=== PATIENT | female | born 1985 | race Caucasian/White ===

== ENCOUNTER 2020-01-08 14:46 | Outpatient (REF) | payer MEDICAID, SELFPAY ==
[2020-01-09 04:27] LABS: CT PCR DETECTED (Not Detect.); NG PCR NOT DETECTED (Not Detect.)
[2020-01-09 09:33] LABS: BV Int Neg Control Negative (Negative); BV Int Pos Control Positive (Positive)
[2020-01-15 20:09] LABS: HPV 16 RNA DETECTED (NOT DETECTED); HPV mRNA E6/E7 rflx Detected (Not Detected)
== END 2020-01-08 14:47 | disposition home or self-care (01) ==
LOC: HO.LAB 14:46
PROVIDERS: Visit Provider Advanced Practice Midwife
DX: Z01.419 Encounter for gynecological examination (general) (routine) without abnormal findings (principal); R10.2 Pelvic and perineal pain; Z20.2 Contact with and (suspected) exposure to infections with a predominantly sexual mode of transmission; R87.610 Atypical squamous cells of undetermined significance on cytologic smear of cervix (ASC-US); R87.810 Cervical high risk human papillomavirus (HPV) DNA test positive
CPT/HCPCS: 87480; 87491; 87510; 87591; 87624; 87625; 87660; 88141; 88142

== ENCOUNTER 2020-01-15 15:34 | Outpatient (REF) | payer MEDICAID, SELFPAY ==
--- NOTE | 2020-01-15 15:37 | US_ITS ---
EXAMINATION: ULTRASOUND PELVIS COMPLETE. CLINICAL INFORMATION: Pelvic and perineal pain COMPARISON: Ultrasound pelvis 07/14/2019 TECHNIQUE: Transabdominal and transvaginal ultrasound pelvis is performed. FINDINGS: The uterus is anteverted measuring 11.1 cm in length, 5.1 cm in AP and 5.8 cm in transverse dimension. No focal uterine lesions seen. The endometrial thickness is 1.3 cm. Right ovary measures 4.1 x 1.7 x 3.2 cm and volume 11.9 mL. It appears unremarkable. Previously right ovary measured 3.3 x 2.1 x 1.6 cm. There is small right para ovarian cyst measuring 1.5 x 1.5 x 1.4 cm. Left ovary measures 4.3 x 2.2 x 3.4 cm and volume 17.0 mL. It appears unremarkable. Previously it measured 4.2 x 3.0 x 2.3 cm. There is no free fluid in cul-de-sac US/US transvaginal IMPRESSION: Small right para ovarian cyst. The uterus and ovaries are unremarkable.
--- NOTE | 2020-01-15 15:37 | US_ITS ---
EXAMINATION: ULTRASOUND PELVIS COMPLETE. CLINICAL INFORMATION: Pelvic and perineal pain COMPARISON: Ultrasound pelvis 07/14/2019 TECHNIQUE: Transabdominal and transvaginal ultrasound pelvis is performed. FINDINGS: The uterus is anteverted measuring 11.1 cm in length, 5.1 cm in AP and 5.8 cm in transverse dimension. No focal uterine lesions seen. The endometrial thickness is 1.3 cm. Right ovary measures 4.1 x 1.7 x 3.2 cm and volume 11.9 mL. It appears unremarkable. Previously right ovary measured 3.3 x 2.1 x 1.6 cm. There is small right para ovarian cyst measuring 1.5 x 1.5 x 1.4 cm. Left ovary measures 4.3 x 2.2 x 3.4 cm and volume 17.0 mL. It appears unremarkable. Previously it measured 4.2 x 3.0 x 2.3 cm. There is no free fluid in cul-de-sac US/US pelvic complete IMPRESSION: Small right para ovarian cyst. The uterus and ovaries are unremarkable.
== END 2020-01-15 15:35 | disposition home or self-care (01) ==
LOC: HO.US 15:34
PROVIDERS: PCP Family Medicine; Visit Provider Advanced Practice Midwife
DX: R10.2 Pelvic and perineal pain (principal)
CPT/HCPCS: 76830; 76856

== ENCOUNTER → 2020-01-29 13:31 | Outpatient (BNVA) | payer MEDICAID, SELFPAY | PROVIDERS: PCP Family Medicine; Visit Provider Advanced Practice Midwife | DX: Z76.89 Persons encountering health services in other specified circumstances (principal) ==

== ENCOUNTER 2020-02-15 07:06 | Outpatient (REF) | payer MEDICAID, SELFPAY | END 2020-02-15 07:07 | disposition home or self-care (01) | LOC: HO.LAB 07:06 | PROVIDERS: Visit Provider Internal Medicine | DX: Z20.828 Contact with and (suspected) exposure to other viral communicable diseases (principal) | CPT/HCPCS: C9803; U0003 ==

== ENCOUNTER 2020-04-05 14:12 | Outpatient (REF) | payer MEDICAID, SELFPAY | END 2020-04-05 14:13 | disposition home or self-care (01) | LOC: HO.LAB 14:12 | PROVIDERS: Visit Provider Obstetrics & Gynecology | DX: R87.610 Atypical squamous cells of undetermined significance on cytologic smear of cervix (ASC-US) (principal); R87.810 Cervical high risk human papillomavirus (HPV) DNA test positive | CPT/HCPCS: 57454; 88305 ==

== ENCOUNTER → 2020-04-19 11:55 | Outpatient (BNVA) | payer MEDICAID, SELFPAY | PROVIDERS: Visit Provider Obstetrics & Gynecology | DX: R87.610 Atypical squamous cells of undetermined significance on cytologic smear of cervix (ASC-US) (principal); R87.810 Cervical high risk human papillomavirus (HPV) DNA test positive ==

== ENCOUNTER 2020-05-03 14:20 | Outpatient (REF) | payer MEDICAID, SELFPAY ==
[2020-05-04 09:19] LABS: CT PCR NOT DETECTED (Not Detect.); NG PCR NOT DETECTED (Not Detect.)
== END 2020-05-03 14:21 | disposition home or self-care (01) ==
LOC: HO.LAB 14:20
PROVIDERS: Visit Provider Advanced Practice Midwife
DX: Z20.2 Contact with and (suspected) exposure to infections with a predominantly sexual mode of transmission (principal)
CPT/HCPCS: 87491; 87591; 99212

== ENCOUNTER 2020-06-24 08:19 | Outpatient (REF) | payer MEDICAID, SELFPAY ==
[2020-06-24 13:56] LABS: CT PCR NOT DETECTED (Not Detect.); NG PCR NOT DETECTED (Not Detect.)
[2020-06-25 12:05] LABS: BV Int Neg Control Negative (Negative); BV Int Pos Control Positive (Positive)
== END 2020-06-24 08:20 | disposition home or self-care (01) ==
LOC: HO.LAB 08:19
PROVIDERS: PCP Family Medicine; Visit Provider Advanced Practice Midwife
DX: Z11.3 Encounter for screening for infections with a predominantly sexual mode of transmission (principal); R10.2 Pelvic and perineal pain
CPT/HCPCS: 81003; 87480; 87491; 87510; 87591; 87660; 99212

== ENCOUNTER 2020-07-10 09:09 | Outpatient (REF) | payer MEDICAID, SELFPAY ==
[2020-07-10 14:12] LABS: CT PCR NOT DETECTED (Not Detect.); NG PCR NOT DETECTED (Not Detect.)
[2020-07-13 14:17] LABS: HPV 16 RNA DETECTED (NOT DETECTED); HPV mRNA E6/E7 rflx Detected (Not Detected)
== END 2020-07-10 09:10 | disposition home or self-care (01) ==
LOC: HO.LAB 09:09
PROVIDERS: Visit Provider Obstetrics & Gynecology
DX: Z01.419 Encounter for gynecological examination (general) (routine) without abnormal findings (principal); R10.2 Pelvic and perineal pain
CPT/HCPCS: 81025; 87491; 87591; 87624; 87625; 88142

== ENCOUNTER 2020-07-16 10:01 | Outpatient (REF) | payer MEDICAID, SELFPAY ==
--- NOTE | ~2020-07-16 | US_ITS ---
EXAMINATION: PELVIC ULTRASOUND CLINICAL INFORMATION: Pain COMPARISON: Previous pelvic ultrasounds, most recent December 2019 TECHNIQUE: Transabdominal and transvaginal pelvic ultrasound was performed. Transvaginal exam was performed for better visualization of the uterus and ovaries. FINDINGS: The uterus is anteverted and measures 9 x 5.5 x 6.8 cm in dimension. No focal uterine lesion is seen. Endometrial thickness is normal measuring 1.4 cm. The right ovary measures 4 x 1.9 x 1.7 cm. There is a 1.4 x 1.6 x 1.7 cm simple right adnexal or paraovarian cyst. This may represent the same cyst seen on previous exam. There is a second smaller 1 x 0.7 x 0.8 cm right adnexal or paraovarian cyst. The left ovary is normal-appearing and measures 2.5 x 2.4 x 2.9 cm. There is a small amount of fluid in the pelvis. US/US pelvic and transvaginal IMPRESSION: Two simple right adnexal or paraovarian cysts, largest measuring 1.4 x 1.6 x 1.7 cm. This may represent the same cyst seen on previous exams.
== END 2020-07-16 10:02 | disposition home or self-care (01) ==
LOC: HO.HMGCX 10:01
PROVIDERS: Visit Provider Obstetrics & Gynecology
DX: R10.2 Pelvic and perineal pain (principal)
CPT/HCPCS: 76830; 76856

== ENCOUNTER 2020-07-31 09:04 | Outpatient (REF) | payer MEDICAID, SELFPAY | END 2020-07-31 09:05 | disposition home or self-care (01) | LOC: HO.LAB 09:04 | PROVIDERS: PCP Family Medicine; Visit Provider Obstetrics & Gynecology | DX: R10.2 Pelvic and perineal pain (principal); A63.0 Anogenital (venereal) warts; Z79.899 Other long term (current) drug therapy | CPT/HCPCS: 57454; 88305; 88342; 88360; 99212 ==

== ENCOUNTER 2020-08-04 11:47 | Emergency (ER) | payer MEDICAID, SELFPAY ==
--- NOTE | ~2020-08-04 | CT_ITS ---
EXAMINATION: CT FACIAL BONES WITHOUT CONTRAST CLINICAL INFORMATION: 34-year-old female with history of right mandibular pain after dislocation, reduction. COMPARISON: None TECHNIQUE: Noncontrast multidetector CT imaging examination of facial bones performed. Axial images are presented at 1.5 mm and 3 mm slice thickness. Coronal and sagittal reformatted images were generated and reviewed. This CT examination was performed using dose optimization techniques as appropriate, variously including the following: *Automated exposure control *Adjustment of mA and/or kV according to patient size (this includes techniques or standardized protocols for targeted exams where dose is matched to indication/reason for exam; i.e. extremities or head) *Use of iterative reconstruction technique DLP: 309 mGy-cm FINDINGS: The globes and orbital choe, including lamina papyracea, are intact. The orbital apex, optic canals, and retrobulbar fat planes are normal. The maxilla, mandible and temporomandibular joints are intact. No evidence of fracture, subluxation or effusion at either temporomandibular joint. No evidence of periodontal disease. Nasal bones, pterygoid plates and zygomatic arches are normal. Mucosal thickening/secretions of the inferior left maxillary antrum without air-fluid level. Also, secretions are noted within a left anterior ethmoid air cell. Otherwise, the paranasal sinuses are well-aerated, and the ostiomeatal units are patent. CT/CT facial bones wo con IMPRESSION: No facial bone injury. Specifically, no evidence of fracture or malalignment at the right temporomandibular joint.
[2020-08-04 12:08] VITALS: BP 128/78; PULSE 97; RESP 18; TEMP 36.6; O2SAT 98; BMI 29.0
--- NOTE | 2020-08-04 12:38 | ED_ITS ---
HPI - Dental/Oral General Chief complaint: Dental/Oral Stated complaint: dislocated jaw? dental pain Time Seen by Provider: 08/04/20 12:19 History of Present Illness HPI Narrative: Patient complains of right mandible pain after her jaw dislocated as it has done frequently in her life and she put it back herself and usually there is no discomfort after its back but now there is lots of pain on the right side of the mandible, no headache no ear pain no neck pain Related Data Home Medications Medication Instructions Recorded Confirmed propranolol 60 mg capsule,24 60 mg PO DAILY 01/29/20 hr,extended release Previous Rx's Medication Instructions Recorded azithromycin 500 mg tablet 1,000 mg PO DAILY 1 Days #2 tab 01/09/20 fluconazole 150 mg tablet 150 mg PO DAILY #1 tab 01/09/20 metronidazole 0.75 % vaginal gel 1 appful VAGINAL DAILY PRN 5 Days 01/09/20 #70 g metronidazole 0.75 % vaginal gel 1 appful VAGINAL BEDTIME 5 Days 06/25/20 #70 g acetaminophen 1,000 mg PO QID PRN #30 tab 08/04/20 ibuprofen 600 mg PO Q6H PRN #20 tab 08/04/20 oxycodone 5 mg PO Q6H PRN #14 tab 08/04/20 Allergies Allergy/AdvReac Type Severity Reaction Status Date / Time No Known Allergies Allergy Verified 07/10/20 09:19 Review of Systems Review of Systems: Positive right-sided jaw pain Negatives are no fever no chills no dizziness no weakness no fainting of feeling faint no headache no ear pain no difficulty breathing or swallowing no difficulty speaking no throat pain no neck pain no chest pain no shortness of breath Yes all other systems are reviewed and are negative [facility] Past Medical History Source: nursing notes reviewed Medical History (Updated 08/04/20 @ 14:13 by BERNADETTE Storm) See's palsy Dysplasia of cervix, low grade (OLAYINKA 1) Migraine Surgical History Hx of tubal ligation Social History Social History Alcohol intake: never Patient Tobacco Use Status: Never used Tobacco Advance Directives: No Advance Directives Information Provided: No Patient : No Gender identity: female Physical Exam Vital Signs: Vital Signs: Last Vital Signs Temp 97.9 F 08/04/20 12:08 Pulse 97 08/04/20 12:08 Resp 18 08/04/20 12:08 BP 128/78 08/04/20 12:08 Pulse Ox 98 08/04/20 12:08 Body Mass Index 29.0 General appearance no acute distress Head is normocephalic atraumatic The facial exam the patient can open and close mouth easily, she is able to speak easily there is no drooling There is tenderness over the right side of the mandible and the right TMJ but no swelling or deformity The ear exam the right ear has patent canal with normal tympanic membrane The pharynx is clear, no trismus, voice is normal, well hydrated, no swelling The neck is supple Chest is clear to auscultation bilaterally with symmetric breath sounds Heart no murmur Extremities full range of motion x4 Neuro no focal motor or sensory deficit Course Course Course Narrative: Patient with frequent mandible dislocations who is able to the reduce the mandible dislocation by herself did that this morning and now has lots of pain in the right side of the mandible which is unusual for her CT scan showed normal alignment without any evidence of bony injury Patient is able to speak and open and close mouth and is advised to get a referral from primary care to follow with oral surgeon or maxillofacial surgeon to see if there is any possible repair for the frequent dislocations She is discharged to follow-up with pain medication as needed MDM - Dental/Oral Lab Data Labs: Lab Results 08/04/20 Range/Units 12:51 Urine Test NEGATIVE (NEGATIVE) Discharge Plan Discharge Clinical Impression: Dislocation of mandible Patient Disposition: Home, Self-Care Additional Instructions: CT scan showed normal alignment with no fracture in the right side of the mandible Pain is most likely from straining of soft tissue muscles and ligaments in the area See primary doctor for referral to oral surgeon or maxillofacial surgeon to see if there is any possible treatment for these frequent dislocations Return any time any worse condition or any concerns Prescriptions: New acetaminophen 500 mg tablet 1,000 mg PO QID PRN (Reason: pain) Qty: 30 RF: 0 ibuprofen 600 mg tablet 600 mg PO Q6H PRN (Reason: pain) Qty: 20 RF: 0 oxycodone 5 mg tablet 5 mg PO Q6H PRN (Reason: pain) Qty: 14 RF: 0 No Action azithromycin 500 mg tablet 1,000 mg PO DAILY 1 Days Qty: 2 RF: 0 metronidazole [Metrogel Vaginal] 0.75 % gel 1 appful vaginal DAILY PRN (Reason: Bacterial Vaginosis) 5 Days Qty: 70 RF: 0 fluconazole [Diflucan] 150 mg tablet 150 mg PO DAILY Qty: 1 RF: 0 metronidazole [Metrogel Vaginal] 0.75 % gel 1 appful vaginal BEDTIME 5 Days Qty: 70 RF: 0 propranolol 60 mg capsule,extended release 24 hr 60 mg PO DAILY RF: 0
[2020-08-04 13:00] LABS: UPreg QC Valid YES; Urine Pregnancy NEGATIVE (NEGATIVE)
[2020-08-04] MEDS: Ibuprofen 600 MG TABLET PO (14:05)
== END 2020-08-04 14:35 | disposition home or self-care (01) ==
PROVIDERS: Physician Assistant Medical; Emergency Provider Emergency Medicine; PCP Family Medicine
DX: M24.49 Recurrent dislocation, other specified joint (principal)
CPT/HCPCS: 70486; 81025; 99284

== ENCOUNTER → 2020-08-20 15:48 | Outpatient (BNVA) | payer MEDICAID, SELFPAY | PROVIDERS: PCP Family Medicine; Visit Provider Obstetrics & Gynecology ==

== ENCOUNTER → 2020-08-26 13:08 | Outpatient (BNVA) | payer MEDICAID, SELFPAY | PROVIDERS: Visit Provider Obstetrics & Gynecology | DX: D06.9 Carcinoma in situ of cervix, unspecified (principal) | CPT/HCPCS: 99212 ==

== ENCOUNTER 2020-08-30 11:15 | Day surgery (SDC) | payer MEDICAID, SELFPAY ==
--- NOTE | 2020-08-29 09:26 | HO.ANESPROP2 ---
Documented by User: Jenni Guerrero 08/29/20 09:26 HPI - Anesthesia Eval Consult details Narrative: 34yo F for LEEP [facility]one PMFSH Active Problems Active Problems: All Active Problems (Updated 08/20/20 @ 15:50 by Lito Rodas MD) OLAYINKA III (cervical intraepithelial neoplasia grade III) with severe dysplasia (Acute) Chlamydia contact, treated (Acute) Pelvic pain in female (Acute) Well woman exam (Acute) HPV (human papilloma virus) anogenital infection (Acute) Past Medical History Medical History See's palsy Dysplasia of cervix, low grade (OLAYINKA 1) Migraine Surgical History Surgical History Hx of tubal ligation Social History Social History Alcohol intake: never Patient Tobacco Use Status: Never used Tobacco Second Hand Smoke Exposure: No Use of substances other than those prescribed or required for medical reasons: No Are you DNR?: No Advance Directives: No Advance Directives Information Provided: Yes Advance Directives on File: No Patient : No Gender identity: female Meds Allergies Allergy/AdvReac Type Severity Reaction Status Date / Time No Known Allergies Allergy Verified 08/26/20 13:14 Home Medications Medication Instructions Recorded Confirmed Last Taken Type propranolol 60 mg capsule,24 60 mg PO DAILY 01/29/20 Unknown History hr,extended release Exam Exam Date and Time: August 29, 2020925 Assessment and Plan Assessment Anesthesia Assessment: Chart Reviewed Documented by User: Kimberly Campbell 08/30/20 13:50 [facility] Past Medical History Medical History See's palsy Dysplasia of cervix, low grade (OLAYINKA 1) Migraine Surgical History Surgical History Hx of tubal ligation Social History Social History Alcohol intake: never Patient Tobacco Use Status: Never used Tobacco Second Hand Smoke Exposure: No Use of substances other than those prescribed or required for medical reasons: No Are you DNR?: No Advance Directives: No Advance Directives Information Provided: Yes Advance Directives on File: No Patient : No Gender identity: female Meds Allergies Allergy/AdvReac Type Severity Reaction Status Date / Time No Known Allergies Allergy Verified 08/26/20 13:14 Home Medications Medication Instructions Recorded Confirmed Last Taken Type propranolol 60 mg capsule,24 60 mg PO DAILY 01/29/20 Unknown History hr,extended release Exam Airway Mallampati Class: II TM Dist: >3cm Neck ROM: Full Assessment and Plan Assessment Anesthesia Assessment: Anesthesia Plan Discussed and Chart Reviewed Final Anesthetic Review NPO: Yes ASA Class: II Final Preanesthetic Review: No Changes in Pt Med Stat, Meds/Allgs Chart Reviewed, Consent Obtained/Reviewed and Anes Risks/Benef Reviewed Patient Risk: Low Procedure Risk: Low Assessment/Block/Sedation in SS: Assess/Block/Sedation-SS Anesthetic Plan Anesthetic Plan: MAC: Disposition: Standard PACU
[2020-08-30 12:03] LABS: UPreg QC Valid YES; Urine Pregnancy NEGATIVE (NEGATIVE)
[2020-08-30 12:17] VITALS: BMI 28.7
[2020-08-30 12:19] VITALS: BP 112/70; PULSE 79; RESP 16; TEMP 36.3; O2SAT 98
[2020-08-30] MEDS: Lactated Ringers 1,000 ML 100 ML IVCONT (12:33)
--- NOTE | 2020-08-30 13:49 | MHC.SHP ---
Pre-Procedural Eval Section A Date of Service: 08/30/20 The patient is an INPATIENT: No Changes since office visit: No Cold of Flu in the past 2 weeks, No New Medical Problems, No Changes in Medication and No Patient answered all questions The History & Physical has been completed within 30 days and I have reviewed it.: Yes Section B Chief Complaint: anogenital warts Allergies: Allergies Allergy/AdvReac Type Severity Reaction Status Date / Time No Known Allergies Allergy Verified 08/26/20 13:14 Plan Diagnosis/Plan: Unchanged I have reviewed the history and physical and performed a pertinent physical examination on my patient. No changes have occurred unless specified.
--- NOTE | 2020-08-30 14:18 | P.BOP_ITS ---
Brief Operative Note Date of Service: 08/30/20 Pre-op diagnosis: OLAYINKA 3 with positive ECC Post-op diagnosis: same Procedure: LEEP CONE with post CONE ECC Surgeon: Lito Rodas MD Anesthesia: local and other (Paracervical block) Was an Biofuels Plant Construction Worker used for this Procedure?: No Estimated blood loss (mL): 0 Pathology: other (Cervical cone, Endocx, Post cone ECC) Disposition: other (Home)
--- NOTE | 2020-08-30 14:19 | W.PM.OPN ---
Operative Note Operative Note Date of Service: 01/26/20 Narrative: Preop diagnosis: OLAYINKA 3 with + ECC Operation: LEEP Cone with post cone ECC Post op diagnosis: same Anesthesia: paracervical block Complications: none Pathology: Cervical cone with endocervix & post cone RCC QBL: minimal Procedure: The patient was put in the dorsal lithotomy position, was prepped and draped in the usual sterile fashion. A sterile speculum was inserted inside the patient vagina. Using Lugol solution the cervix with Dyed with Lugol solution to identifiy the abnormal demarcating line. 10 cc of Marcaine0.5% with epinephrine were given at 2,4 , 8, and 10 o'clock. Using a medium-size loop wire, the cervical cone was excised followed by the endocervix, post cone ECC was done afterwards. Hemostasis was assured using cautery and Monsel solution. All instruments were taken out of the patient's vaginal cavity. the patient tolerated the procedure well and was discharged home with the following instructions: call if temperature is above 100.4, vaginal bleeding, abdominal pain or nausea or vomiting. Follow-up in the office in 2 weeks for postop visit
[2020-08-30 14:20] VITALS: BP 85/52; PULSE 88; RESP 16; TEMP 36.4; O2SAT 98
[2020-08-30 14:35] VITALS: BP 106/61; PULSE 91; RESP 16; O2SAT 97
[2020-08-30] MEDS: Acetaminophen 325 MG TABLET 650 MG PO (14:46)
[2020-08-30 14:50] VITALS: BP 107/71; PULSE 77; RESP 16; TEMP 36.4; O2SAT 99
== END 2020-08-30 15:18 ==
LOC: HO.SSS 11:16
PROVIDERS: PCP Family Medicine; Visit Provider Obstetrics & Gynecology
PROC: 0UBC7ZZ Excision of Cervix, Via Natural or Artificial Opening (ICD-10-PCS; CPT 57522; principal; 2020-08-30 12:50)
DX: A63.0 Anogenital (venereal) warts (principal); D06.0 Carcinoma in situ of endocervix; N72 Inflammatory disease of cervix uteri; Z87.410 Personal history of cervical dysplasia; G51.0 Bell's palsy; Z79.899 Other long term (current) drug therapy
CPT/HCPCS: 57522; 81025; 88305; 88307; J1100; J2250; J2405; J3010

== ENCOUNTER → 2020-09-24 13:36 | Outpatient (BNVA) | payer MEDICAID, SELFPAY | PROVIDERS: Visit Provider Obstetrics & Gynecology ==

== ENCOUNTER → 2020-10-02 14:00 | Outpatient (BNVA) | payer MEDICAID, SELFPAY | PROVIDERS: Visit Provider Obstetrics & Gynecology | DX: D06.9 Carcinoma in situ of cervix, unspecified (principal) | CPT/HCPCS: 99212 ==

== ENCOUNTER 2020-10-04 12:19 | Day surgery (SDC) | payer MEDICAID, SELFPAY ==
--- NOTE | 2020-10-03 15:10 | P.CONAN_ITS ---
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 (Acute) Chlamydia contact, treated (Acute) Pelvic pain in female (Acute) Well woman exam (Acute) HPV (human papilloma virus) anogenital infection (Acute) Past Medical History Medical History See's palsy Dysplasia of cervix, low grade (OLAYINKA 1) Migraine Surgical History Surgical History Hx of tubal ligation Social History Social History Alcohol intake: never Patient Tobacco Use Status: Never used Tobacco Second Hand Smoke Exposure: No Are you DNR?: No Advance Directives: No Advance Directives Information Provided: Yes Advance Directives on File: No Gender identity: Female Meds Allergies Allergy/AdvReac Type Severity Reaction Status Date / Time No Known Allergies Allergy Verified 08/26/20 13:14 Home Medications Medication Instructions Recorded Confirmed Last Taken Type propranolol 60 mg capsule,24 60 mg PO DAILY 01/29/20 Unknown History hr,extended release Exam Exam Date and Time: October 03, 2020 1510 Assessment and Plan Assessment Anesthesia Assessment: Chart Reviewed Documented by User: Kimberly Campbell MD 10/04/20 12:47 [facility] Past Medical History Medical History See's palsy Dysplasia of cervix, low grade (OLAYINKA 1) Migraine Family History Family history of problems with anesthesia: No Surgical History Surgical History Hx of tubal ligation History of Problems with Anesthesia: No Social History Social History Alcohol intake: never Patient Tobacco Use Status: Never used Tobacco Second Hand Smoke Exposure: No Are you DNR?: No Advance Directives: No Advance Directives Information Provided: Yes Advance Directives on File: No Gender identity: Female Meds Allergies Allergy/AdvReac Type Severity Reaction Status Date / Time No Known Allergies Allergy Verified 08/26/20 13:14 Home Medications Medication Instructions Recorded Confirmed Last Taken Type propranolol 60 mg capsule,24 60 mg PO DAILY 01/29/20 Unknown History hr,extended release Exam Airway Mallampati Class: II TM Dist: >3cm Neck ROM: Full Assessment and Plan Assessment Anesthesia Assessment: Anesthesia Plan Discussed Final Anesthetic Review Family History of Problems with Anesthesia: No History of Problems with Anesthesia: No NPO: Yes ASA Class: II Final Preanesthetic Review: No Changes in Pt Med Stat, Meds/Allgs Chart Reviewed, Consent Obtained/Reviewed and Anes Risks/Benef Reviewed Patient Risk: Low Procedure Risk: Low Assessment/Block/Sedation in SS: Assess/Block/Sedation-SS Anesthetic Plan Anesthetic Plan: MAC: Disposition: Standard PACU
[2020-10-04] VITALS (11 sets, daily range): BP systolic 107–114; BP diastolic 65–75; PULSE 62–89; RESP 16–20; TEMP 36.1–36.8; O2SAT 97–100; BMI 27.9
--- NOTE | 2020-10-04 12:32 | MHC.SHP ---
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 No changes have occurred unless specified.
[2020-10-04 12:43] LABS: UPreg QC Valid YES; Urine Pregnancy NEGATIVE (NEGATIVE)
[2020-10-04] MEDS: Lactated Ringers 1,000 ML 100 ML IVCONT (12:46)
--- NOTE | 2020-10-04 13:57 | P.BOP_ITS ---
Brief Operative Note Date of Service: 10/04/20 Pre-op diagnosis: OLAYINKA 3 with positive ECC Post-op diagnosis: same Procedure: LEEP cone was post cone ECC Surgeon: Lito Rodas MD Anesthesia: GETA Was an Electrical Installation Supervisor used for this Procedure?: No Estimated blood loss (mL): 150 Pathology: other (Cone, endocervix, post cone ECC) Condition: stable Disposition: PACU
--- NOTE | 2020-10-04 13:59 | W.PM.OPN ---
Operative Note Operative Note Date of Service: 10/04/20 Narrative: Preop diagnosis: OLAYINKA 3 with + ECC Operation: LEEP Cone with post cone ECC Post op diagnosis: same Anesthesia: paracervical block Complications: none Pathology: Cervical cone with endocervix & post cone ECC QBL: 150 cc Procedure: The patient was put in the dorsal lithotomy position, was prepped and draped in the usual sterile fashion. A sterile speculum was inserted inside the patient vagina. Colposcopy was done identified the abnormal area prior to Lugol solution. Using Lugol solution the cervix with Dyed with Lugol solution to identifiy the abnormal demarcating line. 2x1.0 Vicryl sutures was put at 3 and 06:00 o'clock to ligate the descending branches of the uterine artery. 10 cc of Marcaine0.5% with epinephrine were given at 2,4 , 8, and 10 o'clock. Using a medium-size loop wire, the anterior cervical lip was excised followed by the posterior cervical lip and endocervix, post cone ECC was done afterwards. Hemostasis was assured using cautery and Monsel solution. All instruments were taken out of the patient's vaginal cavity. the patient tolerated the procedure well and was discharged home with the following instructions: call if temperature is above 100.4, vaginal bleeding, abdominal pain or nausea or vomiting. Follow-up in the office in 2 weeks for postop visit
[2020-10-04] MEDS: Acetaminophen 325 MG TABLET 650 MG PO (14:42)
[2020-10-04] MEDS: oxyCODONE HCl Immed Release 5 MG TABLET PO ×2 (14:42→15:28)
[2020-10-04] MEDS: fentaNYL citrate/PF 100 MCG/2 ML VIAL 25 MCG IVPUSH (15:31)
== END 2020-10-04 16:08 | disposition home or self-care (01) ==
PROVIDERS: PCP Family Medicine; Visit Provider Obstetrics & Gynecology
PROC: 0UBC7ZZ Excision of Cervix, Via Natural or Artificial Opening (ICD-10-PCS; CPT 57522; principal; 2020-10-04 14:40)
DX: N87.1 Moderate cervical dysplasia (principal); N72 Inflammatory disease of cervix uteri; G51.0 Bell's palsy; Z98.51 Tubal ligation status
CPT/HCPCS: 57461; 81025; 88305; 88307; J1100; J2250; J2405; J3010

== ENCOUNTER → 2020-10-16 11:51 | Outpatient (BNVA) | payer MEDICAID, SELFPAY | PROVIDERS: PCP Family Medicine; Visit Provider Obstetrics & Gynecology ==

== ENCOUNTER → 2020-10-17 13:00 | Outpatient (BNVA) | payer MEDICAID, SELFPAY | PROVIDERS: PCP Family Medicine; Visit Provider Obstetrics & Gynecology | DX: D06.9 Carcinoma in situ of cervix, unspecified (principal); N76.0 Acute vaginitis; B96.89 Other specified bacterial agents as the cause of diseases classified elsewhere | CPT/HCPCS: 99212 ==

== ENCOUNTER 2021-09-08 14:01 | Outpatient (REF) | payer MEDICAID, SELFPAY ==
[2021-09-11 04:26] LABS: HPV mRNA E6/E7 rflx Not Detected (Not Detected)
== END 2021-09-08 14:02 | disposition home or self-care (01) ==
LOC: HO.LAB 14:01
PROVIDERS: Visit Provider Obstetrics & Gynecology
DX: Z01.419 Encounter for gynecological examination (general) (routine) without abnormal findings (principal); Z11.51 Encounter for screening for human papillomavirus (HPV); R10.2 Pelvic and perineal pain; A63.0 Anogenital (venereal) warts
CPT/HCPCS: 87624; 88142

== ENCOUNTER → 2022-08-06 09:51 | Outpatient (BNVA) | payer MEDICAID, SELFPAY | PROVIDERS: PCP Family Medicine; Visit Provider Nurse Practitioner Family | DX: G47.10 Hypersomnia, unspecified (principal); R06.83 Snoring | CPT/HCPCS: 99202 ==

== ENCOUNTER 2022-09-10 13:56 | Outpatient (REF) | payer MEDICAID, SELFPAY ==
[2022-09-10 18:07] LABS: CT PCR NOT DETECTED (Not Detect.); NG PCR NOT DETECTED (Not Detect.)
[2022-09-18 06:10] LABS: HPV mRNA E6/E7 rflx Not Detected (Not Detected)
== END 2022-09-10 13:57 | disposition home or self-care (01) ==
LOC: HO.LNP 13:56
PROVIDERS: PCP Family Medicine; Visit Provider Obstetrics & Gynecology
DX: Z01.419 Encounter for gynecological examination (general) (routine) without abnormal findings (principal); Z11.51 Encounter for screening for human papillomavirus (HPV); R10.2 Pelvic and perineal pain
CPT/HCPCS: 0353U; 81025; 87624; 88142

== ENCOUNTER 2022-09-10 13:56 | Outpatient (AMB) | payer MEDICAID, SELFPAY ==
--- NOTE | 2022-09-10 14:12 | MHC.OFFVIS ---
Intake Vital Signs 09/10/22 14:13 Height 5 ft 6 in Weight 189 lb BMI 30.5 BP 110/66 Intake Visit Reasons: Annual/do not rs Hazardous Materials Waste Technician Required: Yes Hazardous Materials Waste Technician Language: Compensation Business Partner Name: Moira ROSEN Information Interpreted: non-clinical & clinical Finance Consultant: Finance Consultant Present (Moira) Allergies No Known Allergies Allergy (Verified 09/10/22 14:17) Is last menstrual period known: Yes Last menstrual period: 09/03/22 Post menopausal: No HPI HPI Comments History of Present Illness Details Presenting for annual exam. Complaining of pelvic pain few days duration no associated urinary or GI symptoms no fever or chills. 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 Dysplasia of cervix, low grade (OLAYINKA 1) Migraine Surgical History History of surgery of uterus Hx of tubal ligation Family History Mother Fibromyalgia Father HTN (hypertension) Maternal Grandmother Uterine cancer Sister Uterine cancer Social History Alcohol intake: never Patient Tobacco Use Status: Never used Tobacco Second Hand Smoke Exposure: No Gender identity: Female Female Reproductive History Menstrual Age of Menarche: 18 Duration of menses: 6-7 days Date of last menstrual period: 09/03/22 control method: permanent sterilization Total pregnancies: 4 Full term: 3 Number of Living Children: 3 Ab spontaneous: 1 Date of last pap smear: 09/09/21 (negative) History of abnormal pap smear: Yes Review of Systems Const All systems reviewed & are unremarkable except as noted in HPI and below Card Reports as per HPI Resp Reports as per HPI GI Reports as per HPI and Reports no additional complaints Reports as per HPI Physical Exam Vital Signs: Last Vital Signs BP 110/66 09/10/22 14:13 BMI result Body Mass Index 30.5 Const General: cooperative, healthy appearing and comfortable Chest Chest palpation & inspection: normal inspection of the chest and normal palpation of entire chest wall Breast/axilla inspection: normal inspection of the breasts and normal inspection of the axillae Breast/axilla palpation: normal palpation of the breasts, normal palpation of the axillae and no axillary lymphadenopathy Resp Effort & Inspection: normal respiratory effort Auscultation: clear to auscultation bilaterally Percussion: percussion normal Cardio Palpation: normal PMI Rate: regular rate Rhythm: regular rhythm Heart sounds: no murmurs and no rubs Peripheral pulses: Peripheral pulses 2+ throughout GI Inspection: Yes normal to inspection Palpation (GI): Soft to palpation, nontender, no guarding, not rigid and No hepatosplenomegaly present Percussion: Yes normal to percussion Auscultation: normal bowel sounds Rectal Exam - Female: deferred General: Yes bladder normal to palpation External Female Exam: No lesion Speculum Exam - Vagina: normal appearance of the vagina, normal palpation, normal vaginal discharge and not erythematous Speculum Exam - Cervix: normal appearance of the cervix and normal palpation Bimanual exam- vagina & uterus: normal bimanual exam, normal palpation, uterine size normal, bladder normal to palpation, consistency normal and normal palpation Bimanual Exam- Adnexa, other: normal adnexae, no masses and no tenderness Assessment & Plan Assessment & Plan (1) Well woman exam: Comment: OLAYINKA 3 in 2020 s/p LEEP cone x2 with neg margins Code(s): Z01.419 - Encounter for gynecological examination (general) (routine) without abnormal findings Plan: Cotesting done. Counseled the patient about the recommended dietary allowance of 1000 mg of Calcium & 600 IU of vitamin D. The patient was instructed to perform monthly self-breast exams and to schedule an annual exam in a year; All questions answered and the patient verbalized understanding. Instructed the patient to schedule annual exam in a year (2) Pelvic pain in female: Code(s): R10.2 - Pelvic and perineal pain Plan: Urine dip and test done in the office were both negative. GC and chlamydia taken and pelvic ultrasound ordered. Discussed with the patient the differential diagnosis of pelvic pain including but not limited to adnexal, uterine masses, pelvic infections (PID), GI the (Irritable bowel syndrome, diverticulitis, others), musculoskeletal, myofascial pain abdominal wall , adhesions, endometriosis, psychological and others causes. Will check results and treat accordingly. All questions answered, the patient verbalized understanding. Instructed the patient to schedule follow-up appointment in 2 weeks Orders: Orders US pelvic and transvaginal Today R10.2 - Pelvic and perineal pain CT NG by PCR Today Z01.419 - Encounter for gynecological examination (general) (routine) without abnormal findings Pap Smear Today Z01.419 - Encounter for gynecological examination (general) (routine) without abnormal findings Coding Level of Care Code Est Pt Prev Care 18-39y(10076) Diagnoses Well woman exam Z01.419 Pelvic pain in female R10.2
[2022-09-10 14:13] VITALS: BP 110/66; BMI 30.5
== END 2022-09-10 14:45 | disposition home or self-care (01) ==
LOC: HO.HWS 13:56
PROVIDERS: PCP Family Medicine; Visit Provider Obstetrics & Gynecology
DX: Z01.419 Encounter for gynecological examination (general) (routine) without abnormal findings (principal); R10.2 Pelvic and perineal pain; Z32.02 Encounter for pregnancy test, result negative
CPT/HCPCS: 99395

== ENCOUNTER 2022-09-17 14:55 | Outpatient (REF) | payer MEDICAID, SELFPAY ==
--- NOTE | ~2022-09-17 | US_ITS ---
EXAMINATION: US PELVIS CLINICAL INFORMATION: Pelvic and perineal pain. COMPARISON: Pelvic ultrasounds dating between 07/16/2020 and 03/18/2018. TECHNIQUE: Ultrasound of the pelvis is performed using both transabdominal and transvaginal transducers along with Doppler. Transvaginal imaging is performed due to inadequate visualization transabdominally. FINDINGS: Uterus: The uterus is anteverted and measures 10.8 x 5.3 x 5.9 cm. The double wall endometrial thickness is 16 mm. The uterus is smooth in contour and has normal myometrial echogenicity. No visible fibroid. Adnexa: Both ovaries are visualized. There is normal color flow to the adnexa. There is no ovarian torsion. There is no pelvic ascites or fluid collection. Right ovary measures 3.9 x 2.4 x 2.3 cm. It contains dominant follicles. Left ovary measures 3.5 x 1.3 x 1.7 cm. US/US pelvic and transvaginal IMPRESSION: No acute finding. Endometrial stripe upper normal in thickness.
== END 2022-09-17 14:56 | disposition home or self-care (01) ==
LOC: HO.US 14:55
PROVIDERS: PCP Family Medicine; Visit Provider Obstetrics & Gynecology
DX: R10.2 Pelvic and perineal pain (principal)
CPT/HCPCS: 76830; 76856

== ENCOUNTER → 2022-09-28 14:01 | Outpatient (REF) | payer MEDICAID, SELFPAY | LOC: HO.SL 14:01 | PROVIDERS: PCP Family Medicine; Visit Provider Nurse Practitioner Family | DX: G47.10 Hypersomnia, unspecified (principal) | CPT/HCPCS: 95806 ==

== ENCOUNTER → 2022-09-28 14:24 | Outpatient (BNV) | payer MEDICAID, SELFPAY | PROVIDERS: PCP Family Medicine; Visit Provider Psychiatry & Neurology Neurology | DX: G47.10 Hypersomnia, unspecified (principal) | CPT/HCPCS: 95806 ==

== ENCOUNTER 2022-10-28 11:31 | Outpatient (AMB) | payer MEDICAID, SELFPAY ==
[2022-10-28 11:37] VITALS: BMI 31.8
--- NOTE | 2022-10-28 11:37 | MHC.OFFVIS ---
Intake Vital Signs 10/28/22 11:37 Height 5 ft 6 in Weight 197 lb BMI 31.8 Intake Visit Reasons: 2 mnts f/u for sleep-Confirmed Intake Note: Pt presents as a 2 month f/u for sleep. Software Reliability Engineer Required: Yes Software Reliability Engineer Name: [id number] [id number] Allergies No Known Allergies Allergy (Verified 10/28/22 11:43) HPI HPI Comments History of Present Illness Details 36 y/o female patient presents for follow up of sleep study. 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 The home sleep study result was normal home sleep test, The AHI was less than 1/hr and oxygen franko was 92%. However, pt reports that she did not sleep well during the sleep study. Pt also reports that she quit her job due to excessive daytime sleepiness. She has difficulty staying awake and keep falling asleep and being tired all day. Pt's last [place] sleepiness scale was 19. 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 Dysplasia of cervix, low grade (OLAYINKA 1) Migraine Surgical History History of surgery of uterus Hx of tubal ligation Family History Mother Fibromyalgia Father HTN (hypertension) Maternal Grandmother Uterine cancer Sister Uterine cancer Social History Alcohol intake: never Patient Tobacco Use Status: Never used Tobacco Second Hand Smoke Exposure: No Gender identity: Female Female Reproductive History Menstrual Age of Menarche: 18 Review of Systems Const All systems reviewed & are unremarkable except as noted in HPI and below Physical Exam Vital Signs: Oxygen Delivery Method Room Air 10/28/22 11:37 BMI result Body Mass Index 31.8 Const General: cooperative, healthy appearing and comfortable Chest Chest palpation & inspection: normal inspection of the chest and normal palpation of entire chest wall Breast/axilla inspection: normal inspection of the breasts and normal inspection of the axillae Breast/axilla palpation: normal palpation of the breasts, normal palpation of the axillae and no axillary lymphadenopathy Resp Effort & Inspection: normal respiratory effort Auscultation: clear to auscultation bilaterally Percussion: percussion normal Cardio Palpation: normal PMI Rate: regular rate Rhythm: regular rhythm Heart sounds: no murmurs and no rubs Peripheral pulses: Peripheral pulses 2+ throughout GI Inspection: Yes normal to inspection Palpation (GI): Soft to palpation, nontender, no guarding, not rigid and No hepatosplenomegaly present Percussion: Yes normal to percussion Auscultation: normal bowel sounds Rectal Exam - Female: deferred General: Yes bladder normal to palpation External Female Exam: No lesion Speculum Exam - Vagina: normal appearance of the vagina, normal palpation, normal vaginal discharge and not erythematous Speculum Exam - Cervix: normal appearance of the cervix and normal palpation Bimanual exam- vagina & uterus: normal bimanual exam, normal palpation, uterine size normal, bladder normal to palpation, consistency normal and normal palpation Bimanual Exam- Adnexa, other: normal adnexae, no masses and no tenderness Assessment & Plan Assessment & Plan (1) Excessive sleepiness: Comment: [place] sleepiness scale is 19 Code(s): G47.10 - Hypersomnia, unspecified (2) Snoring: Code(s): R06.83 - Snoring Plan Pt is advised to undergo MSLT study to assess for sleep apnea and narcolepsy. Will f/u with pt after study to discuss results and appropriate treatment options. Sleep hygiene education provided. Wt reduction advised. Pt to call with any worsening concerns or questions. Coding Level of Care Code Est Pt Level 3 (68977) Diagnoses Excessive sleepiness G47.10 Snoring R06.83
== END 2022-10-28 11:53 | disposition home or self-care (01) ==
PROVIDERS: PCP Family Medicine; Visit Provider Nurse Practitioner Family
DX: G47.10 Hypersomnia, unspecified (principal); R06.83 Snoring
CPT/HCPCS: 99213

== ENCOUNTER → 2022-10-28 11:31 | Outpatient (BNVA) | payer MEDICAID, SELFPAY | PROVIDERS: PCP Family Medicine; Visit Provider Nurse Practitioner Family | DX: G47.10 Hypersomnia, unspecified (principal); R06.83 Snoring | CPT/HCPCS: 99212 ==

== ENCOUNTER → 2022-12-02 15:36 | Outpatient (BNVA) | payer MEDICAID, SELFPAY | PROVIDERS: PCP Family Medicine; Visit Provider Obstetrics & Gynecology | DX: R10.2 Pelvic and perineal pain (principal) | CPT/HCPCS: 99212 ==

== ENCOUNTER 2023-03-03 11:26 | Outpatient (AMB) | payer MEDICAID, SELFPAY ==
--- NOTE | 2023-03-03 11:27 | A.OFFVIS_ITS ---
Intake Vital Signs 03/03/23 11:30 Height 5 ft 6 in Weight 206 lb 8 oz BMI 33.3 BP 128/66 Blood Pressure Location Lt brachial Intake Visit Reasons: 4m follow up sleep-Confirmed Intake Note: Pt states she is doing okay, sleep still inconsistent Allergies No Known Allergies Allergy (Verified 03/03/23 11:32) HPI HPI Comments History of Present Illness Details 36 y/o female patient presents for follo w up of sleep study. The home sleep study result was normal home sleep test, The AHI was less than 1/hr and oxygen franko was 92%. However, pt reports that she did not sleep well during the sleep study. She is having disrupted sleep, keeps falling asleep during daytime. She is a light sleeper. Pt also reports that she quit her job due to excessive daytime sleepiness. She has difficulty staying awake and keep falling asleep and being tired all day. Pt's last [place] sleepiness scale was 19. 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 Dysplasia of cervix, low grade (OLAYINKA 1) Migraine Surgical History History of surgery of uterus Hx of tubal ligation Family History Mother Fibromyalgia Father HTN (hypertension) Maternal Grandmother Uterine cancer Sister Uterine cancer Social History Alcohol intake: never Comment: medicated in pacu Patient Tobacco Use Status: Never used Tobacco Second Hand Smoke Exposure: No Gender identity: Female Female Reproductive History Menstrual Age of Menarche: 18 Review of Systems Const All systems reviewed & are unremarkable except as noted in HPI and below Physical Exam Vital Signs: Last Vital Signs BP 128/66 03/03/23 11:30 BMI result Body Mass Index 33.3 Const General: cooperative, healthy appearing and comfortable Chest Chest palpation & inspection: normal inspection of the chest and normal palpation of entire chest wall Breast/axilla inspection: normal inspection of the breasts and normal inspection of the axillae Breast/axilla palpation: normal palpation of the breasts, normal palpation of the axillae and no axillary lymphadenopathy Resp Effort & Inspection: normal respiratory effort Auscultation: clear to auscultation bilaterally Percussion: percussion normal Cardio Palpation: normal PMI Rate: regular rate Rhythm: regular rhythm Heart sounds: no murmurs and no rubs Peripheral pulses: Peripheral pulses 2+ throughout GI Inspection: Yes normal to inspection Palpation (GI): Soft to palpation, nontender, no guarding, not rigid and No hepatosplenomegaly present Percussion: Yes normal to percussion Auscultation: normal bowel sounds Rectal Exam - Female: deferred General: Yes bladder normal to palpation External Female Exam: No lesion Speculum Exam - Vagina: normal appearance of the vagina, normal palpation, normal vaginal discharge and not erythematous Speculum Exam - Cervix: normal appearance of the cervix and normal palpation Bimanual exam- vagina & uterus: normal bimanual exam, normal palpation, uterine size normal, bladder normal to palpation, consistency normal and normal palpation Bimanual Exam- Adnexa, other: normal adnexae, no masses and no tenderness Assessment & Plan Assessment & Plan (1) Excessive sleepiness: Comment: [place] sleepiness scale is 19 Code(s): G47.10 - Hypersomnia, unspecified (2) Snoring: Code(s): R06.83 - Snoring Plan Pt is advised to undergo MSLT study to assess for sleep apnea and narcolepsy. Will f/u with pt after study to discuss results and appropriate treatment options. Sleep hygiene education provided. Wt reduction advised. Pt to call with any worsening concerns or questions. Orders: Orders RT sleep testing - MSLT Today G47.10 - Hypersomnia, unspecified, R06.83 - Snoring Coding Level of Care Code Est Pt Level 3 (64455) Diagnoses Excessive sleepiness G47.10 Snoring R06.83
[2023-03-03 11:30] VITALS: BP 128/66; BMI 33.3
== END 2023-03-03 11:51 | disposition home or self-care (01) ==
PROVIDERS: PCP Family Medicine; Visit Provider Nurse Practitioner Family
DX: G47.10 Hypersomnia, unspecified (principal); R06.83 Snoring
CPT/HCPCS: 99213

== ENCOUNTER → 2023-03-03 11:26 | Outpatient (BNVA) | payer MEDICAID, SELFPAY | PROVIDERS: PCP Family Medicine; Visit Provider Nurse Practitioner Family | DX: G47.10 Hypersomnia, unspecified (principal); R06.83 Snoring | CPT/HCPCS: 99212 ==

== ENCOUNTER → 2023-05-13 20:30 | Outpatient (REF) | payer MEDICAID, SELFPAY | LOC: HO.SL 20:30 | PROVIDERS: PCP Family Medicine; Visit Provider Nurse Practitioner Family | DX: G47.10 Hypersomnia, unspecified (principal); R06.83 Snoring | CPT/HCPCS: 80307; 95805 ==

== ENCOUNTER 2023-05-14 15:40 | Outpatient (REF) | payer MEDICAID, SELFPAY ==
[2023-05-14 16:12] LABS: Amphetamine Screen Urine Not Detected (Not Detect); Barbiturates, Urine Not Detected (Not Detect); Benzodiazepines Screen Urine Not Detected (Not Detect); Cannabinoid Screen Urine Not Detected (Not Detect); Cocaine Screen Urine Not Detected (Not Detect); Fentanyl, urine Not Detected (Not Detect); Opiate Screen Urine Not Detected (Not Detect); Phencyclidine Screen Urine Not Detected (Not Detect)
== END 2023-05-14 15:41 | disposition home or self-care (01) ==
LOC: HO.LNP 15:40
PROVIDERS: Visit Provider Nurse Practitioner Family
DX: G47.10 Hypersomnia, unspecified (principal)
CPT/HCPCS: 80307

== ENCOUNTER 2023-06-10 12:45 | Outpatient (AMB) | payer MEDICAID, SELFPAY ==
--- NOTE | 2023-06-10 12:45 | MHC.OFFVIS ---
Vital Signs 06/10/23 12:47 Height 5 ft 6 in Weight 200 lb BMI 32.3 BP 134/72 Blood Pressure Location Rt brachial Position Sitting Respiration 16 Pulse 117 H Pulse Source Pulse Oximeter Pulse Oximetry (%) 98 Oxygen Delivery Method Room Air Intake Visit Reasons: 3 mnts Intake Note: Pt presents to the office for a 3 month follow up for daytime sleepiness. She is here to discuss her sleep study. Solution Make Up Operator Required: No Allergies No Known Allergies Allergy (Verified 06/10/23 12:46) Medication List - Last Reconciled 06/10/23 by Sharifa Duncan MD acetaminophen 500 mg PO Q6H PRN albuterol sulfate 90 mcg/actuation 1 inh inhalation QID ibuprofen 600 mg PO Q8H PRN loratadine (Claritin) 10 mg PO DAILY HPI Comments Details: 37 y/o female patient presents for follow up of sleep study. PSG was normal - 360 minutes of sleep was recorded MSLT was c/w narcolepsy she had 3 SOREMS and sleep latency was 0 She reports cataplexy - usually drops things and may ahve some knee buckling she also has sleep paralysis and hypopompic hallucinations Pt also reports that she quit her job due to excessive daytime sleepiness. She has difficulty staying awake and keep falling asleep and being tired all day. Pt's last [place] sleepiness scale was 19. 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 Dysplasia of cervix, low grade (OLAYINKA 1) Migraine Surgical History History of surgery of uterus Hx of tubal ligation Family History Mother Fibromyalgia Father HTN (hypertension) Maternal Grandmother Uterine cancer Sister Uterine cancer Social History Alcohol intake: never Comment: medicated in pacu Patient Tobacco Use Status: Never used Tobacco Second Hand Smoke Exposure: No Gender identity: Female Female Reproductive History Menstrual Age of Menarche: 18 Physical Exam Vital Signs: Last Vital Signs Pulse 117 H 06/10/23 12:47 Resp 16 06/10/23 12:47 BP 134/72 06/10/23 12:47 Pulse Ox 98 06/10/23 12:47 Oxygen Delivery Method Room Air 06/10/23 12:47 BMI result Body Mass Index 32.3 Const General: cooperative, healthy appearing, comfortable and no acute distress Nutritional Appearance: obese Orientation/consciousness: patient oriented x3 Neuro General: patient oriented x3, tone normal, moves all extremities and no focal motor deficits Cranial nerves: Yes Nystagmus not present and Yes Normal facial strength present Cognition (Neuro): normal cognition Gait exam (Neuro): Normal gait present Results Reviewed Results Reviewed: 05/14/23 MSLT- positive for Narcolepsy sleep latency 0 SOREM 04/18 with latency 10min PSG-normal 360minutes of sleep was recorded. 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 2 scheduled naps for 20 min per day Exercise 30minutes a day i will trial her on armodafanil 200mg qd will consider sunosi or wakix in future Medications: New armodafinil 200 mg PO QAM 30 tabs 5RF Coding Level of Care Code Est Pt Level 4 (69197) Diagnoses Narcolepsy and cataplexy G47.411 [place] Sleepiness Scale Questions Sitting and reading: high chance of dozing Watching TV: high chance of dozing Sitting inactive in a theater, movie etc.: high chance of dozing As a passenger in a car for an hour without break: high chance of dozing Lying down in the afternoon when circumstances permit: high chance of dozing Sitting and talking to someone: slight chance of dozing Sitting quietly after lunch without alcohol: high chance of dozing In a car, while stopped for a few minutes in the traffic: would never doze ESS < 10: normal, ESS > 12: pathologic: 19
[2023-06-10 12:47] VITALS: BP 134/72; PULSE 117; RESP 16; O2SAT 98; BMI 32.3
== END 2023-06-10 13:16 | disposition home or self-care (01) ==
PROVIDERS: PCP Family Medicine; Referring Provider Family Medicine; Visit Provider Psychiatry & Neurology Neurology
DX: G47.411 Narcolepsy with cataplexy (principal)
CPT/HCPCS: 99214

== ENCOUNTER → 2023-06-10 12:45 | Outpatient (BNVA) | payer MEDICAID, SELFPAY | PROVIDERS: PCP Family Medicine; Visit Provider Psychiatry & Neurology Neurology | DX: G47.411 Narcolepsy with cataplexy (principal) | CPT/HCPCS: 99212 ==

== ENCOUNTER 2023-07-13 11:06 | Outpatient (AMB) | payer MEDICAID, SELFPAY ==
--- NOTE | 2023-07-13 11:11 | MHC.OFFVIS ---
Vital Signs 07/13/23 11:21 Height 5 ft 6 in Weight 218 lb BMI 35.2 BP 120/74 Blood Pressure Location Lt brachial Position Sitting Pulse 90 Pulse Source Pulse Oximeter Pulse Oximetry (%) 98 Oxygen Delivery Method Room Air Intake Visit Reasons: follow up Intake Note: Patient presents for f/u. Stopped taking Armodafinil. Had bad side effects. Would like to try something else. Keno Terminal Operator Required: Yes Keno Terminal Operator Name: Verena Rachel Allergies No Known Allergies Allergy (Verified 07/13/23 11:20) HPI Comments Details: 37 y/o female patient presents for follow up of narcolepsy she was started on armodafanil 200mg but she is unable to tolerate she feels anxious, agitated with frontal ehadaches she feels jittery PSG was normal - 360 minutes of sleep was recorded MSLT was c/w narcolepsy she had 3 SOREMS and sleep latency was 0 She reports cataplexy - usually drops things and may have some knee buckling she also has sleep paralysis and hypopompic hallucinations Pt also reports that she quit her job due to excessive daytime sleepiness. She has difficulty staying awake and keep falling asleep and being tired all day. Pt's last [place] sleepiness scale was 19. 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 Dysplasia of cervix, low grade (OLAYINKA 1) Migraine Surgical History History of surgery of uterus Hx of tubal ligation Family History Mother Fibromyalgia Father HTN (hypertension) Maternal Grandmother Uterine cancer Sister Uterine cancer Social History Alcohol intake: never Comment: medicated in pacu Patient Tobacco Use Status: Never used Tobacco Second Hand Smoke Exposure: No Gender identity: Female Female Reproductive History Menstrual Age of Menarche: 18 Physical Exam Vital Signs: Last Vital Signs Pulse 90 07/13/23 11:21 BP 120/74 07/13/23 11:21 Pulse Ox 98 07/13/23 11:21 Oxygen Delivery Method Room Air 07/13/23 11:21 BMI result Body Mass Index 35.2 Const General: cooperative, healthy appearing, comfortable and no acute distress Nutritional Appearance: obese Orientation/consciousness: patient oriented x3 Neuro General: patient oriented x3, tone normal, moves all extremities and no focal motor deficits Cranial nerves: Yes Nystagmus not present and Yes Normal facial strength present Cognition (Neuro): normal cognition Gait exam (Neuro): Normal gait present 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 Category: Medical Plan stop armodafanil Trial patient on wakix Trial patient on Xywav for cataplexy 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
[2023-07-13 11:21] VITALS: BP 120/74; PULSE 90; O2SAT 98; BMI 35.2
== END 2023-07-13 11:33 | disposition home or self-care (01) ==
PROVIDERS: PCP Family Medicine; Referring Provider Family Medicine; Visit Provider Psychiatry & Neurology Neurology
DX: G47.411 Narcolepsy with cataplexy (principal)
CPT/HCPCS: 99214

== ENCOUNTER → 2023-07-13 11:06 | Outpatient (BNVA) | payer MEDICAID, SELFPAY | PROVIDERS: PCP Family Medicine; Visit Provider Psychiatry & Neurology Neurology | DX: G47.411 Narcolepsy with cataplexy (principal) | CPT/HCPCS: 99212 ==

== ENCOUNTER 2023-10-06 12:29 | Outpatient (REF) | payer MEDICAID, SELFPAY ==
[2023-10-06 13:55] LABS: Cholesterol 168 mg/dL (<200); HDL Cholesterol 36 mg/dL (>40); LDL Cholesterol Calculated 114 mg/dL (<100); Triglycerides 90 mg/dL (<150)
== END 2023-10-06 12:30 | disposition home or self-care (01) ==
LOC: HO.HHCL 12:29
PROVIDERS: Visit Provider Family Medicine
DX: E78.5 Hyperlipidemia, unspecified (principal)
CPT/HCPCS: 36415; 80061

== ENCOUNTER 2024-01-24 10:33 | Outpatient (AMB) | payer MEDICAID, SELFPAY ==
--- NOTE | 2024-01-24 10:41 | MHC.OFFVIS ---
Vital Signs 01/24/24 10:42 Height 5 ft 6 in Weight 214 lb BMI 34.5 Intake Visit Reasons: follow up Intake Note: Patient presents for follow up Allergies No Known Allergies Allergy (Verified 01/24/24 10:43) Medication List - Last Reconciled 01/24/24 by Sharifa Duncan MD acetaminophen 500 mg PO Q6H PRN albuterol sulfate 90 mcg/actuation 1 inh inhalation QID dextroamphetamine-amphetamine 5 mg ER (Adderall XR) 5 mg PO QAM 30 days ibuprofen 600 mg PO Q8H PRN loratadine (Claritin) 10 mg PO DAILY HPI Comments Details: 38 y/o female patient presents for follow up of narcolepsy. she is on adderall XR 5mg qam and feels good. she still take 2 naps a day - 10am -40minutes , 4pm -40min. 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 she is starting next week. she goes to bed at 11pm - wakes up 6.30am . she sleeps good she does not work and this schedule works for her. 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 Dysplasia of cervix, low grade (OLAYINKA 1) Migraine Surgical History History of surgery of uterus Hx of tubal ligation Family History Mother Fibromyalgia Father HTN (hypertension) Maternal Grandmother Uterine cancer Sister Uterine cancer Social History Alcohol intake: never Comment: medicated in pacu Patient Tobacco Use Status: Never used Tobacco Second Hand Smoke Exposure: No Gender identity: Female Female Reproductive History Menstrual Age of Menarche: 18 Physical Exam Vital Signs: BMI result Body Mass Index 34.5 Const General: cooperative, healthy appearing, comfortable and no acute distress Nutritional Appearance: obese Orientation/consciousness: patient oriented x3 Neuro General: patient oriented x3, tone normal, moves all extremities and no focal motor deficits Cranial nerves: Yes Nystagmus not present and Yes Normal facial strength present Cognition (Neuro): normal cognition Gait exam (Neuro): Normal gait present 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 Category: Medical Plan she is doing well on adderall XR 5 mg qam and 2 scheudled naps at 10am and 4pm . she is planning to start working next week. Discussed about avoiding long distance driving she drives once a day for 20 minutes in the morning Exercise 30minutes a day Medications: Discontinued solriamfetol (Sunosi) Discontinued Reason: Patient no longer taking 75 mg PO DAILY 30 tabs 0RF sodium oxybate (Xyrem) Discontinued Reason: Patient no longer taking 2.25 grams (4.5 mL) PO BID 180 mL 0RF narcolepsy Coding Level of Care Code Est Pt Level 4 (26212) Complex EM visit Add On G2211 Diagnoses Narcolepsy and cataplexy G47.411 [place] Sleepiness Scale Questions Sitting and reading: slight chance of dozing Watching TV: slight chance of dozing Sitting inactive in a theater, movie etc.: would never doze As a passenger in a car for an hour without break: moderate chance of dozing Lying down in the afternoon when circumstances permit: moderate chance of dozing Sitting and talking to someone: would never doze Sitting quietly after lunch without alcohol: moderate chance of dozing In a car, while stopped for a few minutes in the traffic: would never doze ESS < 10: normal, ESS > 12: pathologic: 8
[2024-01-24 10:42] VITALS: BMI 34.5
== END 2024-01-24 11:01 | disposition home or self-care (01) ==
PROVIDERS: PCP Family Medicine; Visit Provider Psychiatry & Neurology Neurology
DX: G47.411 Narcolepsy with cataplexy (principal)
CPT/HCPCS: 99214

== ENCOUNTER → 2024-01-24 10:33 | Outpatient (BNVA) | payer MEDICAID, SELFPAY | PROVIDERS: PCP Family Medicine; Visit Provider Psychiatry & Neurology Neurology | DX: G47.411 Narcolepsy with cataplexy (principal) | CPT/HCPCS: 99212 ==

== ENCOUNTER 2024-03-29 10:35 | Outpatient (AMB) | payer MEDICAID, SELFPAY ==
--- NOTE | 2024-03-29 10:37 | MHC.OFFVIS ---
Vital Signs 03/29/24 10:46 Height 5 ft 6 in Weight 212 lb BMI 34.2 BP 118/68 Intake Visit Reasons: annual/DO NOT RS X5 Golf Player Assistant Required: No Golf Player Assistant Services: Golf Player Assistant Present Information Interpreted: clinical only Vehicle Sales Professional: Vehicle Sales Professional Present Allergies No Known Allergies Allergy (Verified 03/29/24 10:47) Medication List - Last Reconciled 03/29/24 by Tiffany Smith CNM acetaminophen 500 mg PO Q6H PRN albuterol sulfate 90 mcg/actuation 1 inh inhalation QID dextroamphetamine-amphetamine 5 mg ER (Adderall XR) 5 mg PO QAM 30 days ibuprofen 600 mg PO Q8H PRN loratadine (Claritin) 10 mg PO DAILY Is last menstrual period known: Yes Last menstrual period: 03/06/24 HPI HPI annual/DO NOT RS X5: Details: For cork tipper annual exam. She had 2 leaps in for OLAYINKA 3 (1st 1 had positive margins 2nd 1 had negative margins) her Pap smear in 2021 and 2022 have both been negative.. She has a history of a tubal ligation her oldest child is 14. She feels she is doing well. She is working on losing weight by trying to eat good she takes fiber in her diet to keep herself regular. Her primary doctor is Dr. Delilah Bridges. She sees her here at the [facility] she has a another appointment coming up in May. She was on medication for ADHD. But she felt she was not really needing it so she has stopped taking it the last few months and she will discuss this with her primary when she sees her. 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 Dysplasia of cervix, low grade (OLAYINKA 1) Migraine Surgical History History of surgery of uterus Hx of tubal ligation Family History Mother Fibromyalgia Father HTN (hypertension) Maternal Grandmother Uterine cancer Sister Uterine cancer Social History Alcohol intake: never Comment: medicated in pacu Patient Tobacco Use Status: Never used Tobacco Second Hand Smoke Exposure: No Gender identity: Female Female Reproductive History Menstrual Age of Menarche: 18 Duration of menses: 3-5 days Date of last menstrual period: 03/06/24 control method: permanent sterilization Total pregnancies: 3 Full term: 3 Date of last pap smear: 09/15/22 (negative,2021,negative) History of abnormal pap smear: Yes (2020 neg pap,hpv+,2019 ASCUS,hpv+) Physical Exam Const General: healthy appearing, comfortable, no acute distress, well developed and alert Nutritional Appearance: average body habitus Orientation/consciousness: patient oriented x3 Limitations: no limitations HEENT Head: Yes normocephalic Neck Neck: Yes normal visual inspection Chest Chest palpation & inspection: normal inspection of the chest Breast/axilla inspection: normal inspection of the breasts and normal inspection of the axillae Breast/axilla palpation: normal palpation of the breasts and normal palpation of the axillae Resp Effort & Inspection: normal respiratory effort GI Inspection: Yes normal to inspection, No Abdominal wall edema and No distended Palpation (GI): Soft to palpation and nontender Other: External exam within normal limits vagina is pink and moist with scant clear/white discharge cervix multiparous status post LEEP with scarring. Cervix thick closed mobile nontender uterus small midposition mobile nontender adnexa not enlarged and nontender good tone with Kegel. General: Yes bladder normal to palpation External Female Exam: normal external appearance and normal appearance of the urethra Speculum Exam - Vagina: normal appearance of the vagina, normal palpation and normal vaginal discharge Speculum Exam - Cervix: normal appearance of the cervix, normal palpation and nontender Bimanual exam- vagina & uterus: normal bimanual exam, normal palpation, uterine size normal, bladder normal to palpation, consistency normal, normal palpation, uterine mobility normal, uterine shape normal, No Cervical tenderness present, non-tender and no cervical motion tenderness Bimanual Exam- Adnexa, other: normal adnexae, no masses, normal and No adnexal tenderness Neuro General: patient oriented x3 Results Reviewed Results Reviewed: Name: Enoch Nolasco Age/Sex: 36/F Attending: Lito Rodas MD : 1985 Submitted by: Lito Rodas MD Copies to: Delilah Bridges MD MR #: [id number] Status: DEP REF Collected: 09/10/22 Location: [facility] Received: 09/15/22 Interpretation Satisfactory for evaluation. Negative for intraepithelial lesion or malignancy. HPV mRNA E6/E7: NOT DETECTED This assay detects E6/E7 viral messenger RNA (mRNA) from 14 high-risk HPV types (16, 18, 31, 33, 35, 39, 45, 51, 52, 56, 58, 59, 66, 68) HPV testing performed by [facility], [place], [place]. See reference laboratory pion of the EMR for entire report. Clinical Information LMP: 09/03/22 Previous PAP test: 09/06/21, OLAYINKA III Material Received ThinPrep-Cervical Copies To Delilah Bridges MD [address] [place] [address] [id number] Lito Rodas MD [address] [place] [id number] Electronically Signed By: ARNOLD Laughlin (ASCP) 10/07/22 0924 The Pap Test is a screening procedure with the inherent possibility of both false negative and false positive results. Results should be interpreted in the context of historic and current clinical findings. Reliability of the Pap Test is enhanced by performing the test on a regular repetitive basis. Patient: Enoch Nolasco Age/Sex: 36/F MR#: [id number] Page 1 of 1 Assessment & Plan Assessment & Plan (1) OLAYINKA III (cervical intraepithelial neoplasia grade III) with severe dysplasia: Comment: 01/04 mcg negative/HPV positive, colpo biopsy negative Five hundred twenty-one Pap smear negative HPV positive, colpo biopsy OLAYINKA 2, 09/04, & 8/21,-LEEP cone x2 negative margins, endocervix and post cone ECC 09/05 co test testing= neg w neg hpv,09/15/22 neg pap w neg HPV Code(s): D06.9 - Carcinoma in situ of cervix, unspecified Category: Medical (2) Well woman exam: Comment: OLAYINKA 3 in 2020 s/p LEEP cone x2 with neg margins Code(s): Z01.419 - Encounter for gynecological examination (general) (routine) without abnormal findings Category: Medical Plan -----Discussed in this visit the following: healthy balanced diet, regular and consistent exercise, getting recommended health screens, doing the best she can for her particular health concerns, kegel exercises, pap smear screening and followup recommendations, mammography screening and SBE, normal changes in cycles in her life stage--- . Discussed the scarring to her cervix because of the LEEP and that we will see how this Pap is. She is happy that she has a tubes tied. Discussed her large pendulous breasts. She has had 3 appointments to discuss getting breast reduction and something always happens and the appointments have to be canceled. I strongly suggested she work on losing weight 1st before she considers breast reduction surgery. Additionally she said that it was our office at canceled her appointments with Dr. Rodas 5 times. She will be seeing her primary care provider in May Timeframe/Date Comment rtc for annual 1 yr Coding Level of Care Code Est Pt Prev Care 18-39y(84166) Diagnoses OLAYINKA III (cervical intraepithelial neoplasia grade III) with severe dysplasia D06.9 Well woman exam Z01.419
[2024-03-29 10:46] VITALS: BP 118/68; BMI 34.2
--- OUTSIDE RECORDS SUMMARY | 2024-03-29 12:20 | XMS_ITS | Encounter Summary ---
Author Organization [employer] [facility] Address [address] [place] [address] Care Team Providers Care Airport Utility Worker Name Role Phone Delilah Bridges MD Primary Care Provider [phone]- [phone] Sharifa Duncan MD Unavailable Reason for Visit * Reason Onset Date Comments Nurse Triage 06/08/2023 Encounter Details Date Type Department Care Team ([facility] st Contact Info) Description 06/08/2023 Telephone [facility] MEDICINE [address] [place], [place] [phone] Delilah Bridges MD [address] [place], [place] [phone] Nurse Triage Social History Tobacco Use Types Packs/Day Years Used Date Smoking Tobacco: Never Passive Smoke Exposure: Never Smokeless Tobacco: Never Alcohol Use Standard Drinks/Week Comments Never 0 (1 standard drink = 0.6 oz pur e alcohol) Depression Answer Date Recorded Patient Health Questionnaire-9 Score 3 04/29/2022 Housing Stability Answer Date Recorded What is your housing situation today? I have sarahlashae carrillo 12/02/[address] you li ve. Do you have problems with any of the following? None of the above 12/02/2022 Food Insecurity Answer Date Recorded Within the past 12 months, y ou worried that your food would run out before you got money to buy more: Never True 12/02/2022 Within the past 12 months,th e food you bought just didn't last and you didn't have enough money to get more: Never True Transportation Answer Date Recorded In the past 12 months, has l ack of transportation kept you from medical appts, meetings, work or from getting things needed for daily living? No 12/02/2022 Utilities Answer Date Recorded In the past 12 months, has t he electric, gas, oil or water company threatened to shut off services in your home? No 12/02/2022 Depression Answer Date Recorded Patient Health Questionnaire-2 Score 2 04/29/2022 Comments Unknown Sex and Gender Information Value Date Recorded Sex Assigned at Female 12/15/2021 10:19 AM EDT Legal Sex Female 10:19 AM EDT Gender Identity Female 12/15/2021 10:19 AM EDT Sexual Orientation Straight 12/15/2021 10 :19 AM EDT documented as of this encounter Miscellaneous Notes * Telephone Encounter - Sharon Dacosta RN - 06/08/2023 4:28 PM EDT Triage call with [facility] ID [id number] Pt reports migraine which is of chronic nature. Pt reports is taking tylenol 500mg daily and is continuing to have this headache. Pt requests apt with PCP only. Pt reports drinking adequate amount ofliquids. Apt with PCP 06/30/23. Pt agrees with disposition and is already implementing home care. Insurance is verified as active. Protocol Used: Headache (Adult) Protocol-Based Disposition: See in Office or Video Visit within 2 Weeks Video visit not offered Positive Triage Question: * Headache is a chronic symptom (recurrent or ongoing AND lasting > 4 weeks) * All higher-acuity triage questions were negative Care Advice Discussed: * Reassurance and Education - Migraine Headache * Pain Medicines * Rest for Headache * Cold Pack for Headache * Stretching * Reasons To Call Back - Severe headache persists over 2 hours after pain medicine - Headache lasts over 24 hours despite using a pain medicine - You become worse * Telephone Encounter - Gail Clancy - 06/08/2023 4:05 PM EDT Symptom: Headache Outcome: Schedule an urgent appointment (within 4 hours) or talk to a nurse or provider soon Reason: Getting worse, requesting to be referred to a specialist. The caller accepted this outcome Please contact pt at [phone] documented in this encounter Plan of Treatment Upcoming Encounters Date Type Department Care Team (Late st Contact Info) Description 04/20/2024 9:00 AM EST Office Visit [facility] CHC ADULT DENTAL [address] [place] [address] Juanito Emily, DMD [address] [place], [place] [phone] 05/17/2024 9:30 AM EDT Office Visit [facility] MEDICINE [address] [place] [address] Delilah Bridges MD [address] [place] [phone] documented as of this encounter Visit Diagnoses Not on filedocumented in this encounter Additional Health Concerns Assessment Noted Time PHQ-9 Depression Total Score: 3 04/30/19 23 11:45 AM EDT documented as of this encounter Care Teams Airport Utility Worker Relationship Specialty Start Date End Date Delilah Bridges MD [address] [place] [phone] PCP - General Family Medicine 02/15/18 Sharifa Duncan MD [address] [address] Sleep Medicine 01/24/24 documented as of this encounter
--- OUTSIDE RECORDS SUMMARY | 2024-03-29 12:21 | XMS_ITS | Encounter Summary ---
Author Organization [employer] [facility] Address [address] [facility] [address] [place] [address] Care Team Providers Care Regional Construction Manager Name Role Phone Delilah Bridges MD Primary Care Provider +1- [phone] Sharifa Duncan MD Unavailable Reason for Visit * Reason Onset Date Comments Medication Question 03/15/2024 Encounter Details Date Type Department Care Team (Late st Contact Info) Description 03/15/2024 Telephone [facility] MEDICINE [address] [place], [place] [phone] Marylin Medina, RN [address] [place], [place] [phone] Medication Question Social History Tobacco Use Types Packs/Day Years Used Date Smoking Tobacco: Never Passive Smoke Exposure: Never Smokeless Tobacco: Never Alcohol Use Standard Drinks/Week Comments Never 0 (1 standard drink = 0.6 oz pur e alcohol) Depression Answer Date Recorded Patient Health Questionnaire-9 Score 6 06/30/2023 Patient Health Questionnaire-9 Score 6 06/30/2023 Last PHQ-9: Questionnaire Data Not on file 0 06/30/2023 Housing Stability Answer Date Recorded What is your housing situation today? I have sarah carrillo 06/30/[address] you li ve. Do you have problems with any of the following? None of the above 06/30/2023 Food Insecurity Answer Date Recorded Within the past 12 months, y ou worried that your food would run out before you got money to buy more: Never True 06/30/2023 Within the past 12 months,th e food you bought just didn't last and you didn't have enough money to get more: Never True Transportation Answer Date Recorded In the past 12 months, has l ack of transportation kept you from medical appts, meetings, work or from getting things needed for daily living? No 06/30/2023 Utilities Answer Date Recorded In the past 12 months, has t he electric, gas, oil or water company threatened to shut off services in your home? No 06/30/2023 Depression Answer Date Recorded Patient Health Questionnaire-2 Score 2 06/30/2023 Internet Access Answer Date Recorded Internet Access Q1 Yes 10/18/2023 Internet Access Q2 Not on file 10/18/2023 Comments Unknown Sex and Gender Information Value Date Recorded Sex Assigned at Female 12/15/2021 10:19 AM EDT Legal Sex Female 10:19 AM EDT Gender Identity Female 12/15/2021 10:19 AM EDT Sexual Orientation Straight 12/15/2021 10 :19 AM EDT documented as of this encounter Miscellaneous Notes * Telephone Encounter - Marylin Medina RN - 03/15/2024 12:54 PM EST Pt scheduled for toradol injection with nurses today but Rxd meloxicam yesterday. Toradol and meloxicam together are contraindicated. Needs to have not taken meloxicam x24hrs before I will give her toradol injection. Telephone call placed to pt who reports didn't know she had an appt for injection.Is taking the meloxicam and flexeril which is helping. Declines appt for toradol at this time. Advised to call as needed. documented in this encounter Plan of Treatment Upcoming Encounters Date Type Department Care Team (Late st Contact Info) Description 04/20/2024 9:00 AM EST Office Visit [facility] CHC ADULT DENTAL [address] [place] [address] Emily Solomon DMD [address] [place] [address] 05/17/2024 9:30 AM EDT Office Visit [facility] MEDICINE [address] [place] [address] Delilah Bridges MD [address] [place] [address] documented as of this encounter Visit Diagnoses Not on filedocumented in this encounter Additional Health Concerns Assessment Noted Time PHQ-9 Depression Total Score: 6 06/30/19 24 11:22 AM EDT documented as of this encounter Care Teams Regional Construction Manager Relationship Specialty Start Date End Date Delilah Bridges MD [address] [place] [address] PCP - General Family Medicine 02/15/18 Sharifa Duncan MD 100 [facility] [address] [place] [address] Sleep Medicine 01/24/24 documented as of this encounter
--- OUTSIDE RECORDS SUMMARY | 2024-03-29 12:21 | XMS_ITS | Encounter Summary ---
Author Organization [employer] [facility] Address [address] [address] [place] [address] Care Team Providers Care Compressed Gas Tester Name Role Phone Delilah Bridges MD Primary Care Provider +1- [phone] Sharifa Duncan MD Unavailable Reason for Visit * Reason Onset Date Comments Med Refill 09/27/2023 Encounter Details Date Type Department Care Team (Late st Contact Info) Description 09/27/2023 Refill [facility] ADULT DENTAL [address] [place] [address] Eliezer Urbina, DMD [address] [place] [address] Dental caries Social History Tobacco Use Types Packs/Day Years [...] Recorded Patient Health Questionnaire-2 Score 2 06/30/2023 Comments Unknown Sex and Gender Information Value Date Recorded Sex Assigned at Female 12/15/2021 10:19 AM EDT Legal Sex Female 10:19 AM EDT Gender Identity Female 12/15/2021 10:19 AM EDT Sexual Orientation Straight 12/15/2021 10 :19 AM EDT documented as of this encounter Miscellaneous Notes * Telephone Encounter - Sukhjinder Ozuna DMD - 09/27/2023 10:25 AM EDT Approving, but needs appt for additional refills. documented in this encounter Plan of Treatment Upcoming Encounters Date Type Department Care Team (Late st Contact Info) Description 04/20/2024 9:00 AM EST Office Visit [facility] CH[facility] ADULT DENTAL [address] [place] [address] Emily Solomon DMD [address] [place] [address] 05/17/2024 9:30 AM EDT Office Visit [facility] MEDICINE [address] [place] [address] Delilah Bridges MD [address] [place] [address] documented as of this encounter Visit Diagnoses Diagnosis Dental caries Unspecified dental caries documented in this encounter Additional Health Concerns Assessment Noted Time PHQ-9 Depression Total Score: 6 06/30/19 24 11:22 AM EDT documented as of this encounter Care Teams Compressed Gas Tester Relationship Specialty Start Date End Date Delilah Bridges MD [address] [place] [phone] PCP - General Family Medicine 02/15/18 Sharifa Duncan MD [address] [address] Sleep Medicine 01/24/24 documented as of this encounter
--- OUTSIDE RECORDS SUMMARY | 2024-03-29 12:21 | XMS_ITS | Encounter Summary ---
Author Organization [facility] Address [address] [place] [address] Care Team Providers Care Can Feeder Name Role Phone Delilah Bridges MD Primary Care Provider [phone] Sharifa Duncan MD Unavailable Reason for Visit * Reason Comments Back Pain Encounter Details Date Type Department Care Team (Late st Contact Info) Description 03/14/2024 3:20 PM EST Office Visit [facility] [address] [place] [address] [phone] Marbella Alcaraz MD [address] [place], [place] [phone] Spasm of thoracic back muscle (Primary Dx) Social History Tobacco Use Types Packs/Day Years [...] AM EDT documented as of this encounter Last Filed Vital Signs Vital Sign Reading Time Taken Comments Blood Pressure 128/84 03/14/2024 3:10 PM EST Pulse 96 03/14/2024 3:10 PM EST Temperature 36.6 ??C (97.9 ??F) 03/14/2024 3:10 PM ES T Respiratory Rate 17 03/14/2024 3:10 PM EST Oxygen Saturation 99% 03/14/2024 3:10 PM EST Inhaled Oxygen Concentration - - Weight 97.3 kg (214 lb 6.4 oz) 03/14/2024 3:10 P M EST Height - - Body Mass Index 34.61 12/21/2023 3:29 PM EST documented in this encounter Progress Notes * Marbella Alcaraz MD - 03/14/2024 3:20 PM EST SUBJECTIVE: Enoch Nolasco is a 38 y.o. year old female who presents for Walk In Center/LBP . Denies recent illness, injury, or hospitalization. Acute Concerns: Patient here for evaluation of severe back pain that limit movement for the past 2 days, she has been taking Tylenol and naproxen without improvement of symptoms. She denies having any fever, dysuriavaginal discharge nausea, no recent accidents or falls. Her last menstrual period was 03/11/24. Backpain is not radiated at this time, denies leg or arm numbness or tingling. Social History Social History Narrative Not on file Patient Active Problem List Diagnosis HGSIL on cytologic smear of cervix Chronic sacroiliac pain Facet syndrome, lumbar Iron deficiency Migraine without aura Myalgia Vitamin D deficiency Seasonal allergies Asthma Major depressive disorder with current active episode Preventative health care Narcolepsy with cataplexy Dyslipidemia Pain, dental Physical exam Blepharitis of left lower eyelid Spasm of thoracic back muscle No family history on file. Review of Systems Constitutional: Negative for chills, fatigue and fever. HENT: Negative for congestion, ear pain, nosebleeds, rhinorrhea, sinus pressure, sore throat and trouble swallowing. Eyes: Negative for pain and discharge. Respiratory: Negative for cough, chest tightness and shortness of breath. Cardiovascular: Negative for chest pain, palpitations and leg swelling. Gastrointestinal: Negative for abdominal pain, blood in stool, constipation, diarrhea and nausea. Endocrine: Negative for polydipsia and polyuria. Genitourinary: Negative for dysuria, frequency, genital sores, pelvic pain and vaginal discharge. Musculoskeletal: Positive for back pain. Negative for neck pain. Skin: Negative for rash. Allergic/Immunologic: Negative for environmental allergies. Neurological: Negative for dizziness, seizures, weakness, light-headedness and headaches. Hematological: Negative for adenopathy. Psychiatric/Behavioral: Negative for agitation, behavioral problems, self-injury and suicidal ideas. OBJECTIVE: Vitals: 03/14/24 1510 BP: 128/84 Pulse: 96 Resp: 17 Temp: 97.9 ??F (36.6 ??C) SpO2: 99% Physical Exam Constitutional: Appearance: Normal appearance. HENT: Right Ear: Tympanic membrane and ear canal normal. Left Ear: Tympanic membrane and ear canal normal. Mouth/Throat: Mouth: Mucous membranes are moist. Pharynx: No oropharyngeal exudate or posterior oropharyngeal erythema. Eyes: Pupils: Pupils are equal, round, and reactive to light. Cardiovascular: Rate and Rhythm: Normal rate and regular rhythm. Heart sounds: No murmur heard. Pulmonary: Breath sounds: Normal breath sounds. No wheezing. Abdominal: General: Bowel sounds are normal. Palpations: Abdomen is soft. Tenderness: There is no abdominal tenderness. Musculoskeletal: Cervical back: Normal range of motion. No tenderness. Thoracic back: Spasms and tenderness present. Decreased range of motion. Lumbar back: Spasms and tenderness present. Decreased range of motion. Skin: General: Skin is warm. Neurological: General: No focal deficit present. Mental Status: She is alert and oriented to person, place, and time. Psychiatric: Mood and Affect: Mood normal. Office Visit on 03/14/2024 Component Date Value Ref Range Status Color, UA 03/14/2024 Yellow Final Clarity, UA 03/14/2024 Clear Final Glucose, UA 03/14/2024 Negative Final Bilirubin, UA 03/14/2024 Negative Final Ketones, UA 03/14/2024 Negative Final Spec Grav, UA 03/14/2024 1.025 Final Blood, UA 03/14/2024 Negative Negative, None Detected Final pH, UA 03/14/2024 7.0 Final Protein, UA 03/14/2024 Negative Final Urobilinogen, UA 03/14/2024 0.2 Final Leukocytes, UA 03/14/2024 Negative Negative, Rare, Trace Final Nitrite, UA 03/14/2024 Negative Negative, None Detected Final Preg Test, Ur 03/14/2024 Negative Negative, Indeterminate, None Detected, Invalid, Specimen unsatisfactory for evaluation, Weakly Positive Final Problem List Items Addressed This Visit Spasm of thoracic back muscle - Primary Advised to use heat to affected area, I gave her information regarding stretching exercises for herback. Take meloxicam 15 mg daily for 5 days then as needed. She can also take Tylenol every 8 hours as needed pain and Flexeril nightly for 5 days. If symptoms are more severe by tomorrow, she can come for a nurse visit for a Toradol injection. Follow Up: Current Outpatient Medications on File Prior to Visit Medication Sig Dispense Refill Adderall XR 5 MG 24 hr capsule TAKE 1 CAPSULE ORALLY EVERY MORNING FOR 30 DAYS armodafinil (Nuvigil) 200 MG tablet Take 200 mg by mouth in the morning. FLUoxetine (PROzac) 20 MG capsule TAKE 1 CAPSULE BY MOUTH EVERY DAY 90 capsule 3 loratadine (Claritin) 10 MG tablet Take 1 tablet (10 mg) by mouth Once per day. 90 tablet 3 ucgnudoc-pfojqknum-gucKOJMPjkmkh 0.1 % ointment Apply to right lower eyelid twice a day. 3.5 g 1 ProAir HFA 108 (90 Base) MCG/ACT inhaler INHALE 2 PUFFS BY MOUTH EVERY 4 - 6 HOURS NEEDED FOR COUGH, WHEEZE, OR FOR SHORTNESS OF BREATH 18 g 1 Sodium Fluoride 5000 Sensitive 1.1-5 % gel PLEASE SEE ATTACHED FOR DETAILED DIRECTIONS [DISCONTINUED] acetaminophen (Tylenol) 500 MG tablet Take 1 tablet (500 mg) by mouth every 6 (six) hours if needed for mild pain for up to 20 doses. 20 tablet 0 [DISCONTINUED] Sod Fluoride-Potassium Nitrate 1.1-5 % paste [place] teeth for 2 minutes, morning and night. Spit, do not rinse. Do not eat or drink anything for 30 minutes following brushing. (Patient not taking: Reported on 01/31/2024) 112 g 0 No current facility-administered medications on file prior to visit. documented in this encounter Miscellaneous Notes * Patient Education Note - Marbella Alcaraz MD - 03/14/2024 8:30 PM EST Images from the original note were not included. Patient Education Table of Contents Back Exercises To view videos and all your education online visit, [email or web address] or scan this QR code with your smartphone. Access to this content will in one year. Back Exercises The following exercises strengthen the muscles that help to support the trunk (torso) and back. They also help to keep the lower back flexible. Doing these exercises can help to prevent or lessen existing low back pain. If you have back pain or discomfort, try doing these exercises 2?3 times each day or as told by your health care provider. As your pain improves, do them once each day, but increase the number of times that you repeat the steps for each exercise (do more repetitions). To prevent the recurrence of back pain, continue to do these exercises once each day or as told by your health care provider. Do exercises exactly as told by your health care provider and adjust them as directed. It is normalto feel mild stretching, pulling, tightness, or discomfort as you do these exercises, but you should stop right away if you feel sudden pain or your pain gets worse. Exercises Single knee to chest Repeat these steps 3?5 times for each le. Lie on your back on a firm bed or the floor with your legs extended. Bring one knee to your chest. Your other leg should stay extended and in contact with the floor. Hold your knee in place by grabbing your knee or thigh with both hands and hold. Pull on your knee until you feel a gentle stretch in your lower back or buttocks. Hold the stretch for 10?30 seconds. Slowly release and straighten your leg. Pelvic tilt Repeat these steps 5?10 times: 1. Lie on your back on a firm bed or the floor with your legs extended. Bend your knees so they are pointing toward the ceiling and your feet are flat on the floor. Tighten your lower abdominal muscles to press your lower back against the floor. This motion will tilt your pelvis so your tailbone points up toward the ceiling instead of pointing to your feet or the floor. With gentle tension and even breathing, hold this position for 5?10 seconds. Cat-cow Repeat these steps until your lower back becomes more flexible: 1. Get into a qcanh-xxg-xnlde position on a firm bed or the floor. Keep your hands under your shoulders, and keep your knees under your hips. You may place padding under your knees for comfort. Let your head hang down toward your chest. Contract your abdominal muscles and point your tailbone toward the floor so your lower back becomes rounded like the back of a cat. Hold this position for 5 seconds. Slowly lift your head, let your abdominal muscles relax, and point your tailbone up toward the ceiling so your back forms a sagging arch like the back of a cow. Hold this position for 5 seconds. Press-ups Repeat these steps 5?10 times: 1. Lie on your abdomen (face-down) on a firm bed or the floor. Place your palms near your head, about shoulder-width apart. Keeping your back as relaxed as possible and keeping your hips on the floor, slowly straighten yourarms to raise the top half of your body and lift your shoulders. Do not use your back muscles to raise your upper torso. You may adjust the placement of your hands to make yourself more comfortable. Hold this position for 5 seconds while you keep your back relaxed. Slowly return to lying flat on the floor. Bridges Repeat these steps 10 times: 1. Lie on your back on a firm bed or the floor. Bend your knees so they are pointing toward the ceiling and your feet are flat on the floor. Your arms should be flat at your sides, next to your body. Tighten your buttocks muscles and lift your buttocks off the floor until your waist is at almost the same height as your knees. You should feel the muscles working in your buttocks and the back of your thighs. If you do not feel these muscles, slide your feet 1?2 inches (2.5?5 cm) farther away fromyour buttocks. Hold this position for 3?5 seconds. Slowly lower your hips to the starting position, and allow your buttocks muscles to relax completely. If this exercise is too easy, try doing it with your arms crossed over your chest. Abdominal crunches Repeat these steps 5?10 times: 1. Lie on your back on a firm bed or the floor with your legs extended. Bend your knees so they are pointing toward the ceiling and your feet are flat on the floor. Cross your arms over your chest. Tip your chin slightly toward your chest without bending your neck. Tighten your abdominal muscles and slowly raise your torso high enough to lift your shoulder bladesa tiny bit off the floor. Avoid raising your torso higher than that because it can put too much stress on your lower back and does not help to strengthen your abdominal muscles. Slowly return to your starting position. Back lifts Repeat these steps 5?10 times: 1. Lie on your abdomen (face-down) with your arms at your sides, and rest your forehead on the floor. Tighten the muscles in your legs and your buttocks. Slowly lift your chest off the floor while you keep your hips pressed to the floor. Keep the back of your head in line with the curve in your back. Your eyes should be looking at the floor. Hold this position for 3?5 seconds. Slowly return to your starting position. Contact a health care provider if: Your back pain or discomfort gets much worse when you do an exercise. Your worsening back pain or discomfort does not lessen within 2 hours after you exercise. If you have any of these problems, stop doing these exercises right away. Do not do them again unless your health care provider says that you can. Get help right away if: You develop sudden, severe back pain. If this happens, stop doing the exercises right away. Do not do them again unless your health care provider says that you can. This information is not intended to replace advice given to you by your health care provider. Make sure you discuss any questions you have with your health care provider. Document Released: 2005-03-11 Document Updated: 2023-03-07 Document Reviewed: 2021-04-16 [employer] Patient Education ? 2023 [employer] * Patient Education Note - Marbella Alcaraz MD - 03/14/2024 8:30 PM EST Images from the original note were not included. Patient Education Table of Contents Back Exercises To view videos and all your education online visit, [email or web address] or scan this QR code with your smartphone. Access to this content will in one year. Back Exercises The following exercises strengthen the muscles that help to support the trunk (torso) and back. They also help to keep the lower back flexible. Doing these exercises can help to prevent or lessen existing low back pain. If you have back pain or discomfort, try doing these exercises 2?3 times each day or as told by your health care provider. As your pain improves, do them once each day, but increase the number of times that you repeat the steps for each exercise (do more repetitions). To prevent the recurrence of back pain, continue to do these exercises once each day or as told by your health care provider. Do exercises exactly as told by your health care provider and adjust them as directed. It is normalto feel mild stretching, pulling, tightness, or discomfort as you do these exercises, but you should stop right away if you feel sudden pain or your pain gets worse. Exercises Single knee to chest Repeat these steps 3?5 times for each le. Lie on your back on a firm bed or the floor with your legs extended. Bring one knee to your chest. Your other leg should stay extended and in contact with the floor. Hold your knee in place by grabbing your knee or thigh with both hands and hold. Pull on your knee until you feel a gentle stretch in your lower back or buttocks. Hold the stretch for 10?30 seconds. Slowly release and straighten your leg. Pelvic tilt Repeat these steps 5?10 times: 1. Lie on your back on a firm bed or the floor with your legs extended. Bend your knees so they are pointing toward the ceiling and your feet are flat on the floor. Tighten your lower abdominal muscles to press your lower back against the floor. This motion will tilt your pelvis so your tailbone points up toward the ceiling instead of pointing to your feet or the floor. With gentle tension and even breathing, hold this position for 5?10 seconds. Cat-cow Repeat these steps until your lower back becomes more flexible: 1. Get into a jdpei-wec-qxcqg position on a firm bed or the floor. Keep your hands under your shoulders, and keep your knees under your hips. You may place padding under your knees for comfort. Let your head hang down toward your chest. Contract your abdominal muscles and point your tailbone toward the floor so your lower back becomes rounded like the back of a cat. Hold this position for 5 seconds. Slowly lift your head, let your abdominal muscles relax, and point your tailbone up toward the ceiling so your back forms a sagging arch like the back of a cow. Hold this position for 5 seconds. Press-ups Repeat these steps 5?10 times: 1. Lie on your abdomen (face-down) on a firm bed or the floor. Place your palms near your head, about shoulder-width apart. Keeping your back as relaxed as possible and keeping your hips on the floor, slowly straighten yourarms to raise the top half of your body and lift your shoulders. Do not use your back muscles to raise your upper torso. You may adjust the placement of your hands to make yourself more comfortable. Hold this position for 5 seconds while you keep your back relaxed. Slowly return to lying flat on the floor. Bridges Repeat these steps 10 times: 1. Lie on your back on a firm bed or the floor. Bend your knees so they are pointing toward the ceiling and your feet are flat on the floor. Your arms should be flat at your sides, next to your body. Tighten your buttocks muscles and lift your buttocks off the floor until your waist is at almost the same height as your knees. You should feel the muscles working in your buttocks and the back of your thighs. If you do not feel these muscles, slide your feet 1?2 inches (2.5?5 cm) farther away fromyour buttocks. Hold this position for 3?5 seconds. Slowly lower your hips to the starting position, and allow your buttocks muscles to relax completely. If this exercise is too easy, try doing it with your arms crossed over your chest. Abdominal crunches Repeat these steps 5?10 times: 1. Lie on your back on a firm bed or the floor with your legs extended. Bend your knees so they are pointing toward the ceiling and your feet are flat on the floor. Cross your arms over your chest. Tip your chin slightly toward your chest without bending your neck. Tighten your abdominal muscles and slowly raise your torso high enough to lift your shoulder bladesa tiny bit off the floor. Avoid raising your torso higher than that because it can put too much stress on your lower back and does not help to strengthen your abdominal muscles. Slowly return to your starting position. Back lifts Repeat these steps 5?10 times: 1. Lie on your abdomen (face-down) with your arms at your sides, and rest your forehead on the floor. Tighten the muscles in your legs and your buttocks. Slowly lift your chest off the floor while you keep your hips pressed to the floor. Keep the back of your head in line with the curve in your back. Your eyes should be looking at the floor. Hold this position for 3?5 seconds. Slowly return to your starting position. Contact a health care provider if: Your back pain or discomfort gets much worse when you do an exercise. Your worsening back pain or discomfort does not lessen within 2 hours after you exercise. If you have any of these problems, stop doing these exercises right away. Do not do them again unless your health care provider says that you can. Get help right away if: You develop sudden, severe back pain. If this happens, stop doing the exercises right away. Do not do them again unless your health care provider says that you can. This information is not intended to replace advice given to you by your health care provider. Make sure you discuss any questions you have with your health care provider. Document Released: 2005-03-11 Document Updated: 2023-03-07 Document Reviewed: 2021-04-16 [employer] Patient Education ? 2023 [employer] * Assessment & Plan Note - Marbella Alcaraz MD - 03/14/2024 3:42 PM EST Associated Problem(s): Spasm of thoracic back muscle Advised to use heat to affected area, I gave her information regarding stretching exercises for funmi. Take meloxicam 15 mg daily for 5 days then as needed. She can also take Tylenol every 8 hours as needed pain and Flexeril nightly for 5 days. If symptoms are more severe by tomorrow, she can come for a nurse visit for a Toradol injection. documented in this encounter Plan of Treatment Upcoming Encounters Date Type Department Care Team (Late st Contact Info) Description 04/20/2024 9:00 AM EST Office Visit [facility] [address] [place], [place] [phone] Emily Solomon, DMD [address] [place], [place] [phone] 05/17/2024 9:30 AM EDT Office Visit [facility] [address] [place], [place] [phone] Delilah Bridges MD [address] [place], [place] [phone] documented as of this encounter Procedures Procedure Name Priority Date/Time Associated Diagnosis Comments POCT , URINE Routine 03/14/2024 3:46 PM EST Spasm of thoracic back muscle POCT URINALYSIS DIPSTICK Routine 03/14/2024 3:46 PM EST Spasm of thoracic back muscle documented in this encounter Results * POCT , urine manually resulted (03/14/2024 3:46 PM EST) Preg Test, Ur Negative Negative, Indeterminate, None Detected, Invalid, Specimen unsatisfactory for evaluation, Weakly Positive Urine 03/14/2024 3:46 PM EST us Marbella Alcaraz MD POINT OF CARE TEST ENTER /EDIT ORDERABLES Final Result * POCT urinalysis dipstick manually resulted (03/14/2024 3:46 PM EST) Color, UA Yellow Clarity, UA Clear Glucose, UA Negative Bilirubin, UA Negative Ketones, UA Negative Spec Grav, UA 1.025 Blood, UA Negative Negative, None Detected pH, UA 7.0 Protein, UA Negative Urobilinogen, UA 0.2 Leukocytes, UA Negative Negative, Rare, Trace Nitrite, UA Negative Negative, None Detected Urine 03/14/2024 3:46 PM EST Marbella Alcaraz MD POINT OF CARE TEST ENTER /EDIT ORDERABLES Final Result documented in this encounter Visit Diagnoses Diagnosis Spasm of thoracic back muscle- Primary documented in this encounter Additional Health Concerns Assessment Noted Time PHQ-9 Depression Total Score: 6 06/30/19 24 11:22 AM EDT documented as of this encounter Care Teams Can Feeder Relationship Specialty Start Date End Date Delilah Bridges MD [address] [place] [id number] PCP - General Family Medicine 02/15/18 Sharifa Duncan MD [address] [id number] Sleep Medicine 01/24/24 documented as of this encounter
--- OUTSIDE RECORDS SUMMARY | 2024-03-29 12:21 | XMS_ITS | Clinical Summary ---
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 06/11/19 24 Active loratadine (Claritin) 10 MG tabletIndication s:Right maxillary sinusitis Take 1 tablet (10 mg) by mouth Once per day. 90 tablet 3 06/30/19 24 2024 Active ProAir HFA 108 (90 Base) MCG/ACT inhalerIndicatio ns:Mild asthma, unspecified whether complicated, unspecified whether persistent INHALE 2 PUFFS BY MOUTH EVERY 4 - 6 HOURS NEEDED FOR COUGH, WHEEZE, OR FOR SHORTNESS OF BREATH 18 g 1 06/30/19 24 Active Adderall XR 5 MG 24 hr capsuleIndicatio ns:Attention deficit hyperactivity disorder (ADHD), unspecified ADHD type TAKE 1 CAPSULE ORALLY EVERY MORNING FOR 30 DAYS 08/20/19 24 Active Sodium Fluoride 5000 Sensitive 1.1-5 % gelIndications:Angelique chow, dental PLEASE SEE ATTACHED FOR DETAILED DIRECTIONS 07/01/19 24 Active FLUoxetine (PROzac) 20 MG capsuleIndicatio ns:Major depressive disorder with current active episode, unspecified depression episode severity, unspecified whether recurrent TAKE 1 CAPSULE BY MOUTH EVERY DAY 90 capsule 3 12/20/19 24 Active neomycin-polymyx in-dexAMETHasone 0.1 % ointment Apply to right lower eyelid twice a day. 3.5 g 1 12/29/19 24 Active meloxicam (Mobic) 15 MG tablet Take 1 tablet (15 mg) by mouth if needed each day for mild pain or moderate pain for up to 15 days. 15 tablet 03/14/19 25 2024 Active cyclobenzaprine (Flexeril) 10 MG tablet Take 1 tablet (10 mg) by mouth at bedtime for 10 days. 10 tablet 03/14/19 25 Active acetaminophen (Tylenol) 500 MG tablet Take 1 tablet (500 mg) by mouth every 6 (six) hours if needed for mild pain for up to 20 doses. 20 tablet 03/14/19 25 Active Sod Fluoride-Potassi um Nitrate 1.1-5 % pasteIndications :Dental caries [place] teeth for 2 minutes, morning and night. Spit, do not rinse. Do not eat or drink anything for 30 minutes following brushing. 112 g 09/27/19 24 2024 Discontinued(T herapy completed) acetaminophen (Tylenol) 500 MG tablet Take 1 tablet (500 mg) by mouth every 6 (six) hours if needed for mild pain for up to 20 doses. 20 tablet 12/23/19 24 2024 Discontinued(R eorder (will not trigger notification to Pharmacy)) Active Problems Problem Noted Date Diagnosed Date Spasm of thoracic back muscle 03/14/2024 Assessment & Plan (03/14/2024 3:42 PM EST): Advised to use heat to affected area, I gave her information regarding stretching exercises for her back. Take meloxicam 15 mg daily for 5 days then as needed. She can also take Tylenol every 8 hours as needed pain and Flexeril nightly for 5 days. If symptoms are more severe by tomorrow, she can come for a nurse visit for a Toradol injection. Blepharitis of left lower eyelid 12/21/2023 Dyslipidemia 10/08/2023 Overview (10/08/2023): Lab Results Component Value Date CHOL 168 10/06/2023 TRIG 90 10/06/2023 TRIG 75 04/30/2022 HDL 36 (L) 10/06/2023 LDLCHOLCAL 114 (H) 10/06/2023 -continue lifestyle modification Assessment & Plan (10/08/2023 10:53 AM EDT): Lab Results Component Value Date CHOL 168 10/06/2023 TRIG 90 10/06/2023 TRIG 75 04/30/2022 HDL 36 (L) 10/06/2023 LDLCHOLCAL 114 (H) 10/06/2023 -continue lifestyle modification Pain, dental 10/08/2023 Physical exam 10/08/2023 Narcolepsy with cataplexy 06/10/2023 Overview (10/08/2023): Seen by sleep medicine 06/10/[address]Rani Dakota MD -She reports cataplexy - usually drops things and may ahve some knee buckling she also has sleep paralysis and hypopompic hallucinations -Polysomnography normal - 360 minutes of sleep was recorded -05/14/23 Multiple Sleep Latency Test was c/w narcolepsy (she had 3 Sleep Onset REM Periods,SOREM 3/4 with latency 10min,and sleep latency was 0) -avoid long distance driving, 2 scheduled naps for 20 min per day, Exercise 30minutes a day -trial her on armodafanil 200mg qd started 06/10/23 but she repots not taking due to side effects - sleep medicine 07/15/23 stop armodafanil due to side effects, trial patient on Xywav for cataplexy odium,calcium,mag,pot oxybate 0.5 gram/mL (Xywav) 2.25 grams orally; administer the first dose at bedtime and the second dose 2.5-4 hours later 180 mL 0RF Narcolepsy with cataplexy -been taking Adderall XR 5 MG, whic pt reports has brought significant relief. -Continue Adderall XR 5 MG. Assessment & Plan (10/08/2023 10:40 AM EDT): Seen by sleep medicine 06/10/[address]Rani Dakota MD -She reports cataplexy - usually drops things and may ahve some knee buckling she also has sleep paralysis and hypopompic hallucinations -Polysomnography normal - 360 minutes of sleep was recorded -05/14/23 Multiple Sleep Latency Test was c/w narcolepsy (she had 3 Sleep Onset REM Periods,SOREM 3/4 with latency 10min,and sleep latency was 0) -avoid long distance driving, 2 scheduled naps for 20 min per day, Exercise 30minutes a day -trial her on armodafanil 200mg qd started 06/10/23 but she repots not taking due to side effects - sleep medicine 07/15/23 stop armodafanil due to side effects, trial patient on Xywav for cataplexy odium,calcium,mag,pot oxybate 0.5 gram/mL (Xywav) 2.25 grams orally; administer the first dose at bedtime and the second dose 2.5-4 hours later 180 mL 0RF Narcolepsy with cataplexy -been taking Adderall XR 5 MG, whic pt reports has brought significant relief. -Continue Adderall XR 5 MG. Assessment & Plan (06/30/2023 12:24 PM EDT): Seen by sleep medicine 06/10/[address]Rani Dakota MD -She reports cataplexy - usually drops things and may ahve some knee buckling she also has sleep paralysis and hypopompic hallucinations -Polysomnography normal - 360 minutes of sleep was recorded -05/14/23 Multiple Sleep Latency Test was c/w narcolepsy (she had 3 Sleep Onset REM Periods,SOREM 3/4 with latency 10min,and sleep latency was 0) -avoid long distance driving, 2 scheduled naps for 20 min per day, Exercise 30minutes a day -trial her on armodafanil 200mg qd started 06/10/23 but she repots not taking due to side effects - sleep medicine will consider sunosi or wakix in future Preventative health care 12/24/2022 Overview (10/08/2023): -next physical exam due after 10/07/24 -eye care facilitated by [facility] -dental home is [facility] -health care proxy filed 06/30/23 Assessment & Plan (10/08/2023 10:54 AM EDT): -next physical exam due after 10/07/24 -eye care facilitated by [facility] -dental home is [facility] -health care proxy filed 06/30/23 Seasonal allergies 08/05/2022 Overview (08/05/2022): Take Flonase and loratadine as needed. Assessment & Plan (08/05/2022 10:25 AM EDT): Take Flonase and loratadine as needed. Asthma 08/05/2022 Overview (10/08/2023): -well controlled on albuterol prn Assessment & Plan (10/08/2023 10:52 AM EDT): -well controlled on albuterol prn Assessment & Plan (08/05/2022 10:25 AM EDT): Take pump as needed. Major depressive disorder with current active ep isode 08/05/2022 Overview (10/08/2023): Improved. No SI/HI. -Start Fluoxetine 20 daily 08/05/22. -Referral to [facility] done 08/05/2022. -Declines therapist 10/08/23 Assessment & Plan (10/08/2023 10:53 AM EDT): Improved. No SI/HI. -Start Fluoxetine 20 daily 08/05/22. -Referral to [facility] done 08/05/2022. -Declines therapist 10/08/23 Assessment & Plan (08/05/2022 10:41 AM EDT): Likely exacebated from court case in her husbands murder. No SI/HI -Start Fluoxetine 20 daily 08/05/22. -Referral to [facility] done 08/05/2022. Chronic sacroiliac pain 04/08/2022 Facet syndrome, lumbar 04/08/2022 Iron deficiency 04/08/2022 Overview (10/08/2023): Lab Results Component Value Date FERRITIN 20 04/30/2022 HGB 14.1 04/30/2022 HGB 13.6 09/01/2021 HEMATOCRIT 40.9 04/30/2022 HEMATOCRIT 40.9 09/01/2021 IRONTOTAL 73 04/30/2022 Assessment & Plan (10/08/2023 10:52 AM EDT): Lab Results Component Value Date FERRITIN 20 04/30/2022 HGB 14.1 04/30/2022 HGB 13.6 09/01/2021 HEMATOCRIT 40.9 04/30/2022 HEMATOCRIT 40.9 09/01/2021 IRONTOTAL 73 04/30/2022 Assessment & Plan (08/05/2022 9:36 AM EDT): CBC Without Diff to be performed., Ferritin to be performed., General Chem Profile to be performed., Hep C Ab w/Rflx to Hep C RNA, Quant, RT-PCR to be performed., HIV 1 And 2 AG/AB Combo to be performed., Lipid Panel to be performed., Magnesium to be performed., TSH Rfx on Abnormal to Free T4 to be performed., Vitamin B12 to be performed. and Vitamin D, 25-Hydroxy to be performed. Assessment & Plan (04/27/2022 11:40 AM EDT): CBC Without Diff to be performed., Ferritin to be performed., General Chem Profile to be performed., Hep C Ab w/Rflx to Hep C RNA, Quant, RT-PCR to be performed., HIV 1 And 2 AG/AB Combo to be performed., Lipid Panel to be performed., Magnesium to be performed., TSH Rfx on Abnormal to Free T4 to be performed., Vitamin B12 to be performed. and Vitamin D, 25-Hydroxy to be performed. Myalgia 04/08/2022 Vitamin D deficiency 04/08/2022 HGSIL on cytologic smear of cervix 06/30/2021 Overview (10/08/2023): -HGSIL on pap with Farrah Dorantes CNM 01/25/15 -Colpo done 02/03/2016 (unable to obtain results) -Colpo 02/03/16 CIN2/3 Dr. Tr Ponce was to have repeat colpo 8 weeks post but had multiple no shows. -Pap 01/20/18 ASCUS with + HPV -Pt saw Dr. Patterson on 03/22/18 -Colposcopy completed 10/17/[address] Rodas with LEEP endocervix and post cone ECC. -Pap 09/10/2022 NILM, HPV neg -follow up Dr. Rodas 08/2023 Assessment & Plan (10/08/2023 10:50 AM EDT): -HGSIL on pap with Farrah Dorantes CNM 01/25/15 -Colpo done 02/03/2016 (unable to obtain results) -Colpo 02/03/16 CIN2/3 Dr. Tr Ponce was to have repeat colpo 8 weeks post but had multiple no shows. -Pap 01/20/18 ASCUS with + HPV -Pt saw Dr. Patterson on 03/22/18 -Colposcopy completed 10/17/[address] Rodas with LEEP endocervix and post cone ECC. -Pap 09/10/2022 NILM, HPV neg -follow up Dr. Rodas 08/2023 Assessment & Plan (08/05/2022 10:38 AM EDT): -HGSIL on pap with Farrah Dorantes CNM 01/25/15 -Colpo done 02/03/2016 (unable to obtain results) -Colpo 02/03/16 CIN2/3 Dr. Tr Ponce was to have repeat colpo 8 weeks post but had multiple no shows. -Pap 01/20/18 ASCUS with + HPV -Pt saw Dr. Patterson on 03/22/18 -Colposcopy completed 10/17/[address] Rodas with LEEP endocervix and post cone ECC. Results requested -Encouraged to contact Dr. Rodas 08/05/2022 Assessment & Plan (04/27/2022 11:40 AM EDT): -HGSIL on pap with Farrah Dorantes CNM 01/25/15 -Colpo done 02/03/2016 (unable to obtain results) -Colpo 02/03/16 CIN2/3 Dr. Armando -Pt was to have repeat colpo 8 weeks post but had multiple no shows. -Pap 01/20/18 ASCUS with + HPV -Pt saw Dr. Patterson on 03/22/18 -Colposcopy completed 10/17/[address] Rodas with LEEP endocervix and post cone ECC. Results requested Migraine without aura 06/30/2021 Overview (10/08/2023): Present >10 yrs. Not assoc. with menses. She has try amitriptyline and Topamax and increasing propanolol w/o improvement. -Not controlled. -Now reporting daily headaches increasing severely with associated nausea. -Labs ordered. -Optho appt in the future. -Neurology referral done 12/2021, re-referred 08/05/2022. -restart propranolol 20mg bid 06/30/23 will titrate up to 40 bid if tolerated. -stopped Propranolol due to eye irritation. -Has tried Topamax, amytriptiline, propranolol in the past without relief. -Has Eye appt in October at [facility]. Assessment & Plan (10/08/2023 10:53 AM EDT): Present >10 yrs. Not assoc. with menses. She has try amitriptyline and Topamax and increasing propanolol w/o improvement. -Not controlled. -Now reporting daily headaches increasing severely with associated nausea. -Labs ordered. -Optho appt in the future. -Neurology referral done 12/2021, re-referred 08/05/2022. -restart propranolol 20mg bid 06/30/23 will titrate up to 40 bid if tolerated. -stopped Propranolol due to eye irritation. -Has tried Topamax, amytriptiline, propranolol in the past without relief. -Has Eye appt in October at [facility]. Assessment & Plan (06/30/2023 12:23 PM EDT): Present >10 yrs. Not assoc. with menses. She has try amitriptyline and Topamax and increasing propanolol w/o improvement. -Not controlled. -Now reporting daily headaches increasing severely with associated nausea. -Labs ordered. -Optho appt in the future. -Neurology referral done 12/2021, re-referred 08/05/2022. -restart propranolol 20mg bid will titrate up to 40 bid if tolerated. Assessment & Plan (08/05/2022 10:34 AM EDT): She has try amitriptyline and Topamax and increasing propanolol w/o improvement. -Not controlled. -Now reporting daily headaches increasing severely with associated nausea. -Labs ordered. -Optho appt in the future. -Neurology referral done 12/2021, re-referred 08/05/2022. . Assessment & Plan (04/27/2022 11:39 AM EDT): Present >10 yrs. Not assoc. with menses. She has try amitriptyline and Topamax and increasing propanolol w/o improvement. -Not controlled. -Now reporting daily headaches increasing severely with associated nausea. -Labs ordered. -Optho appt in the future. -Increase propranolol twice a day. will re refer to neruology Resolved Problems Problem Noted Date Diagnosed Date Resolved Date Attention deficit hyperactiv ity disorder (ADHD) 10/08/2023 10/08/2023 Acute UTI 08/05/2022 12/24/2022 Fatigue 04/29/2022 10/08/2023 Overview (03/03/2023): Likely due to poor sleep. -The home sleep study result was normal home sleep test, The AHI was less than 1/hr and oxygen franko was 92%. However, pt reports that she did not sleep well during the sleep study. -All labs were normal including TSH, CBC, Vit D, B12, Electrolytes. -seen by sleep medicine 01/2023, additional testing ordered Assessment & Plan (08/05/2022 10:37 AM EDT): Likely due to poor sleep. -All labs were normal including TSH, CBC, Vit D, B12, Electrolytes. Assessment & Plan (04/29/2022 1:43 PM EDT): Likely due to poor sleep. She will trial melatonin. Pt does have hx low Vit D and anemia. Also history and PE concerning for NICOLE. Will chack labs and sleep study. Trial of melatonin. Right ear pain 04/29/2022 12/24/2022 Overview (04/29/2022): Normal on exam. Advised to use loratidine. Assessment & Plan (08/05/2022 9:36 AM EDT): Normal on exam. Advised to use loratidine. Assessment & Plan (04/29/2022 12:05 PM EDT): Normal on exam. Advised to use loratidine. Chronic thoracic back pain 06/30/2021 0 10/08/2023 Gynecomastia 06/30/2021 04/27/2022 Anxiety state 08/05/2011 10/08/2023 Encounters Date Type Department Care Team Description 03/15/2024 Telephone [facility] [address] [place] [address] Marylin Medina RN Medication Question 03/14/2024 3:20 PM EST Office Visit [facility] [address] [place] [address] Marbella Alcaraz MD Spasm of thoracic back muscle (Primary Dx) 03/14/2024 Travel 01/31/2024 11:00 AM EST Office Visit [facility] ADULT DENT[facility] [address] [place] [address] Marychuy Joshi 01/31/2024 Telephone [facility] [address] [place] [address] Delilah Bridges MD Nurse Triage 01/18/2024 10:30 AM EST Office Visit [facility] ADULT [facility] [address] [place] [address] Emily Solomon DMD 12/29/2023 2:00 PM EST Office Visit [facility] [address] [place] [address] Janis Quiroga, OD Hordeolum externum of left lower eyelid (Primary Dx); Blepharitis of both eyes, unspecified eyelid, unspecified type; Hyperopia of both eyes 12/29/2023 Travel from Last 3 Months Immunizations Name Administration Dates Next Due HPV, Quadrivalent 08/10/2011 Hep B, adult 06/30/2023,09/04/2022,08/05/2022 Influenza injectable quadriv alent preservative free 01/30/2016 Influenza, IIV3, injectable 10/24/2009 Influenza, Split (incl. andre fied surface antigen) 10/16/2011 Pneumococcal Conjugate PCV 20 10/08/2023 Tdap 08/05/2022,08/10/2011 Social History Tobacco Use Types Packs/Day Years Used Date Smoking Tobacco: Never Passive Smoke Exposure: Never Smokeless Tobacco: Never Tobacco Cessation:Counseling Given: Not Answered Alcohol Use Standard Drinks/Week Comments Never 0 [...] Orientation Straight 12/15/2021 10 :19 AM EDT Last Filed Vital Signs Vital Sign Reading [...] oz) 03/14/2024 3:10 P M EST Height 167.6 cm (5' 6 ) 12/21/2023 3:29 PM EST Body Mass Index 34.61 12/21/2023 3:29 PM EST Plan of Treatment Upcoming Encounters Date Type Department Care Team (Late st Contact Info) Description 04/20/2024 9:00 AM EST Office Visit [facility] [address] [place] [address] mEily Solomon, AIME [address] [place] [address] 05/17/2024 9:30 AM EDT Office Visit [facility] [address] [place] [address] Delilah Bridges MD [address] [place] [address] Health Maintenance Due Date Last Done Comments Alcohol/Substance Use Screening 1999 HPV Vaccines (2 - 3-dose series) 09/07/2011 08/10/2011 Dental Oral Exam 10/15/2023 04/15/2023 COVID-19 Vaccine ( season) 2023 10/16/2020, 09/25/2020 Influenza Vaccine (#1) 2023 6, 10/16/2011, 10/24/2009 Depression Screening 06/29/2024 06/30/2023, 06/30/19 Family Planning (PISQ) 06/29/2024 06/30/2023 SDOH Screening 06/29/2024 06/30/2023 Dental Prophylaxis 08/01/2024 01/31/2024 Dental X-Ray: Bitewings 12/23/2024 12/23/19 24, 04/15/2023, 10/20/2022, Additional history exists Tobacco Screening 01/30/2025 01/31/2024 Dental X-Ray: Full Mouth 04/15/2026 04/15/2023, 04/16 Cervical Cancer Screening 09/11/2027 HPV/Cotest 09/11/2027 09/08/2021, 08/16, 07/10/2020, Additional history exists Pap Smear 09/11/2027 09/10/2022, 09/08/2021 Lipid Panel 10/05/2028 10/06/2023, 04/15, 09/01/2021, Additional history exists DTaP/Tdap/Td Vaccines (3 - Td or Tdap) 08/05/2032 08/05/2022, 08/10/2011 Zoster Vaccines (1 of 2) 10/30/2037 RSV Patients and Patients Aged 60 years or older (1 - 1-dose 75+ series) 10/30/2062 HIV Screening Completed 04/30/2022, 08/15, 09/26/2020, Additional history exists Hepatitis C Screening Completed 04/30/2022 , 09/01/2021, 09/26/2020 Hepatitis B Vaccines Completed 06/30/2023, 09/04/2022, 08/05/2022 Pneumococcal Vaccine: Pediatrics (0 to 5 Years) and At-Risk Patients (6 to 49) Years) Completed 10/08/2023 HIB Vaccines Aged Out No longer eligi ble based on patient's age to complete this topic Hepatitis A Vaccines Aged Out No long er eligible based on patient's age to complete this topic IPV Vaccines Aged Out No longer eligi ble based on patient's age to complete this topic Meningococcal Vaccine Aged Out No lanette royer eligible based on patient's age to complete this topic RSV under 20 months Aged Out No longe r eligible based on patient's age to complete this topic Rotavirus Vaccines Aged Out No longer eligible based on patient's age to complete this topic Procedures Procedure Name Priority Date/Time Associated Diagnosis Comments POCT , URINE Routine 03/14/2024 3:46 PM EST Spasm of thoracic back muscle POCT URINALYSIS DIPSTICK Routine 03/14/2024 3:46 PM EST Spasm of thoracic back muscle ORAL HYGIENE INSTRUCTIONS Routine 01/31/2024 11:00 AM EST ADJUNCTIVE GENERAL SERVICES - PROFESSIONAL VISITS - CASE PRESENTATION, SUBSEQUENT TO DETAILED AND EXTENSIVE TREATMENT PLANNING Routine 01/31/2024 11:00 AM EST PROPHYLAXIS - ADULT Routine 01/31/2024 1 1:00 AM EST ADJUNCTIVE GENERAL SERVICES - PROFESSIONAL VISITS - CASE PRESENTATION, SUBSEQUENT TO DETAILED AND EXTENSIVE TREATMENT PLANNING Routine 01/18/2024 10:30 AM EST 13 DO RESTORATIVE - RESIN-BASED COMPOSITE RESTORATIONS - DIRECT - RESIN-BASED COMPOSITE - TWO SURFACES, POSTERIOR Routine 01/18/2024 10:30 AM EST BITEWING - SINGLE RADIOGRAPHIC IMAGE Routine 12/23/2023 9:30 AM EST LIPID PANEL, STANDARD Routine 10/06/2023 12:38 PM EDT Dyslipidemia DIAGNOSTIC - DIAGNOSTIC IMAGING - INTRAORAL - COMPREHENSIVE SERIES OF RADIOGRAPHIC IMAGES Routine 04/15/2023 9:30 AM EST Dental caries Gingivitis PERIODIC ORAL EVALUATION - ESTABLISHED PATIENT Routine 04/15/2023 9:30 AM EST Dental caries Gingivitis PAP SMEAR Routine 09/10/2022 2:32 PM EDT HEPATITIS C AB W/REFL TO HCV RNA, QN, PCR Routine 04/30/2022 1:20 PM EDT Routine screening for STI (sexually transmitted infection) HIV 1/2 ANTIGEN/ANTIBODY, FOURTH GENERATION W/RFL Routine 04/30/2022 1:20 PM EDT Routine screening for STI (sexually transmitted infection) ZZZ HISTORICAL HPV E6/E7 RFLX DIRK 16 18/45 Routine 09/08/2021 2:01 PM EDT from Last 3 Months or Most Recently Relevant to Health Maintenance Results * POCT , urine manually resulted (03/14/2024 3:46 PM EST) Preg Test, Ur Negative Negative, Indeterminate, None Detected, Invalid, Specimen unsatisfactory for evaluation, Weakly Positive Urine 03/14/2024 3:46 PM EST Marbella Alcaraz MD POINT OF CARE TEST ENTER /EDIT ORDERABLES Final Result * POCT urinalysis dipstick manually resulted (03/14/2024 3:46 PM EST) Pathologist [facility] Color, UA Yellow Clarity, UA Clear Glucose, [...] TEST ENTER /EDIT ORDERABLES Final Result * (ABNORMAL) Lipid Panel, Standard (10/06/2023 12:38 PM EDT) Pathologist [facility] Triglycerides 90 <150 mg/dL [facility] Comment:Desirable Triglyceri de: less than 150 mg/dLBorderline High Triglyceride 150-199 mg/dLHigh Triglyceride: 200-499 mg/dLVery High Triglyceride: greater than or equal to 5OO mg/dL Cholesterol 168 <200 mg/dL [facility] Comment:Desirable Cholestero l: less than 200 mg/dLBorderline High Cholesterol: 200-239 mg/dLHigh Cholesterol: greater than 239 mg/dL LDL Cholesterol Calculated 114(H) <100 mg/dL [facility] Comment:Desirable LDL: less than 100 mg/dLNear Optimal/Above Optimal LDL: 110- 129 mg/dLBorderline High LDL: 130-159 mg/dLHigh LDL: 160-189 mg/dLVery High LDL: greater than or equal to 190 mg/dL HDL Cholesterol 36(L) >40 mg/dL [facility] Comment:Desirable HDL: great er than 40 mg/dL Note: This HDL assay may give artificially low results in patients with liver disease. Blood Venous blood specimen / Unknown 10/06/2023 12:38 PM EDT 10/06/2023 1:09 PM EDT us Delilah Bridges MD LAB BLOOD ORDERABLES Final Result [facility] [address] [place] [phone] * Pap Smear (09/10/2022 2:32 PM EDT) 09/10/2022 2:32 PM EDT 09/15/2022 9:15 AM EDT Narrative [facility] - 10/07/2022 9:24 AM EDT ----- ------- Name: Enoch Nolasco ?Age/Sex: 36/F ? : 1985 Unit#: [id number] ?? Attend Dr: Lito Rodas MD ?Re09/10/22 ?Status: DEP REF ? Location: HO.LNP ?Disch: ? ----- ------- SPEC : [id number] ?RECD: 09/15/22 ? STATUS: ??SOUT ? REQ NUM: [id number] ? LAN: 09/10/22 ? SUBM DR: Lito Rodas MD ? ENTERED: ??09/16/22 ?SP TYPE: Pap Smr ?OTHR DR: Delilah Bridges MD ? ORDERED: ??Pap Smear ? Interpretation ?? Satisfactory for evaluation. ?? Negative for intraepithelial lesion or malignancy. ?HPV mRNA E6/E7: ?NOT DETECTED ? This assay detects E6/E7 viral messenger RNA (mRNA) from 14 high-risk HPV types (16, 18, ?? 31, 33, 35, 39, 45, 51, 52, 56, 58, 59, 66, 68) ?? HPV testing performed by [facility], [place], [place]. ??See reference laboratory ?? pion of the EMR for entire report. ?Clinical Information LMP: 09/03/22 Previous PAP test: 09/06/21, OLAYINKA III ? Material Received ?? ThinPrep-Cervical Copies To: ?? Delilah Bridges MD ?? [address] ?? [place] [id number] ? Lito Rodas MD ?? [address] [place] [facility] ?? [place] ?? [phone] ----- ------- Signed (signature on file) ARNOLD Laughlin (ASCP) 10/07/22923 ? ----- ------- ? END OF REPORT ? us [facility] External Provider LAB CYT OLOG ORDERABLES Final Result [facility] [address] [place] [address] [phone] * Hepatitis C Antibody with Reflex to HCV, RNA, Quantitative, Real-Time PCR (04/30/2022 1:20 PM EDT) Hepatitis C Antibody NON-REACT JOAQUÍN NON-REACT JOAQUÍN [facility] Index 0.05 <1.00 [facility] Comment: HCV antibody was non-reactive. There is no laboratory evidence of HCV infection. In most cases, no further action is required. However, if recent HCV exposure is suspected, a test for HCV RNA (test code 37478) is suggested. For additional information please refer to http://SkyPicker.com.Fosubo/faq/KDS50p3 (This link is being provided for informational/ educational purposes only.) Blood Venous blood specimen / Unknown 04/30/2022 1:20 PM EDT 04/30/2022 1:21 PM EDT Narrative [facility] - 05/05/2022 12:29 AM EDT FASTING:YES FASTING: YES us Delilah Bridges MD LAB BLOOD ORDERABLES Final Result [facility] [address], [place] [address] [facility] [address] [place] [address] * HIV-1/2 Antigen and Antibodies, Fourth Generation, with Reflexes (04/30/2022 1:20 PM EDT) HIV Antigen/Antibody, 4th Generation NON-REAC TIVE NON-REAC TIVE [facility] Comment: HIV-1 antigen and HIV-1/HIV-2 antibodies were not detected. There is no laboratory evidence of HIV infection. PLEASE NOTE: This information has been disclosed to you from records whose confidentiality may be protected by state law. ??If your state requires such protection, then the state law prohibits you from making any further disclosure of the information without the specific written consent of the person to whom it pertains, or as otherwise permitted by law. A general authorization for the release of medical or other information is NOT sufficient for this purpose. ?? For additional information please refer to http://SkyPicker.com.Fosubo/faq/WFP123 (This link is being provided for informational/ educational purposes only.) The performance of this assay has not been clinically validated in patients less than 2 years old. Blood Venous blood specimen / Unknown 04/30/2022 1:20 PM EDT 04/30/2022 1:21 PM EDT Narrative [facility] - 05/05/2022 12:29 AM EDT FASTING:YES FASTING: YES Delilah Bridges MD LAB BLOOD ORDERABLES Final Result Performing Organization Address City/[facility]/ZIP Co de Phone Number [address], [place] [address] [facility] [address] [place] [phone] * HPV E6/E7 RFLX DIRK 16 18/45 (09/08/2021 2:01 PM EDT) HPV 16 RNA TNP [facility] HPV 18/45 RNA TNP [facility] HPV E6 E7 ADD TNP [facility] HPV mRNA E6/E7 rflx Not Detected Not Detected [facility] Comment: Methodology: Manager Warehouse-Mediated Amplification This assay detects E6/E7 viral messenger RNA (mRNA) from 14 high-risk HPV types (16,18,31,33,35,39,45,51,52,56,58,59,66,68). Cervical sources are required for HPV testing. If a vaginal source from a patient who has had a total hysterectomy with removal of cervix was submitted, please contact the testing laboratory for alternative testing options. For additional information, please refer to http://education.Fosubo/faq/YZG479l7 (This link if provided for information/ educational purposes only.) THIS TEST WAS PERFORMED AT: [facility] [address] [place] [address],[address] [place], [place] ??[phone] TEODORO SCHNEIDER MD 09/08/2021 2:01 PM EDT us Lito Rodas MD HISTORICAL/NON ORDERABLE LABS Fi nal Result [facility] [address] from Last 3 Months or Most Recently Relevant to Health Maintenance [place] [facility] STAND ADULT Advance Directives Documents on File Type Date Recorded Patient Assistant Education Director Expl anation Advance Directives and Living Will 06/30/2023 Health Care Proxy 06/30/23 Care Teams Model And Mold Maker Relationship Specialty Start Date End Date Cyrus, MD Delilah 230 [place] [address] PCP - General Family Medicine 02/15/18 Sharifa Duncan MD [address] [address] Sleep Medicine 01/24/24
--- OUTSIDE RECORDS SUMMARY | 2024-03-29 12:21 | XMS_ITS | Encounter Summary ---
Author Organization [employer] [facility] Address [address] [place] [address] Care Team Providers Care Global Supply Chain Director Name Role Phone Delilah Bridges MD Primary Care Provider +1- [phone] Sharifa Duncan MD Unavailable Encounter Details Date Type Department Care Team (Late st Contact Info) Description 03/26/2022 Abstract [facility] MEDICINE [address] [place] [address] [phone] Delilah Bridges MD 230 [place], [place] [phone] Social History Tobacco Use Types Packs/Day Years Used Date Smoking Tobacco: Never Assessed Comments Unknown Sex and Gender Information Value Date Recorded Sex Assigned at Female 12/15/2021 10:19 AM EDT Legal Sex Female 10:19 AM EDT Gender Identity Female 12/15/2021 10:19 AM EDT Sexual Orientation Straight 12/15/2021 10 :19 AM EDT documented as of this encounter Plan of Treatment Upcoming Encounters Date Type Department Care Team (Late st Contact Info) Description 04/20/2024 9:00 AM EST Office Visit [facility] ADULT DENTAL 505 [place], [place] [phone] Emily Solomon DMD 505 [place], [place] [phone] 05/17/2024 9:30 AM EDT Office Visit [facility] MEDICINE 230 [place], [place] [phone] Delilah Bridges MD 230 [place] [address] documented as of this encounter Procedures Procedure Name Priority Date/Time Associated Diagnosis Comments PAP SMEAR Routine 09/08/2021 12:00 AM EDT documented in this encounter Results * Pap Smear (09/08/2021 12:00 AM EDT) Swab us Historical Provider LAB CYTOLOGY ORDERABLES F inal Result IMAGING documented in this encounter Visit Diagnoses Not on filedocumented in this encounter Care Teams Global Supply Chain Director Relationship Specialty Start Date End Date Cyrus, MD Delilah [address] [place] [address] PCP - General Family Medicine 02/15/18 Sharifa Duncan MD 100 [facility] 360 [place] [address] Sleep Medicine 01/24/24 documented as of this encounter
--- OUTSIDE RECORDS SUMMARY | 2024-03-29 12:21 | XMS_ITS | Encounter Summary ---
Author Organization [employer] [facility] Address [address] [facility] 7t [place] [address] Care Team Providers Care Industrial Retrofit Designer Name Role Phone Delilah Bridgse MD Primary Care Provider +1- [phone] Sharifa Duncan MD Unavailable Encounter Details Date Type Department Care Team (Latest Contact Info) Description 03/14/2024 Travel Social History Tobacco Use Types Packs/Day Years [...] Description 04/20/2024 9:00 AM EST Office Visit [facility] ADULT [facility]AL 505 [place], [place] [phone] Emily Solomon, DMD 505 [place] [address] 05/17/2024 9:30 AM EDT Office Visit [facility] MED[facility]INE 230 [place] [address] Delilah Bridges MD 230 [place] [address] documented as of this encounter Visit Diagnoses Not on filedocumented in this encounter Additional Health Concerns Assessment Noted Time PHQ-9 Depression Total Score: 6 06/30/19 24 11:22 AM EDT documented as of this encounter Care Teams Industrial Retrofit Designer Relationship Specialty Start Date End Date Delilah Bridges MD [address] [place] [address] PCP - General Family Medicine 02/15/18 Sharifa Duncan MD [address] [address] Sleep Medicine 01/24/24 documented as of this encounter
--- OUTSIDE RECORDS SUMMARY | 2024-03-29 12:21 | XMS_ITS | Encounter Summary ---
Author Organization [facility] [facility] Address 75 [facility] 7t [place] [address] Care Team Providers Care Lead Manufacturing Engineer Name Role Phone Delilah Bridges MD Primary Care Provider +1- [phone] Sharifa Duncan MD Unavailable Reason for Visit * Reason Onset Date Comments Nurse Triage 03/23/2023 Encounter Details Date Type Department Care Team (Late st Contact Info) Description 03/23/2023 Telephone [facility] MEDICINE 230 [place], [place] [phone] Delilah Bridges MD 230 [place], [place] [phone] Nurse Triage Social History Tobacco Use Types [...] Telephone Encounter - Sharon Dacosta RN - 03/23/2023 1:38 PM EST Triage call with [employer] [place] [id number]. Pt reports a lump greater than the size of ping pong ball has erupted on the middle of forehead over night. Pt reports some redness, warm to touch but, not painful. Pt reports it has a feeling of pressure and has been having headaches. Pt has hx of bells palsy for 7 years. Pt is advised to come to [facility] today , open till 8pm, for provider to see Pt. Pt agrees with disposition. Insurance is verified as active. Protocol Used: Skin Lump or Localized Swelling (Adult) Protocol-Based Disposition: Go to Office or Video Visit Now Video visit not offered Positive Triage Question: * Swelling is red and size > 2 inches (5.0 cm) * All higher-acuity triage questions were negative Care Advice Discussed: * Reasons To Call Back - Fever occurs - Spreading redness occurs - Swelling becomes painful - Swelling persists over 1 week - You become worse * Telephone Encounter - Gail Clancy - 03/23/2023 11:33 AM EST Symptom: Skin Lump (forehead) Outcome: Schedule an appointment to be seen within 3 days Reason: Caller denied all higher acuity questions The caller accepted this outcome Please contact pt at [phone] (mongolian) documented in this encounter Plan of Treatment Upcoming Encounters Date Type Department Care Team (Late st Contact Info) Description 04/20/2024 9:00 AM EST Office Visit [facility] ADULT DENTAL 505 [place], [place] [phone] Juanito Emily, DMD 505 [place], [place] [phone] 05/17/2024 9:30 AM EDT Office Visit [facility] MEDICINE 230 [place] [address] Delilah Bridges MD 230 [place], [place] [phone] documented as of this encounter Visit Diagnoses Not on filedocumented in this encounter Additional Health Concerns Assessment Noted Time PHQ-9 Depression Total Score: 3 04/30/19 23 11:45 AM EDT documented as of this encounter Care Teams Lead Manufacturing Engineer Relationship Specialty Start Date End Date Delilah Bridges MD [address] [place] [phone] PCP - General Family Medicine 02/15/18 Sharifa Duncan MD [address] [address] Sleep Medicine 01/24/24 documented as of this encounter
== END 2024-03-29 11:20 | disposition home or self-care (01) ==
LOC: HO.HWS 10:35
PROVIDERS: PCP Family Medicine; Visit Provider Advanced Practice Midwife
DX: Z01.419 Encounter for gynecological examination (general) (routine) without abnormal findings (principal); D06.9 Carcinoma in situ of cervix, unspecified
CPT/HCPCS: 99395; 99459

== ENCOUNTER 2024-03-29 10:35 | Outpatient (REF) | payer MEDICAID, SELFPAY ==
--- OUTSIDE RECORDS SUMMARY | 2024-03-29 13:33 | XMS_ITS | Encounter Summary ---
Author Organization [facility] [facility] Address 75 [facility] 7t [place] [address] Care Team Providers Care Retail Sales Associate Name Role Phone Delilah Bridges MD Primary Care Provider +1- [phone] Sharifa Duncan MD Unavailable Reason for Visit * Reason Onset Date Comments Med Refill 09/27/2023 Encounter Details Date Type Department Care Team (Late st Contact Info) Description 09/27/2023 Refill [facility] ADULT DENTAL [address] [place] [address] Eliezer Urbina, DMD [address] [place] [address] Dental caries Social History Tobacco Use Types [...] Description 04/20/2024 9:00 AM EST Office Visit [facility] CHC ADULT DENTAL 505 [place] [address] Emily Solomon DMD 505 [place] [address] 05/17/2024 9:30 AM EDT Office Visit [facility] MEDICINE 230 [place] [address] Delilah Bridges MD 230 [place] [address] documented as of this encounter Visit Diagnoses Diagnosis Dental caries Unspecified dental caries documented in this encounter Additional Health Concerns Assessment Noted Time PHQ-9 Depression Total Score: 6 06/30/19 24 11:22 AM EDT documented as of this encounter Care Teams Retail Sales Associate Relationship Specialty Start Date End Date Delilah Bridges MD [address] [place] [address] PCP - General Family Medicine 02/15/18 Shraifa Duncan MD [address] [address] Sleep Medicine 01/24/24 documented as of this encounter
--- OUTSIDE RECORDS SUMMARY | 2024-03-29 13:33 | XMS_ITS | Clinical Summary ---
Author Organization [employer] Address 75 [facility] 7t [place] [address] Care Team Providers Care Parliamentary Archivist Name Role Phone Delilah Bridges MD Primary Care Provider +1- [phone] Sharifa Duncan MD Unavailable Allergies No known [...] um Nitrate 1.1-5 % pasteIndications :Dental caries [place] teeth for 2 minutes, morning and night. [...] due after 10/07/24 -eye care facilitated by [facility] -dental home is [facility] -health care proxy filed 06/30/23 Assessment & Plan (10/08/2023 10:54 AM EDT): -next physical exam due after 10/07/24 -eye care facilitated by [facility] -dental home is [facility] -health care proxy filed 06/30/23 Seasonal [...] relief. -Has Eye appt in October at [facility]. Assessment & Plan (10/08/2023 10:53 AM [...] relief. -Has Eye appt in October at [facility]. Assessment & Plan (06/30/2023 12:23 PM [...] Type Department Care Team Description 03/15/2024 Telephone [facility] MEDICINE 230 [place] [address] Marylin Medina RN Medication Question 03/14/2024 3:20 PM EST Office Visit [facility] WALK[facility]IN CENTER 230 [place] [address] Marbella Alcaraz MD Spasm of thoracic back muscle (Primary Dx) 03/14/2024 Travel 01/31/2024 11:00 AM EST Office Visit [facility] ADULT DENTAL 505 [place] [address] Marychuy Joshi 01/31/2024 Telephone [facility] MEDICINE [address] [place] [address] Delilah Bridges MD Nurse Triage 01/18/2024 10:30 AM EST Office Visit [facility] ADULT DENTAL 505 [place] [address] Emily Solomon DMD 12/29/2023 2:00 PM EST Office Visit [facility] OPTOMETRY [address] [place] [address] Janis Quiroga, OD Hordeolum externum of left [...] Description 04/20/2024 9:00 AM EST Office Visit [facility] CHC ADULT DENTAL 505 [place] [address] Emily Solomon, AIME 505 [place] [address] 05/17/2024 9:30 AM EDT Office Visit [facility] MEDICINE 230 [place] [address] Delilah Bridges MD 230 [place] [address] Health Maintenance Due Date Last Done Comments [...] manually resulted (03/14/2024 3:46 PM EST) Pathologist [facility] Color, UA Yellow Clarity, UA Clear Glucose, [...] Panel, Standard (10/06/2023 12:38 PM EDT) Pathologist [facility] Triglycerides 90 <150 mg/dL [facility] Comment:Desirable Triglyceri de: less than 150 mg/dLBorderline High Triglyceride 150-199 mg/dLHigh Triglyceride: 200-499 mg/dLVery High Triglyceride: greater than or equal to 5OO mg/dL Cholesterol 168 <200 mg/dL [facility] Comment:Desirable Cholestero l: less than 200 mg/dLBorderline High Cholesterol: 200-239 mg/dLHigh Cholesterol: greater than 239 mg/dL LDL Cholesterol Calculated 114(H) <100 mg/dL [facility] Comment:Desirable LDL: less than 100 mg/dLNear Optimal/Above Optimal LDL: 110- 129 mg/dLBorderline High LDL: 130-159 mg/dLHigh LDL: 160-189 mg/dLVery High LDL: greater than or equal to 190 mg/dL HDL Cholesterol 36(L) >40 mg/dL [facility] Comment:Desirable HDL: great er than 40 mg/dL Note: This HDL assay may give artificially low results in patients with liver disease. Blood Venous blood specimen / Unknown 10/06/2023 12:38 PM EDT 10/06/2023 1:09 PM EDT us Delilah Bridges MD LAB BLOOD ORDERABLES Final Result [facility] [address] [place] [phone] * Pap Smear (09/10/2022 2:32 PM EDT) 09/10/2022 2:32 PM EDT 09/15/2022 9:15 AM EDT Narrative [facility] - 10/07/2022 9:24 AM EDT ----- ------- Name: Enoch Nolasco ?Age/Sex: 36/F ? : 1985 Unit#: [id number] ?? Attend Dr: Lito Rodas MD ?Re09/10/22 ?Status: DEP REF ? Location: HO.LNP ?Disch: ? ----- ------- SPEC : [id number] ?RECD: 09/15/22 ? STATUS: ??SOUT ? REQ NUM: [id number] ? LAN: 09/10/22 ? SUBM DR: Lito [...] 66, 68) ?? HPV testing performed by [facility], [place], [place]. ??See reference laboratory ?? pion of the EMR for entire report. ?Clinical Information LMP: 09/03/22 Previous PAP test: 09/06/21, OLAYINKA III ? Material Received ?? ThinPrep-Cervical Copies To: ?? Delilah Bridges MD ?? [address] ?? [place] [address] ? Lito Rodas MD ?? [address] [facility] [address] [facility] ?? [place] ?? [phone] ----- ------- Signed (signature on file) ARNOLD Laughlin (ASCP) 10/07/22923 ? ----- ------- ? END OF REPORT ? us [facility] External Provider LAB CYT OLOG ORDERABLES Final Result [facility] [address] [place] [address] [phone] * Hepatitis C Antibody with Reflex to HCV, RNA, Quantitative, Real-Time PCR (04/30/2022 1:20 PM EDT) Hepatitis C Antibody NON-REACT JOAQUÍN NON-REACT JOAQUÍN [facility] Index 0.05 <1.00 [facility] [place] [facility] Comment: HCV antibody was non-reactive. There is no laboratory evidence of HCV infection. In most cases, no further action is required. However, if recent HCV exposure is suspected, a test for HCV RNA (test code 50536) is suggested. For additional information please refer to http://Typesafe.[employer] Technologies/faq/DIH66e2 (This link is being provided for informational/ educational purposes only.) Blood Venous blood specimen / Unknown 04/30/2022 1:20 PM EDT 04/30/2022 1:21 PM EDT Narrative [facility] - 05/05/2022 12:29 AM EDT FASTING:YES FASTING: YES us Delilah Bridges MD LAB BLOOD ORDERABLES Final Result [facility] [address], [place] [address] [facility] [place] [facility] 200 [place] [address] * HIV-1/2 Antigen and Antibodies, Fourth Generation, with Reflexes (04/30/2022 1:20 PM EDT) HIV Antigen/Antibody, 4th Generation NON-REAC TIVE NON-REAC TIVE [facility] Comment: HIV-1 antigen and HIV-1/HIV-2 antibodies were [...] ?? For additional information please refer to http://Typesafe.[employer] Technologies/faq/RLQ933 (This link is being provided for informational/ educational purposes only.) The performance of this assay has not been clinically validated in patients less than 2 years old. Blood Venous blood specimen / Unknown 04/30/2022 1:20 PM EDT 04/30/2022 1:21 PM EDT Narrative [facility] - 05/05/2022 12:29 AM EDT FASTING:YES FASTING: YES Delilah Bridges MD LAB BLOOD ORDERABLES Final Result Performing Organization Address City/[facility]/ZIP Co de Phone Number [address], [place] [address] [facility] [address] [place] [phone] * HPV E6/E7 RFLX DIRK 16 18/45 (09/08/2021 2:01 PM EDT) HPV 16 RNA TNP [facility] HPV 18/45 RNA TNP [facility] HPV E6 E7 ADD TNP [facility] HPV mRNA E6/E7 rflx Not Detected Not Detected [facility] Comment: Methodology: Water Mangle Tender-Mediated Amplification This assay detects E6/E7 viral messenger RNA (mRNA) from 14 high-risk HPV types (16,18,31,33,35,39,45,51,52,56,58,59,66,68). Cervical sources are required for HPV testing. If a vaginal source from a patient who has had a total hysterectomy with removal of cervix was submitted, please contact the testing laboratory for alternative testing options. For additional information, please refer to http://education.[employer]/faq/HWE830s1 (This link if provided for information/ educational purposes only.) THIS TEST WAS PERFORMED AT: [facility] [address] [place] [address],[address] [place], [place] ??[phone] TEODORO SCHNEIDER MD 09/08/2021 2:01 PM EDT us Lito Rodas MD HISTORICAL/NON ORDERABLE LABS Fi nal Result [facility] [address] from Last 3 Months or Most Recently Relevant to Health Maintenance [place] [facility] STAND ADULT Advance Directives Documents on File Type Date Recorded Patient Community Educator Expl anation Advance Directives and Living Will 06/30/2023 Health Care Proxy 06/30/23 Care Teams Parliamentary Archivist Relationship Specialty Start Date End Date Cyrus, MD Delilah [address] [place] [address] PCP - General Family Medicine 02/15/18 Sharifa Duncan MD [address] [address] Sleep Medicine 01/24/24
--- OUTSIDE RECORDS SUMMARY | 2024-03-29 13:33 | XMS_ITS | Encounter Summary ---
Author Organization [facility] Address [address] [facility] 7t [place] [address] Care Team Providers Care Field Operations Supervisor Name Role Phone Delilah Bridges MD Primary Care Provider +1- [phone] Sharifa Duncan MD Unavailable Reason for Visit * Reason Onset Date Comments Nurse Triage 06/08/2023 Encounter Details Date Type Department Care Team ([facility] st Contact Info) Description 06/08/2023 Telephone [facility] MEDICINE 230 [place], [place] [phone] Delilah Bridges MD 230 [place], [place] [phone] Nurse Triage Social History Tobacco Use Types [...] 06/08/2023 4:28 PM EDT Triage call with [employer] Rotary Furnace Operator ID [id number] Pt reports migraine which is of chronic [...] accepted this outcome Please contact pt at [phone] documented in this encounter Plan of Treatment Upcoming Encounters Date Type Department Care Team (Late st Contact Info) Description 04/20/2024 9:00 AM EST Office Visit [facility] ADULT DENTAL 505 [place] [address] Juanito Emily, DMD 505 [place], [place] [phone] 05/17/2024 9:30 AM EDT Office Visit [facility] MEDICINE 230 [place] [address] Delilah Bridges MD [address] [place] [phone] documented as of this encounter Visit Diagnoses Not on filedocumented in this encounter Additional Health Concerns Assessment Noted Time PHQ-9 Depression Total Score: 3 04/30/19 23 11:45 AM EDT documented as of this encounter Care Teams Field Operations Supervisor Relationship Specialty Start Date End Date Delilah Bridges MD [address] [place] [address] PCP - General Family Medicine 02/15/18 Sharifa Duncan MD [address] [address] Sleep Medicine 01/24/24 documented as of this encounter
--- OUTSIDE RECORDS SUMMARY | 2024-03-29 13:34 | XMS_ITS | Encounter Summary ---
Author Organization [facility] Address [address] [facility] 7t [place] [address] Care Team Providers Care Mobile Health Vehicle Operator Name Role Phone Delilah Bridges MD Primary Care Provider +1- [phone] Sharifa Duncan MD Unavailable Reason for Visit * Reason Comments Back Pain Encounter Details Date Type Department Care Team (Late st Contact Info) Description 03/14/2024 3:20 PM EST Office Visit [facility] [address] [place] [address] [phone] Marbella Alcaraz MD 230 [place], [place] [phone] Spasm of thoracic back muscle (Primary Dx) [...] mouth Once per day. 90 tablet 3 uggmfwep-jsjaknkro-iytJFJVTryoyo 0.1 % ointment Apply to right lower [...] [DISCONTINUED] Sod Fluoride-Potassium Nitrate 1.1-5 % paste Datil teeth for 2 minutes, morning and night. [...] videos and all your education online visit, [email or web address] or scan this QR code with your [...] becomes more flexible: 1. Get into a cblmp-kvq-ckwoj position on a firm bed or the [...] 2005-03-11 Document Updated: 2023-03-07 Document Reviewed: 2021-04-16 [employer] Patient Education ? 2023 [employer] * Patient Education Note - Marbella Alcaraz MD - 03/14/2024 8:30 PM EST Images from the original note were not included. Patient Education Table of Contents Back Exercises To view videos and all your education online visit, [email or web address] or scan this QR code with your [...] becomes more flexible: 1. Get into a lztrm-frr-ajlus position on a firm bed or the [...] Reviewed: 2021-04-16 Elsevier Patient Education ? 2023 [employer] * Assessment & Plan Note - [...] Description 04/20/2024 9:00 AM EST Office Visit [facility] 505 [place], [place] [phone] Emily Solomon, DMD 505 [place], [place] [phone] 05/17/2024 9:30 AM EDT Office Visit [facility] 230 [place], [place] [phone] Delilah Bridges MD 230 [place], [place] [phone] documented as of this encounter Procedures Procedure [...] documented as of this encounter Care Teams Mobile Health Vehicle Operator Relationship Specialty Start Date End Date Delilah Bridges MD [address] [place] [address] PCP - General Family Medicine 02/15/18 Sharifa Duncan MD [address] [address] Sleep Medicine 01/24/24 documented as of this encounter
--- OUTSIDE RECORDS SUMMARY | 2024-03-29 13:34 | XMS_ITS | Encounter Summary ---
Author Organization [employer] [facility] Address 75 [facility] 7t [place] [address] Care Team Providers Care Mail Handler Sorter Name Role Phone Delilah Bridges MD Primary Care Provider +1- [phone] Sharifa Duncan MD Unavailable Encounter Details Date [...] Description 04/20/2024 9:00 AM EST Office Visit [facility] 505 [place], [place] [phone] Emily Solomon, DMD 505 [place] [address] 05/17/2024 9:30 AM EDT Office Visit [facility] 230 [place] [address] Delilah Bridges MD 230 [place] [address] documented as of this encounter Visit Diagnoses Not on filedocumented in this encounter Additional Health Concerns Assessment Noted Time PHQ-9 Depression Total Score: 6 06/30/19 24 11:22 AM EDT documented as of this encounter Care Teams Mail Handler Sorter Relationship Specialty Start Date End Date Delilah Bridges MD [address] [place] [address] PCP - General Family Medicine 02/15/18 Sharifa Duncan MD [address] [address] Sleep Medicine 01/24/24 documented as of this encounter
--- OUTSIDE RECORDS SUMMARY | 2024-03-29 13:34 | XMS_ITS | Encounter Summary ---
Author Organization [facility] Address [address] [facility] 7t [place] [address] Care Team Providers Care Bakery Demonstrator Name Role Phone Delilah Bridges MD Primary Care Provider +1- [phone] Sharifa Duncan MD Unavailable Reason for Visit * Reason Onset Date Comments Medication Question 03/15/2024 Encounter Details Date Type Department Care Team (Late st Contact Info) Description 03/15/2024 Telephone [facility] MEDICINE 230 [place], [place] [phone] Marylin Medina, RN 230 [place], [place] [phone] Medication Question Social History Tobacco Use Types [...] 9:00 AM EST Office Visit [facility] CHC ADULT DENTAL 505 [place] [address] Emily Solomon DMD 505 [place] [address] 05/17/2024 9:30 AM EDT Office Visit [facility] MEDICINE 230 [place] [address] Delilah Bridges MD 230 [place] [address] documented as of this encounter Visit Diagnoses Not on filedocumented in this encounter Additional Health Concerns Assessment Noted Time PHQ-9 Depression Total Score: 6 06/30/19 24 11:22 AM EDT documented as of this encounter Care Teams Bakery Demonstrator Relationship Specialty Start Date End Date Delilah Bridges MD 230 [place] [address] PCP - General Family Medicine 02/15/18 Sharifa Duncan MD 100 [facility] 360 [place] [address] Sleep Medicine 01/24/24 documented as of this encounter
--- OUTSIDE RECORDS SUMMARY | 2024-03-29 13:34 | XMS_ITS | Encounter Summary ---
Author Organization [employer] [facility] Address [address] [place] [address] Care Team Providers Care Match Up Worker Name Role Phone Delilah Bridges MD Primary Care Provider +1- [phone] Sharifa Duncan MD Unavailable Encounter Details Date Type Department Care Team (Late st Contact Info) Description 03/26/2022 Abstract [facility] MEDICINE [address] [place] [address] [phone] Delilah Bridges MD 230 [place], [place] [phone] Social History Tobacco Use Types Packs/Day Years [...] Description 04/20/2024 9:00 AM EST Office Visit [facility] CH[facility] ADULT DENTAL 505 [place], [place] [phone] Emily Solomon DMD 505 [place], [place] [phone] 05/17/2024 9:30 AM EDT Office Visit [facility] MEDICINE 230 [place], [place] [phone] Delilah Bridges MD 230 [place] [address] documented as of this encounter Procedures Procedure Name Priority Date/Time Associated Diagnosis Comments PAP SMEAR Routine 09/08/2021 12:00 AM EDT documented in this encounter Results * Pap Smear (09/08/2021 12:00 AM EDT) Swab us Historical Provider LAB CYTOLOGY ORDERABLES F inal Result IMAGING documented in this encounter Visit Diagnoses Not on filedocumented in this encounter Care Teams Match Up Worker Relationship Specialty Start Date End Date Cyrus, MD Delilah 230 [place] [address] PCP - General Family Medicine 02/15/18 Sharifa Duncan MD 100 [facility] 360 [place] [address] Sleep Medicine 01/24/24 documented as of this encounter
--- OUTSIDE RECORDS SUMMARY | 2024-03-29 13:34 | XMS_ITS | Encounter Summary ---
Author Organization [employer] [facility] Address [address] [facility] 7t [place] [address] Care Team Providers Care Sba Underwriter Name Role Phone Delilah Bridges MD Primary Care Provider +1- [phone] Sharifa Duncan MD Unavailable Reason for Visit * Reason Onset Date Comments Nurse Triage 03/23/2023 Encounter Details Date Type Department Care Team (Late st Contact Info) Description 03/23/2023 Telephone [facility] MEDICINE 230 [place], [place] [phone] Delilah Bridges MD 230 [place], [place] [phone] Nurse Triage Social History Tobacco Use Types [...] 03/23/2023 1:38 PM EST Triage call with [employer] Cra Officer [place] [id number]. Pt reports a lump greater than the size of ping pong ball has erupted on the middle of forehead over night. Pt reports some redness, warm to touch but, not painful. Pt reports it has a feeling of pressure and has been having headaches. Pt has hx of bells palsy for 7 years. Pt is advised to come to [facility] today , open till 8pm, for provider [...] accepted this outcome Please contact pt at [phone] (maori) documented in this encounter Plan of Treatment Upcoming Encounters Date Type Department Care Team (Late st Contact Info) Description 04/20/2024 9:00 AM EST Office Visit [facility] ADULT DENTAL 505 [place], [place] [phone] Juanito Emily, DMD 505 [place], [place] [phone] 05/17/2024 9:30 AM EDT Office Visit [facility] MEDICINE 230 [place] [address] Delilah Bridges MD 230 [place], [place] [phone] documented as of this encounter Visit Diagnoses Not on filedocumented in this encounter Additional Health Concerns Assessment Noted Time PHQ-9 Depression Total Score: 3 04/30/19 23 11:45 AM EDT documented as of this encounter Care Teams Sba Underwriter Relationship Specialty Start Date End Date Delilah Bridges MD [address] [place] [address] PCP - General Family Medicine 02/15/18 Sharifa Duncan MD [address] [address] Sleep Medicine 01/24/24 documented as of this encounter
[2024-03-29 18:00] LABS: Bacterial Vaginosis PCR POSITIVE (Negative); Candida Group PCR NOT DETECTED (Not Detect); Candida glab krusei PCR NOT DETECTED (Not Detect); Trichomonas vaginalis PCR NOT DETECTED (Not Detect)
[2024-03-30 06:47] LABS: CT PCR NOT DETECTED (Not Detect.); NG PCR NOT DETECTED (Not Detect.)
== END 2024-03-29 10:36 | disposition home or self-care (01) ==
LOC: HO.LAB 10:35
PROVIDERS: PCP Family Medicine; Visit Provider Advanced Practice Midwife
DX: Z01.419 Encounter for gynecological examination (general) (routine) without abnormal findings (principal); N89.8 Other specified noninflammatory disorders of vagina; Z20.2 Contact with and (suspected) exposure to infections with a predominantly sexual mode of transmission; D06.9 Carcinoma in situ of cervix, unspecified
CPT/HCPCS: 81515; 87491; 87591; 87626; 88175; 99395; 99459

== ENCOUNTER 2024-03-29 11:22 | Outpatient (REF) | payer MEDICAID, SELFPAY ==
[2024-04-05 15:01] LABS: HPV Genotype 16 Negative (Negative); HPV Genotype 18 Negative (Negative); HPV High Risk Negative (Negative)
== END 2024-03-29 11:23 | disposition home or self-care (01) ==
LOC: HO.LNP 11:22
PROVIDERS: Visit Provider Advanced Practice Midwife
DX: Z00.00 Encounter for general adult medical examination without abnormal findings (principal); N89.8 Other specified noninflammatory disorders of vagina
CPT/HCPCS: 87626; 88175

== ENCOUNTER 2024-04-19 08:47 | Outpatient (REF) | payer MEDICAID, SELFPAY ==
--- OUTSIDE RECORDS SUMMARY | 2024-04-19 11:19 | XMS_ITS | Encounter Summary ---
Author Organization [facility] Address [address] [place] [address] 7 [place] [address] Care Team Providers Care Agricultural Aircraft Pilot Name Role Phone Delilah Bridges MD Primary Care Provider +1- [phone] Sharifa Duncan MD Unavailable [facility] Unavailable Encounter Details Date Type Department Care Team (Late st Contact Info) Description 03/26/2022 Abstract [facility] MEDICINE [address] [place] [address] [phone] Delilah Bridges MD [address] [place] [address] [phone] Social History Tobacco Use Types Packs/Day Years [...] 04/20/2024 9:00 AM EST Office Visit [facility] CHC ADULT DENTAL [address] [place], [place] [phone] Emily Solomon DMD 05/17/2024 9:30 AM EDT Office Visit [facility] MEDICINE [address] [place] [address] [phone] Delilah Bridges MD [address] [place] [address] [phone] documented as of this encounter Procedures Procedure Name Priority Date/Time Associated Diagnosis Comments PAP SMEAR Routine 09/08/2021 12:00 AM EDT documented in this encounter Results * Pap Smear (09/08/2021 12:00 AM EDT) Swab us Historical Provider LAB CYTOLOGY ORDERABLES F inal Result IMAGING documented in this encounter Visit Diagnoses Not on filedocumented in this encounter Care Teams Agricultural Aircraft Pilot Relationship Specialty Start Date End Date Delilah Bridges MD 230 [place] [address] PCP - General Family Medicine 02/15/18 Sharifa Duncan MD [address] [facility] [address] [place] [address] Sleep Medicine 01/24/24 Tiffany Smith [address] [address] Gynecology 03/30/24 documented as of this encounter
--- OUTSIDE RECORDS SUMMARY | 2024-04-19 11:19 | XMS_ITS | Encounter Summary ---
Author Organization [facility] [facility] Address [address] [facility] 7t [place] [address] Care Team Providers Care Gang Leader Name Role Phone Delilah Bridges MD Primary Care Provider +1- [phone] Sharifa Duncan MD Unavailable [facility] Covarrubias Unavailable Reason for Visit * Reason Onset Date Comments Nurse Triage 06/08/2023 Encounter Details Date Type Department Care Team (Late st Contact Info) Description 06/08/2023 Telephone [facility] MEDICINE 230 [place], [place] [phone] Delilah Bridges MD 230 [place], [place] [phone] Nurse Triage Social History Tobacco Use Types [...] 06/08/2023 4:28 PM EDT Triage call with [employer] Process Artist ID [id number] Pt reports migraine which is of chronic [...] accepted this outcome Please contact pt at [phone] documented in this encounter Plan of Treatment Upcoming Encounters Date Type Department Care Team (Late st Contact Info) Description 04/20/2024 9:00 AM EST Office Visit [facility] ADULT D[facility]AL [address] [place] [address] Emily Solomon DMD 05/17/2024 9:30 AM EDT Office Visit [facility] 230 [place] [address] Delilah Bridges MD 230 [place] [address] documented as of this encounter Visit Diagnoses Not on filedocumented in this encounter Additional Health Concerns Assessment Noted Time PHQ-9 Depression Total Score: 3 04/30/19 23 11:45 AM EDT documented as of this encounter Care Teams Gang Leader Relationship Specialty Start Date End Date Delilah Bridges MD 230 [place] [address] PCP - General Family Medicine 02/15/18 Sharifa Duncan MD 100 [facility] 360 [place] [address] Sleep Medicine 01/24/24 Tiffany Smith [address] [address] Gynecology 03/30/24 documented as of this encounter
--- OUTSIDE RECORDS SUMMARY | 2024-04-19 11:19 | XMS_ITS | Clinical Summary ---
Author Organization [facility] Address [address] [facility] 7t [place] [address] Care Team Providers Care Well Service Derrick Worker Name Role Phone Delilah Bridges MD Primary Care Provider +1- [phone] Sharifa Duncan MD Unavailable MenardTiffany Unavailable Allergies No known active allergies Medications armodafinil (Nuvigil) 200 MG tablet Take 200 mg by mouth in the morning. 4 Active loratadine (Claritin) 10 MG tabletIndications :Right maxillary sinusitis Take 1 tablet (10 mg) by mouth Once per day. 90 tablet 3 4 025 Active ProAir HFA 108 (90 Base) MCG/ACT inhalerIndication s:Mild asthma, unspecified whether complicated, unspecified whether persistent INHALE 2 PUFFS BY MOUTH EVERY 4 - 6 HOURS NEEDED FOR COUGH, WHEEZE, OR FOR SHORTNESS OF BREATH 18 g 1 4 Active Adderall XR 5 MG 24 hr capsuleIndication s:Attention deficit hyperactivity disorder (ADHD), unspecified ADHD type TAKE 1 CAPSULE ORALLY EVERY MORNING FOR 30 DAYS 4 Active Sodium Fluoride 5000 Sensitive 1.1-5 % gelIndications:Pa in, dental PLEASE SEE ATTACHED FOR DETAILED DIRECTIONS 4 Active FLUoxetine (PROzac) 20 MG capsuleIndication s:Major depressive disorder with current active episode, unspecified depression episode severity, unspecified whether recurrent TAKE 1 CAPSULE BY MOUTH EVERY DAY 90 capsule 3 4 Active neomycin-polymyxi n-dexAMETHasone 0.1 % ointment Apply to right lower eyelid twice a day. 3.5 g 1 4 Active cyclobenzaprine (Flexeril) 10 MG tablet Take 1 tablet (10 mg) by mouth at bedtime for 10 days. 10 tablet 5 Active acetaminophen (Tylenol) 500 MG tablet Take 1 tablet (500 mg) by mouth every 6 (six) hours if needed for mild pain for up to 20 doses. 20 tablet 5 Active meloxicam (Mobic) 15 MG tablet Take 1 tablet (15 mg) by mouth if needed each day for mild pain or moderate pain for up to 15 days. 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 -Has Eye appt in October at [facility] [place]. Assessment & Plan (10/08/2023 10:53 AM EDT): [...] relief. -Has Eye appt in October at [facility] [place]. Assessment & Plan (06/30/2023 12:23 PM EDT): [...] Encounters Date Type Department Care Team Description 03/29/2024 Orders Only GENERIC EXTERNAL DATA DEPARTMENT Provider, Generic External Data 03/15/2024 Telephone [facility] [address] [place] [address] [phone] Marylin Medina RN Medication Question 03/14/2024 3:20 PM EST Office Visit [facility] [address] [place], [place] [phone] Marbella Alcaraz MD Spasm of thoracic back muscle (Primary Dx) 03/14/2024 Travel 01/31/2024 11:00 AM EST Office Visit [facility] [address] [place], [place] [phone] Marychuy Joshi 01/31/2024 Telephone [facility] [address] [place], [place] [phone] Delilah Bridges MD Nurse Triage from Last 3 Months Immunizations Name Administration [...] Description 04/20/2024 9:00 AM EST Office Visit [facility] [address] [place] [address] Emily Solomon DMD 05/17/2024 9:30 AM EDT Office Visit [facility] [address] [place] [address] Delilah Bridges MD [address] [place], [place] [phone] Health Maintenance Due Date Last Done Comments Alcohol/Substance Use Screening 1999 HPV Vaccines (2 - 3-dose series) 09/07/2011 08/10/2011 Dental Oral Exam 10/15/2023 04/15/2023 COVID-19 Vaccine ( season) 2023 10/16/2020, 09/25/2020 Influenza Vaccine (#1) 2023 6, 10/16/2011, 10/24/2009 Depression Screening 06/29/2024 06/30/2023, 06/30/19 24 Family Planning (PISQ) 06/29/2024 06/30/2023 SDOH Screening [...] Procedure Name Priority Date/Time Associated Diagnosis Comments CHLAMYDIA/N. GONORRHOEAE RNA, TMA, UROGENITAL Routine 03/29/2024 12:00 AM EST BACTERIAL VAGINOSIS PANEL Routine 03/29/2024 12:00 AM EST POCT , URINE Routine 03/14/2024 3:46 PM EST Spasm of thoracic back muscle POCT URINALYSIS DIPSTICK Routine 03/14/2024 3:46 PM EST Spasm of thoracic back muscle ORAL HYGIENE INSTRUCTIONS Routine 01/31/2024 11:00 AM EST CASE PRESENTATION, DETAILED AND EXTENSIVE TREATMENT PLANNING Routine 01/31/2024 11:00 AM EST PROPHYLAXIS - ADULT Routine 01/31/2024 1 1:00 AM EST BITEWING - SINGLE RADIOGRAPHIC IMAGE Routine 12/23/2023 9:30 AM EST LIPID PANEL, STANDARD Routine 10/06/2023 12:38 PM EDT Dyslipidemia INTRAORAL - COMPLETE SERIES OF RADIOGRAPHIC IMAGES Routine 04/15/2023 9:30 [...] Recently Relevant to Health Maintenance Results * (ABNORMAL) Bacterial Vaginosis (03/29/2024 12:00 AM EST) TRICHOMONAS VAGINALIS DETECTION BY PCR NOT DETECTED Not Detect [facility] BACTERIAL VAGINOSIS DETECTION BY PCR POSITIVE(A) Negative [facility] Comment:The BV organism targ ets of the Xpert Xpress MVP test can becommensal in women; Xpert Xpress MVP positive results forbacterial vaginosis should be considered in conjunction withother clinical and patient information to determine thedisease status. Organisms that are not detected by the XpertXpress MVP test have also been reported to be associatedwith BV and aerobic vaginitis.The Xpert Xpress MVP test performance has not been evaluatedin patients under the age of 14. JANET GROUP DETECTION BY PCR NOT DETECTED Not Detect [facility] Janet glab krusei PCR NOT DETECTED Not Detect [facility] 03/29/2024 03/29/2024 us Generic External Data Provider LAB MICROBIOLOGY - GENERAL ORDERABLES Final Result [facility] [address] [place] [phone] * Chlamydia/N. Gonorrhoeae RNA, TMA, Urogenitial (03/29/2024 12:00 AM EST) CT PCR NOT DETECTED Not Detect. [facility] Comment:A not detected test result does not exclude the possibilityof infection because test results can be affected byimproper specimen collection, concurrent antibiotic therapy,or the number of organisms in the specimen which may bebelow the sensitivity of the test. As with many diagnostictests, results from the Xpert CT/NG assay should beinterpreted in conjunction with other laboratory andclinical data available to the clinician.Xpert CT/NG performance has not been evaluated in patientsless than 14 years of age. The assay should not be used forthe evaluationof suspected sexual abuse or for other medico-legalindications. Additional testing is recommended in anycircumstance when false positive or false negative resultscould lead to adverse medical, social or psychologicalconsequences. NG PCR NOT DETECTED Not Detect. [facility] Comment:A not detected test result does not exclude the possibilityof infection because test results can be affected byimproper specimen collection, concurrent antibiotic therapy,or the number of organisms in the specimen which may bebelow the sensitivity of the test. As with many diagnostictests, results from the Xpert CT/NG assay should beinterpreted in conjunction with other laboratory andclinical data available to the clinician.Xpert CT/NG performance has not been evaluated in patientsless than 14 years of age. The assay should not be used forthe evaluationof suspected sexual abuse or for other medico-legalindications. Additional testing is recommended in anycircumstance when false positive or false negative resultscould lead to adverse medical, social or psychologicalconsequences. 03/29/2024 03/29/2024 Narrative [facility] - 03/30/2024 6:47 AM EST Vaginal Generic External Data Provider LAB MICROBIOLOGY - GENERAL ORDERABLES Final Result [facility] [address] [place] [phone] * POCT , urine manually resulted (03/14/2024 [...] Lipid Panel, Standard (10/06/2023 12:38 PM EDT) Triglycerides 90 <150 mg/dL [facility] Comment:Desirable Triglyceri de: less than 150 mg/dLBorderline High Triglyceride 150-199 mg/dLHigh Triglyceride: 200-499 mg/dLVery High Triglyceride: greater than or equal to 5OO mg/dL Cholesterol 168 <200 mg/dL [facility] Comment:Desirable Cholestero l: less than 200 mg/dLBorderline High Cholesterol: 200-239 mg/dLHigh Cholesterol: greater than 239 mg/dL LDL Cholesterol Calculated 114(H) <100 mg/dL [facility] Comment:Desirable LDL: less than 100 mg/dLNear Optimal/Above Optimal LDL: 110- 129 mg/dLBorderline High LDL: 130-159 mg/dLHigh LDL: 160-189 mg/dLVery High LDL: greater than or equal to 190 mg/dL HDL Cholesterol 36(L) >40 mg/dL [facility] Comment:Desirable HDL: great er than 40 mg/dL Note: This HDL assay may give artificially low results in patients with liver disease. Blood Venous blood specimen / Unknown 10/06/2023 12:38 PM EDT 10/06/2023 1:09 PM EDT us Delilah Bridges MD LAB BLOOD ORDERABLES Final Result Performing Organization Address City/State/[facility] Co de Phone Number [facility] [address] [place] [phone] * Pap Smear (09/10/2022 2:32 PM EDT) 09/10/2022 2:32 PM EDT 09/15/2022 9:15 AM EDT Narrative [facility] - 10/07/2022 9:24 AM EDT ----- ------- Name: Enoch Nolasco ?Age/Sex: 36/F ? : 1985 Unit#: [id number] ?? Attend Dr: Lito Rodas MD ?Re09/10/22 ?Status: DEP REF ? Location: HO.LNP ?Disch: ? ----- ------- SPEC : [id number] ?RECD: 09/15/22 ? STATUS: ??SOUT ? REQ NUM: [id number] ? LAN: 09/10/224 ? SUBM DR: Lito Rodas MD ? [...] 66, 68) ?? HPV testing performed by [facility], [place], [place]. ??See reference laboratory ?? pion of the EMR for entire report. ?Clinical Information LMP: 09/03/22 Previous PAP test: 09/06/21, OLAYINKA III ? Material Received ?? ThinPrep-Cervical Copies To: ?? Delilah Bridges MD ?? [address] ?? [place] [address] ? Lito Rodas MD ?? [address] [place] [facility] ?? [place] [address] ?? [phone] ----- ------- Signed (signature on file) ARNOLD Laughlin (ASCP) 10/07/22 0924 ? ----- ------- ? END OF REPORT ? us [facility] External Provider LAB CYT OLOGY ORDERABLES Final Result [facility] [address] [place] [phone] [phone] * Hepatitis C Antibody with Reflex to HCV, RNA, Quantitative, Real-Time PCR (04/30/2022 1:20 PM EDT) Pathologist [facility] Hepatitis C Antibody NON-REACT JOAQUÍN NON-REACT JOAQUÍN [facility] [place] [employer] Index 0.05 <1.00 [facility] [place] [employer] Comment: HCV antibody was non-reactive. There is no laboratory evidence of HCV infection. In most cases, no further action is required. However, if recent HCV exposure is suspected, a test for HCV RNA (test code 22707) is suggested. For additional information please refer to http://ComponentLab.HubNami/faq/QQS93u3 (This link is being provided for informational/ educational purposes only.) Blood Venous blood specimen / Unknown 04/30/2022 1:20 PM EDT 04/30/2022 1:21 PM EDT Narrative [facility] - 05/05/2022 12:29 AM EDT FASTING:YES FASTING: YES us Delilah Bridges MD LAB BLOOD ORDERABLES Final Result [facility] [address], [facility], [place] [address] [facility] [place] [employer] [address] [place] [phone] * HIV-1/2 Antigen and Antibodies, Fourth Generation, with Reflexes (04/30/2022 1:20 PM EDT) Pathologist [facility] HIV Antigen/Antibody, 4th Generation NON-REAC TIVE NON-REAC TIVE [facility] [place] [employer] Comment: HIV-1 antigen and HIV-1/HIV-2 antibodies were [...] ?? For additional information please refer to http://ComponentLab.HubNami/faq/KNV004 (This link is being provided for informational/ educational purposes only.) The performance of this assay has not been clinically validated in patients less than 2 years old. Blood Venous blood specimen / Unknown 04/30/2022 1:20 PM EDT 04/30/2022 1:21 PM EDT Narrative [facility] - 05/05/2022 12:29 AM EDT FASTING:YES FASTING: YES Delilah Bridges MD LAB BLOOD ORDERABLES Final Result Performing Organization Address [facility] Co de Phone Number [address], [place] [address] [facility] [address] [place] [phone] * HPV E6/E7 RFLX DIRK 16 18/45 (09/08/2021 2:01 PM EDT) HPV 16 RNA [facility] HPV 18/45 RNA [facility] HPV E6 E7 ADD [facility] HPV mRNA E6/E7 rflx Not Detected Not Detected [facility] Comment: Methodology: Photographic Printer-Mediated Amplification This assay detects E6/E7 viral messenger RNA (mRNA) from 14 high-risk HPV types (16,18,31,33,35,39,45,51,52,56,58,59,66,68). Cervical sources are required for HPV testing. If a vaginal source from a patient who has had a total hysterectomy with removal of cervix was submitted, please contact the testing laboratory for alternative testing options. For additional information, please refer to http://education.HubNami/faq/QOL041a5 (This link if provided for information/ educational purposes only.) THIS TEST WAS PERFORMED AT: [facility] [address] [place] [address],[address] [place], [place] ??[phone] TEODORO SCHNEIDER MD 09/08/2021 2:01 PM EDT us Lito Rodas MD HISTORICAL/NON ORDERABLE LABS Fi nal Result Performing Organization Address City/[facility]/ZIP Co de Phone Number [facility] [address] from Last 3 Months or Most Recently Relevant to Health Maintenance Insurance [place] [facility] MEDICAID STAND ADULT Advance Directives Documents on File Type Date Recorded Patient Spinning Lathe Operator Expl anation Advance Directives and Living Will 06/30/2023 Health Care Proxy 06/30/23 Care Teams Well Service Derrick Worker Relationship Specialty Start Date End Date Delilah Bridges MD [address] [place] [address] PCP - General Family Medicine 02/15/18 Sharifa Duncan MD 100 [facility] [address] [place] [address] Sleep Medicine 01/24/24 Tiffany Smith [address] [address] Gynecology 03/30/24
--- OUTSIDE RECORDS SUMMARY | 2024-04-19 11:19 | XMS_ITS | Encounter Summary ---
Author Organization [facility] Address [address] [facility] [address] [facility] 7t [place] [address] Care Team Providers Care Clerical Warehouse Worker Name Role Phone Delilah Bridges MD Primary Care Provider +1- [phone] Sharifa Duncan MD Unavailable [place] Covarrubias Unavailable Reason for Visit * Reason Onset Date Comments Nurse Triage 03/23/2023 Encounter Details Date Type Department Care Team (Late st Contact Info) Description 03/23/2023 Telephone [facility] [address] [place], [place] [phone] Delilah Bridges MD [address] [place], [place] [phone] Nurse Triage Social History Tobacco Use Types [...] 03/23/2023 1:38 PM EST Triage call with Targeted Growth Mine Engineering Supervisor ID [id number]. Pt reports a lump greater than the size of ping pong ball has erupted on the middle of forehead over night. Pt reports some redness, warm to touch but, not painful. Pt reports it has a feeling of pressure and has been having headaches. Pt has hx of bells palsy for 7 years. Pt is advised to come to [facility] today , open till 8pm, for [...] accepted this outcome Please contact pt at [phone] ([email or web address]) documented in this encounter Plan of Treatment Upcoming Encounters Date Type Department Care Team (Late st Contact Info) Description 04/20/2024 9:00 AM EST Office Visit [facility]ULT [facility] [address] [place] [address] Emily Solomon DMD 05/17/2024 9:30 AM EDT Office Visit [facility] [address] [place] [address] Delilah Bridges MD [address] [place] [address] documented as of this encounter Visit Diagnoses Not on filedocumented in this encounter Additional Health Concerns Assessment Noted Time PHQ-9 Depression Total Score: 3 04/30/19 23 11:45 AM EDT documented as of this encounter Care Teams Clerical Warehouse Worker Relationship Specialty Start Date End Date Delilah Bridges MD [address] [place] [address] PCP - General Family Medicine 02/15/18 Sharifa Duncan MD [address] [phone] Sleep Medicine 01/24/24 Tiffany Smith [address] [place] [address] Gynecology 03/30/24 documented as of this encounter
--- OUTSIDE RECORDS SUMMARY | 2024-04-19 11:19 | XMS_ITS | Encounter Summary ---
Author Organization [facility] Address [address] [facility] 7t [place] [address] Care Team Providers Care C 13 Catapult Operator Name Role Phone SpringfieldDelilah ricci MD Primary Care Provider +1- [phone] Sharifa Duncan MD Unavailable [place] Unavailable Reason for Visit * Reason Onset Date Comments Med Refill 09/27/2023 Encounter Details Date Type Department Care Team (Late st Contact Info) Description 09/27/2023 Refill [facility] [address] [place] [address] Eliezer Urbina, DMD [address] [place] [address] Dental caries Social History Tobacco Use Types [...] Description 04/20/2024 9:00 AM EST Office Visit [facility]ULT [facility] [address] [place] [address] Emily Solomon DMD 05/17/2024 9:30 AM EDT Office Visit [facility] [address] [place] [address] Delilah Bridges MD [address] [place] [address] documented as of this encounter Visit Diagnoses Diagnosis Dental caries Unspecified dental caries documented in this encounter Additional Health Concerns Assessment Noted Time PHQ-9 Depression Total Score: 6 06/30/19 24 11:22 AM EDT documented as of this encounter Care Teams C 13 Catapult Operator Relationship Specialty Start Date End Date Delilah Bridges MD [address] [place] [phone] PCP - General Family Medicine 02/15/18 Sharifa Duncan MD [address] [address] Sleep Medicine 01/24/24 Tiffany Smith [address] [address] Gynecology 03/30/24 documented as of this encounter
--- OUTSIDE RECORDS SUMMARY | 2024-04-19 11:19 | XMS_ITS | Encounter Summary ---
Author Organization [facility] Address [address] [facility] 7t [place] [address] Care Team Providers Care Chairman & Co Founder Name Role Phone Delilah Bridges MD Primary Care Provider +1- [phone] Sharifa Duncan MD Unavailable Encounter Details Date Type Department Care Team (Late st Contact Info) Description 03/29/2024 Orders Only GENERIC EXTERNAL DATA DEPARTMENT Provider, Generic External Data Social History Tobacco Use Types Packs/Day Years [...] t he electric, gas, oil or water [employer] threatened to shut off services in your [...] Description 04/20/2024 9:00 AM EST Office Visit [facility] [address] [place] [address] Emily Solomon DMD 05/17/2024 9:30 AM EDT Office [address] [facility] [address] [place] [address] Delilah Bridges MD [address] [place] [address] documented as of this encounter Procedures Procedure Name Priority Date/Time Associated Diagnosis Comments BACTERIAL VAGINOSIS PANEL Routine 03/29/2024 12:00 AM EST CHLAMYDIA/N. GONORRHOEAE RNA, TMA, UROGENITAL Routine 03/29/2024 12:00 AM EST documented in this encounter Results * Chlamydia/N. Gonorrhoeae RNA, TMA, Urogenitial (03/29/2024 12:00 AM EST) CT PCR NOT DETECTED Not Detect. [facility] Comment:A not detected test result [...] psychologicalconsequences. NG PCR NOT DETECTED Not Detect. [facility] Comment:A not detected test result [...] medical, social or psychologicalconsequences. 03/29/2024 03/29/2024 Narrative [facility] - 03/30/2024 6:47 AM EST Vaginal us Generic External Data Provider LAB MICROBIOLOGY - GENERAL ORDERABLES Final Result [facility] [address] [place] [phone] * (ABNORMAL) Bacterial Vaginosis (03/29/2024 12:00 AM EST) TRICHOMONAS VAGINALIS DETECTION BY PCR NOT DETECTED Not Detect [facility] BACTERIAL VAGINOSIS DETECTION BY PCR POSITIVE(A) Negative [facility] Comment:The BV organism targ ets [...] DETECTION BY PCR NOT DETECTED Not Detect [facility] Janet glab krusei PCR NOT DETECTED Not Detect [facility] 03/29/2024 03/29/2024 us Generic External Data Provider LAB MICROBIOLOGY - GENERAL ORDERABLES Final Result [facility] [address] [place] [phone] documented in this encounter Visit Diagnoses Not on filedocumented in this encounter Additional Health Concerns Assessment Noted Time PHQ-9 Depression Total Score: 6 06/30/19 24 11:22 AM EDT documented as of this encounter Care Teams Chairman & Co Founder Relationship Specialty Start Date End Date Delilah Bridges MD [address] [place] [phone] PCP - General Family Medicine 02/15/18 Sharifa Duncan MD [address] [address] Sleep Medicine 01/24/24 documented as of this encounter
== END 2024-04-19 08:48 | disposition home or self-care (01) ==
LOC: HO.LNP 08:47
PROVIDERS: PCP Family Medicine; Visit Provider Obstetrics & Gynecology
DX: R87.610 Atypical squamous cells of undetermined significance on cytologic smear of cervix (ASC-US) (principal)
CPT/HCPCS: 57454; 81025; 88305

== ENCOUNTER 2024-04-19 08:47 | Outpatient (AMB) | payer MEDICAID, SELFPAY ==
--- NOTE | 2024-04-19 08:50 | MHC.OFFVIS ---
Vital Signs 04/19/24 08:51 Height 5 ft 6 in Weight 212 lb BMI 34.2 BP 110/72 Intake Visit Reasons: Colposcopy Rivet Passer Required: Yes Rivet Passer Language: Western Felt Hat Blocker Services: Rivet Passer Present (in person) Rivet Passer Name: Moira ROSEN Information Interpreted: non-clinical & clinical Quantitative Software Engineer: Quantitative Software Engineer Present (Moira ROSEN) Accompanied by: Self / Same As Patient Allergies No Known Allergies Allergy (Verified 04/19/24 09:00) Is last menstrual period known: Yes Last menstrual period: 03/31/24 HPI Comments Details: Presenting for abnormal Pap smear showing ascus/HPV negative. 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 Dysplasia of cervix, low grade (OLAYINKA 1) Migraine Surgical History History of surgery of uterus Hx of tubal ligation Family History Mother Fibromyalgia Father HTN (hypertension) Maternal Grandmother Uterine cancer Sister Uterine cancer Social History Alcohol intake: never Comment: medicated in pacu Patient Tobacco Use Status: Never used Tobacco Second Hand Smoke Exposure: No Gender identity: Female Female Reproductive History Menstrual Age of Menarche: 18 Date of last menstrual period: 03/31/24 control method: permanent sterilization Review of Systems Const All systems reviewed & are unremarkable except as noted in HPI and below Reports as per HPI and Reports no additional complaints GI Reports no additional complaints Reports no additional complaints Physical Exam Vital Signs: Last Vital Signs BP 110/72 04/19/24 08:51 BMI result Body Mass Index 34.2 Office Procedures Colposcopy Colposcopy: Pre-Procedure Counseling: Before beginning the procedure, I conducted comprehensive counseling with the patient. We thoroughly discussed the procedure itself, including its details, alternatives, and all associated risks. This included but not limited to the following complications such as bleeding, infection, and injury to the vagina, bladder, and vessels, as well as the potential need for transfusion with all its associated risks. Subsequently, the patient sign the consent. Pap smear result: Ascus/HPV negative. Urine test in office = Negative Procedure: During the procedure, the following steps were performed: A speculum was inserted, and acetic acid was applied. Colposcopy was conducted, allowing visualization of the transformation zone. Acetowhite lesions were identified at the 7 o'clock position. Cervical biopsies were obtained from the 7 o'clock position, followed by an endocervical curettage (ECC). Vaginoscopy of the upper vagina revealed no evidence of aceto-white lesions. Hemostasis was achieved using Monsel solution, and the patient tolerated the procedure well. Post-Procedure Instructions: The patient was advised to promptly contact the office or the after hours answering service or go to the emergency room if experiencing a temperature exceeding 100.4?F, abdominal pain, nausea/vomiting, or bleeding. Additionally, the patient was instructed to abstain from vaginal intercourse and bathtub use. The patient confirmed understanding of these instructions. Discharge Instructions: The patient was instructed to schedule a follow-up appointment in 2 weeks for further evaluation and management. Please note that this note was generated using a voice recognition program, and errors may have occurred during farm owner operator. 44829-[id number] of cervix including upper vagina with biopsy and ECC Procedure code (CPT) selection complete Results AMB Test Urine AMB Test Urine Negative Last Edit by Moira Hoskins CMA on 04/19/24 09:01 Results Reviewed Results Reviewed: Laboratory Last Values Tst Clinic Negative 04/19/24 09:01 Assessment & Plan Assessment & Plan (1) ASCUS of cervix with negative high risk HPV: Code(s): R87.610 - Atypical squamous cells of undetermined significance on cytologic smear of cervix (ASC-US) Category: Medical Plan: Discussed with the patient the result of her abnormal pap, its significance, risk of progression, persistence, and regression. the false positive/negative rate of a Pap smear as a screening test in detecting cervical cancer and the indication for a diagnostic test -colposcopy, biopsy, endocervical curettage. The patient verbalized understanding and agreed with the plan, all questions answered. Colpo/biopsy/ECC done, see procedure note Orders: Orders AMB Colposcopy Today R87.610 - Atypical squamous cells of undetermined significance on cytologic smear of cervix (ASC-US) AMB HCG Urine Test Today Z32.02 - Encounter for test, result negative Coding Level of Care Code Procedure Only Diagnoses ASCUS of cervix with negative high risk HPV R87.610 CPT Codes Colposcopy - CPT: 08195-[id number] of cervix including upper vagina with biopsy and ECC ([id number])
[2024-04-19 08:51] VITALS: BP 110/72; BMI 34.2
== END 2024-04-19 09:33 | disposition home or self-care (01) ==
LOC: HO.HWS 08:47
PROVIDERS: PCP Family Medicine; Visit Provider Obstetrics & Gynecology
DX: R87.610 Atypical squamous cells of undetermined significance on cytologic smear of cervix (ASC-US) (principal); Z32.02 Encounter for pregnancy test, result negative
CPT/HCPCS: 57454

== ENCOUNTER 2024-05-08 15:29 | Emergency (ER) | payer OTHER, SELFPAY ==
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
[2024-05-08 15:35] VITALS: BP 112/76; BP 118/78; PULSE 104; PULSE 109; RESP 18; TEMP 36.9; O2SAT 97; BMI 34.9
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
[2024-05-08] MEDS: Acetaminophen 325 MG TABLET 975 MG PO (17:27)
[2024-05-08 17:47] VITALS: BP 139/63; PULSE 91; RESP 20; TEMP 36.5; O2SAT 97
[2024-05-08] MEDS: Ibuprofen 600 MG TABLET PO (21:08)
[2024-05-08 21:48] VITALS: BP 128/72; PULSE 97; RESP 18; TEMP 36.8; O2SAT 97
[2024-05-08 21:53] VITALS: BP 128/72; PULSE 97; RESP 18; TEMP 36.8; O2SAT 97
== END 2024-05-08 21:53 | disposition home or self-care (01) ==
PROVIDERS: Emergency Provider Emergency Medicine Emergency Medical Services; PCP Family Medicine
DX: S00.93XA Contusion of unspecified part of head, initial encounter (principal); S46.911A Strain of unspecified muscle, fascia and tendon at shoulder and upper arm level, right arm, initial encounter; M54.2 Cervicalgia; M25.511 Pain in right shoulder; R07.81 Pleurodynia; R51.9 Headache, unspecified; V43.62XA Car passenger injured in collision with other type car in traffic accident, initial encounter; Y93.9 Activity, unspecified; Y92.410 Unspecified street and highway as the place of occurrence of the external cause; Y99.8 Other external cause status
CPT/HCPCS: 70450; 71101; 72125; 73030; 99284

== ENCOUNTER → 2024-05-08 16:59 | Outpatient (BNV) | payer OTHER, SELFPAY | PROVIDERS: Emergency Provider Emergency Medicine Emergency Medical Services; PCP Family Medicine; Visit Provider Radiology Diagnostic Radiology | DX: S19.9XXA Unspecified injury of neck, initial encounter (principal); R51.9 Headache, unspecified; R07.82 Intercostal pain; M25.511 Pain in right shoulder | CPT/HCPCS: 70450; 71101; 72125; 73030 ==

== ENCOUNTER 2024-05-18 10:56 | Outpatient (AMB) | payer OTHER, SELFPAY ==
--- NOTE | 2024-05-18 10:58 | A.OFFVIS_ITS ---
Intake Visit Reasons: Colpo Results Rn Palliative Care Required: Yes Rn Palliative Care Language: Fender Repairer Services: Rn Palliative Care Present (in person) Rn Palliative Care Name: Moira JESSIKA Hoskins Information Interpreted: non-clinical & clinical Asphalt Paving Foreman: Asphalt Paving Foreman Present (JESSIKA Portillo) Accompanied by: Self / Same As Patient Allergies No Known Allergies Allergy (Verified 05/18/24 11:02) HPI Comments Details: Presenting post colpo for follow-up. The patient is doing well with no complaints. The pathology showed the following: A. Endocervix, curettage: Fragments of inflamed cervical transformation zone, endocervical and squamous mucosa with reactive changes. B. 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 Dysplasia of cervix, low grade (OLAYINKA 1) Migraine Surgical History History of surgery of uterus Hx of tubal ligation Family History Mother Fibromyalgia Father HTN (hypertension) Maternal Grandmother Uterine cancer Sister Uterine cancer Social History Alcohol intake: never Comment: medicated in pacu Patient Tobacco Use Status: Never used Tobacco Second Hand Smoke Exposure: No Gender identity: Female Female Reproductive History Menstrual Age of Menarche: 18 Review of Systems Const All systems reviewed & are unremarkable except as noted in HPI and below Reports as per HPI and Reports no additional complaints GI Reports no additional complaints Reports no additional complaints Assessment & Plan Assessment & Plan (1) ASCUS of cervix with negative high risk HPV: Code(s): R87.610 - Atypical squamous cells of undetermined significance on cytologic smear of cervix (ASC-US) Category: Medical Plan: Discussed with the patient the pathology results of the colposcopy biopsies & endocervical curettage (negative pathology). Discussed with the patient the sensitivity specificity, positive and negative predictive value in detecting cervical cancer in addition discussed the regression, persistence and progression rates. Recommended co-testing in 12 months, if cytology and or HPV are abnormal will proceed was colposcopy biopsy and endocervical curettage. Instructions given to the patient to schedule a co test appointment in 1 year. All questions answered the patient verbalized understanding. Coding Level of Care Code Est Pt Level 3 (63221) Diagnoses ASCUS of cervix with negative high risk HPV R87.610
--- OUTSIDE RECORDS SUMMARY | 2024-05-18 12:16 | XMS_ITS | Encounter Summary ---
Author Organization [employer] [facility] Address [address] [facility] [address] [place] [address] Care Team Providers Care Aircraft Power Plant Assembler Name Role Phone Delilah Bridges MD Primary Care Provider [phone]- [phone] Sharifa Duncan MD Unavailable Tiffany Smith Unavailable Lito Rodas MD Unavailable Reason for Visit * Reason Onset Date Comments Med Refill 05/15/2024 Encounter Details Date Type Department Care Team (Late st Contact Info) Description 05/15/2024 Refill [facility] MEDICINE [address] [place], [place] [phone] Delilah Bridges MD [address] [place], [place] [phone] Right maxillary sinusitis; Mild asthma, unspecified whether complicated, unspecified whether persistent; Major depressive disorder with current active episode, unspecified depression episode severity, unspecified whether recurrent Social History Tobacco Use Types Packs/Day Years Used Date Smoking Tobacco: Never Passive Smoke Exposure: Never Smokeless Tobacco: Never Alcohol Use Standard Drinks/Week Comments Never 0 (1 standard drink = 0.6 oz pur e alcohol) Depression Answer Date Recorded Patient Health Questionnaire-9 Score 11 05/15/2024 Patient Health Questionnaire-9 Score 11 05/15/2024 Last PHQ-9: Questionnaire Data Not on file 0 05/15/2024 Housing Stability Answer Date Recorded What is your housing situation today? I am not s ure 05/17/[address] you li ve. Do you have problems with any of the following? None of the above 05/17/2024 Food Insecurity Answer Date Recorded Within the past 12 months, y ou worried that your food would run out before you got money to buy more: Never True 05/17/2024 Within the past 12 months,th e food you bought just didn't last and you didn't have enough money to get more: Never True 03/2024 Transportation Answer Date Recorded In the past [...] Answer Date Recorded Patient Health Questionnaire-2 Score 4 05/15/2024 Internet Access Answer Date Recorded Internet Access Q1 No 05/17/2024 Internet Access Q2 I do not want or need it 03/2024 Comments Unknown Sex and Gender Information Value Date Recorded Sex Assigned at Female 12/15/2021 10:19 AM EDT Legal Sex Female 10:19 AM EDT Gender Identity Female 12/15/2021 10:19 AM EDT Sexual Orientation Straight 12/15/2021 10 :19 AM EDT documented as of this encounter Plan of Treatment Upcoming Encounters Date Type Department Care Team (Late st Contact Info) Description 07/17/2024 11:30 AM EDT Office Visit [facility] MEDICINE [address] [place] [phone] Delilah Bridges MD [address] [place] [phone] documented as of this encounter Visit Diagnoses Diagnosis Right maxillary sinusitis Mild asthma, unspecified whether complicated, unspecified whether persistent Major depressive disorder with current active episode, unspecified depression episode severity, unspecified whether recurrent documented in this encounter Additional Health Concerns Assessment Noted Time PHQ-9 Depression Total Score: 11 025 11:57 AM EDT documented as of this encounter Care Teams Aircraft Power Plant Assembler Relationship Specialty Start Date End Date Delilah Bridges MD [address] [place] [phone] PCP - General Family Medicine 02/15/18 Sharifa Duncan MD [address] [phone] Sleep Medicine 01/24/24 Tiffany Smith [address] [place] [address] [phone] Gynecology 03/30/24 Lito Rodas MD [address] [place] [address] [place] [phone] Obstetrics and Gynecology 04/20/24 documented as of this encounter
--- OUTSIDE RECORDS SUMMARY | 2024-05-18 12:16 | XMS_ITS | Encounter Summary ---
Author Organization [employer] [facility] Address [address] [facility] [address] [place] [address] Care Team Providers Care Hot Molder Name Role Phone Delilah Bridges MD Primary Care Provider [phone]- [phone] Sharifa Duncan MD Unavailable Tiffany Smith Unavailable Lito Rodas MD Unavailable Encounter Details Date Type Department Care Team (Latest Contact Info) Description 05/15/2024 Travel Social History Tobacco Use Types Packs/Day [...] before you got money to buy more: Sometimes True 2024 Within the past 12 months,th e food you bought just didn't last and you didn't have enough money to get more: Never True 05/15/2024 Transportation Answer Date Recorded In the past [...] Description 07/17/2024 11:30 AM EDT Office Visit [facility] MEDICINE [address] [place] [phone] Delilah Bridges MD [address] [place] [phone] documented as of this encounter Visit Diagnoses Not on filedocumented in this encounter Additional Health Concerns Assessment Noted Time PHQ-9 Depression Total Score: 11 025 11:57 AM EDT documented as of this encounter Care Teams Hot Molder Relationship Specialty Start Date End Date Delilah Bridges MD [address] [place] [address] PCP - General Family Medicine 02/15/18 Sharifa Duncan MD [address] [facility] [address] [place] [address] Sleep Medicine 01/24/24 Tiffany Smith [address] [place] [phone] Gynecology 03/30/24 Lito Rodas MD [address] [place] [phone] Obstetrics and Gynecology 04/20/24 documented as of this encounter
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
--- OUTSIDE RECORDS SUMMARY | 2024-05-18 12:16 | XMS_ITS | Encounter Summary ---
Author Organization [employer] [facility] Address [address] [facility] 7t [place] [address] Care Team Providers Care Clinching Machine Operator Name Role Phone Delilah Bridges MD Primary Care Provider +1- [phone] Sharifa Duncan MD Unavailable Tiffany Smith Unavailable Lito Rodas MD Unavailable Encounter Details Date Type Department Care Team (Latest Contact Info) Description 05/17/2024 Travel Social History Tobacco Use Types Packs/Day [...] Description 07/17/2024 11:30 AM EDT Office Visit [facility] [address] [place] [address] Delilah Bridges MD [address] [place] [address] documented as of this encounter Visit Diagnoses Not on filedocumented in this encounter Additional Health Concerns Assessment Noted Time PHQ-9 Depression Total Score: 11 025 11:57 AM EDT documented as of this encounter Care Teams Clinching Machine Operator Relationship Specialty Start Date End Date Delilah Bridges MD [address] [place] [address] PCP - General Family Medicine 02/15/18 Sharifa Duncan MD [address] [facility] [address] [place] [address] Sleep Medicine 01/24/24 Tiffany Smith [address] [address] Gynecology 03/30/24 Lito Rodas MD [address] [place] [address] Obstetrics and Gynecology 04/20/24 documented as of this encounter
--- OUTSIDE RECORDS SUMMARY | 2024-05-18 12:16 | XMS_ITS | Encounter Summary ---
Author Organization [employer] [facility] Address [address] [facility] 7t [place] [address] Care Team Providers Care Tunnel Elastic Operator Zigzag Name Role Phone Delilah Bridges MD Primary Care Provider +1- [phone] Sharifa Duncan MD Unavailable Tiffany Smith Unavailable Lito Rodas MD Unavailable Reason for Visit * Reason Comments Med Refill Encounter Details Date Type Department Care Team (Late st Contact Info) Description 04/29/2024 Refill [facility] [address] [place], [place] [phone] Marbella Alcaraz MD [address] [place], [place] [phone] Social History Tobacco Use Types Packs/Day Years [...] Description 07/17/2024 11:30 AM EDT Office Visit [facility] [address] [place] [address] Delilah Bridges MD [address] [place] [phone] documented as of this encounter Visit Diagnoses Not on filedocumented in this encounter Additional Health Concerns Assessment Noted Time PHQ-9 Depression Total Score: 6 06/30/19 24 11:22 AM EDT documented as of this encounter Care Teams Tunnel Elastic Operator Zigzag Relationship Specialty Start Date End Date Delilah Bridges MD [address] [place] [address] PCP - General Family Medicine 02/15/18 Sharifa Duncan MD 100 [facility] [address] [place] [address] Sleep Medicine 01/24/24 Tiffany Smith [address] [place] [phone] Gynecology 03/30/24 Lito Rodas MD [address] [place] [address] Obstetrics and Gynecology 04/20/24 documented as of this encounter
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
--- OUTSIDE RECORDS SUMMARY | 2024-05-18 12:16 | XMS_ITS | Encounter Summary ---
Author Organization [employer] [facility] Address [address] [facility] 7t [place] [address] Care Team Providers Care Auxiliary Engineer Name Role Phone Delilah Bridges MD Primary Care Provider +1- [phone] Sharifa Duncan MD Unavailable Tiffany Smith Unavailable Lito Rodas MD Unavailable Encounter Details Date Type Department Care Team (Late st Contact Info) Description 05/17/2024 Telephone [facility] [address] [place], [place] [phone] Delilah Bridges MD [address] [place], [place] [phone] Social History Tobacco Use Types Packs/Day Years [...] encounter Miscellaneous Notes * Telephone Encounter - Delilah Bridges MD - 05/17/2024 10:19 AM EDT Please start PA for zepbound. Thank you. documented in this encounter Plan of Treatment Upcoming Encounters Date Type Department Care Team (Late st Contact Info) Description 07/17/2024 11:30 AM EDT Office Visit [facility] [address] [place] [address] Delilah Bridges MD [address] [place] [address] documented as of this encounter Visit Diagnoses Not on filedocumented in this encounter Additional Health Concerns Assessment Noted Time PHQ-9 Depression Total Score: 11 025 11:57 AM EDT documented as of this encounter Care Teams Auxiliary Engineer Relationship Specialty Start Date End Date Delilah Bridges MD [address] [place] [address] PCP - General Family Medicine 02/15/18 Sharifa Duncan MD [address] [address] Sleep Medicine 01/24/24 Tiffany Smith [address] [place] [address] Gynecology 03/30/24 Lito Rodas MD [address] [place] [address] [place] [address] Obstetrics and Gynecology 04/20/24 documented as of this encounter
--- OUTSIDE RECORDS SUMMARY | 2024-05-18 12:16 | XMS_ITS | Clinical Summary ---
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 cervical lordosis, likely positional. Vertebral body heights are maintained. No significant degenerative changes. Skull base and intracranial structures appear normal. The visualized paravertebral soft tissues appear unremarkable. IMPRESSION: 1. No evidence of acute injury to the cervical spine. This document has been electronically signed by: Trevor Moon MD on 05/08/2024 18:20:37 Dictated By: Trevor Moon MD Signed By: <Electronically signed by Trevor Moon MD in OV> 05/08/241820 DD/ 19 TD/TT: 05/08/241819 Client Finance Analyst: [facility] External Provider IMG CT PROCEDURES Final Result * Hematoxylin and Eosin Stain (04/19/2024 9:00 AM EST) 04/19/2024 9:00 AM EST 04/20/2024 8:23 AM EST [facility] - 04/21/2024 5:26 PM EST ----- ------- Name: Enoch Nolasco ?Age/Sex: 38/F ? : 1985 Unit#: [id number] ?? Attend Dr: Lito Rodas MD ?Re04/19/24 ?Status: DEP REF ? Location: HO.LNP ?Disch: ? ----- ------- SPEC : [id number] ? RECD: 04/20/24 ? STATUS: ??SOUT ? REQ NUM: [id number] ? LAN: 04/19/24 ? SUBM DR: Lito Rodas MD ? ENTERED: ??04/20/24 ?SP TYPE: Surgical ? OTHR DR: Delilah Bridegs MD ? ORDERED: ??HE Stain/5, Gross Micro L4/2 ? Diagnosis ?? A. ??Endocervix, curettage: ??Fragments of inflamed cervical transformation zone, ?? endocervical and squamous mucosa with reactive changes. ? B. ??Cervix, 7 o'clock, biopsy: ??Inflamed squamous mucosa with reactive changes; ?? endocervical epithelium within normal limits. ? COMMENT: The findings are concordant with the patient's recent Pap/cytology specimen ?? ([id number]; ASCUS with negative HPV) - slide reviewed. ?Clinical History ASCUS of cervix with negative HPV ?Microscopic Description A, B. ??Microscopic sections reviewed. ? Material Received ?? A. ECC ?? B. Cx bx 7 o'clock ? Gross Description Received in two parts. Part A: ??Received in formalin labeled ?ECC? is a 1.0 x 0.8 x 0.35 cm aggregate of predominantly mucus and blood and threads of olsen tissue, submitted in toto in a cassette labeled A. Part B: ??Received in formalin labeled ?cx bx 7? is a 0.5 cm rubbery, obrien-white wedge-shaped fragment of mucosa, submitted in toto in a cassette labeled B. CEDS Copies To: ?? Delilah Bridges MD ?? [facility] ?? [address] ?? [place] [address] ?? [phone] ? CONTINUED ON NEXT PAGE ----- ------- Name: NolascoСергейchloe ?Age/Sex: 38/F ? : 1985 Unit#: [id number] ?? Attend Dr: Lito Rodas MD ?Re04/19/24 ?Status: DEP REF ? Location: HO.LNP ?Disch: ? ----- ------- SPEC : [id number] ? RECD: 04/20/24 ? STATUS: ??SOUT ? REQ NUM: [id number] ? LAN: 04/19/24 ? SUBM DR: Lito Rodas MD ? ENTERED: ??04/20/24 ?SP TYPE: Surgical ? OTHR DR: Delilah Bridges MD ? ORDERED: ??HE Stain/5, Gross Micro L4/2 ? Copies To: ??(Continued) ?? Lito Rodas MD ?? [facility] ?? [address] ?? [place] [address] ?? [phone] ----- ------- Signed (signature on file) Twin Simpson MD 04/21/24 5607 ? ----- ------- ? END OF REPORT ? us Generic External Data Provider LAB BLOOD ORDERAB LES Final Result [facility] [address] [place] [address] [phone] * (ABNORMAL) Bacterial Vaginosis (03/29/2024 12:00 AM EST) TRICHOMONAS VAGINALIS DETECTION BY PCR NOT DETECTED Not Detect [facility] BACTERIAL VAGINOSIS DETECTION BY PCR POSITIVE(A) Negative [facility] Comment:The BV organism targ ets of [...] DETECTION BY PCR NOT DETECTED Not Detect [facility] Janet glab krusei PCR NOT DETECTED Not Detect [facility] 03/29/2024 03/29/2024 us Generic External Data Provider LAB MICROBIOLOGY - GENERAL ORDERABLES Final Result [facility] [address] [place] [address] [phone] * Chlamydia/N. Gonorrhoeae RNA, TMA, Urogenitial (03/29/2024 12:00 AM EST) CT PCR NOT DETECTED Not Detect. [facility] Comment:A not detected test result does [...] psychologicalconsequences. NG PCR NOT DETECTED Not Detect. [facility] Comment:A not detected test result does [...] medical, social or psychologicalconsequences. 03/29/2024 03/29/2024 Narrative [facility] - 03/30/2024 6:47 AM EST Vaginal Generic External Data Provider LAB MICROBIOLOGY - GENERAL ORDERABLES Final Result [facility] [address] [place] [phone] * POCT , urine manually resulted [...] 12:38 PM EDT) Triglycerides 90 <150 mg/dL [facility] Comment:Desirable Triglyceri de: less than 150 mg/dLBorderline High Triglyceride 150-199 mg/dLHigh Triglyceride: 200-499 mg/dLVery High Triglyceride: greater than or equal to 5OO mg/dL Cholesterol 168 <200 mg/dL [facility] Comment:Desirable Cholestero l: less than 200 mg/dLBorderline High Cholesterol: 200-239 mg/dLHigh Cholesterol: greater than 239 mg/dL LDL Cholesterol Calculated 114(H) <100 mg/dL [facility] Comment:Desirable LDL: less than 100 mg/dLNear Optimal/Above Optimal LDL: 110- 129 mg/dLBorderline High LDL: 130-159 mg/dLHigh LDL: 160-189 mg/dLVery High LDL: greater than or equal to 190 mg/dL HDL Cholesterol 36(L) >40 mg/dL [facility] Comment:Desirable HDL: great er than 40 mg/dL Note: This HDL assay may give artificially low results in patients with liver disease. Blood Venous blood specimen / Unknown 10/06/2023 12:38 PM EDT 10/06/2023 1:09 PM EDT us Delilah Bridges MD LAB BLOOD ORDERABLES Final Result [facility] [address] [place] [phone] * Pap Smear (09/10/2022 2:32 PM EDT) 09/10/2022 2:32 PM EDT 09/15/2022 9:15 AM EDT Narrative [facility] - 10/07/2022 9:24 AM EDT ----- ------- Name: Enoch Nolasco ?Age/Sex: 36/F ? : 1985 Unit#: [id number] ?? Attend Dr: Lito Rodas MD ?Re09/10/22 ?Status: DEP REF ? Location: HO.LNP ?Disch: ? ----- ------- SPEC : [id number] ?RECD: 09/15/22 ? STATUS: ??SOUT ? REQ NUM: [id number] ? LAN: 09/10/22-630 ? SUBM DR: Lito Rodas MD ? [...] 66, 68) ?? HPV testing performed by [facility], [place], [place]. ??See reference laboratory ?? pion of the EMR for entire report. ?Clinical Information LMP: 09/03/22 Previous PAP test: 09/06/21, OLAYINKA III ? Material Received ?? ThinPrep-Cervical Copies To: ?? Delilah Bridges MD ?? [address] ?? [place] [address] ? Lito Rodas MD ?? [address] [facility] ?? [place] [address] ?? [phone] ----- ------- Signed (signature on file) ARNOLD Laughlin (ASCP) 10/07/22 0924 ? ----- ------- ? END OF REPORT ? Result [facility] External Provider LAB CYT OLOGY ORDERABLES Final Result Performing Organization Address [facility] Co de Phone Number [facility] [address] [place] [address] [phone] * Hepatitis C Antibody with Reflex to HCV, RNA, Quantitative, Real-Time PCR (04/30/2022 1:20 PM EDT) Pathologist [facility] Hepatitis C Antibody NON-REACT JOAQUÍN NON-REACT JOAQUÍN [facility] Index 0.05 <1.00 [facility] Comment: HCV antibody was non-reactive. There is no laboratory evidence of HCV infection. In most cases, no further action is required. However, if recent HCV exposure is suspected, a test for HCV RNA (test code 30497) is suggested. For additional information please refer to http://education.[employer]/faq/ZNY58k5 (This link is being provided for informational/ educational purposes only.) Blood Venous blood specimen / Unknown 04/30/2022 1:20 PM EDT 04/30/2022 1:21 PM EDT Narrative [facility] - 05/05/2022 12:29 AM EDT FASTING:YES FASTING: YES Result [facility] Delilah Bridges MD LAB BLOOD ORDERABLES Final Result Performing Organization Address [facility] Co de Phone Number [facility] [address] [facility], [place] [address] [facility] [address] [place] [address] * HIV-1/2 Antigen and Antibodies, Fourth Generation, with Reflexes (04/30/2022 1:20 PM EDT) [facility] HIV Antigen/Antibody, 4th Generation NON-REAC TIVE NON-REAC TIVE [facility] Comment: HIV-1 antigen and HIV-1/HIV-2 antibodies were [...] ?? For additional information please refer to http://Tweekaboo.[employer]/faq/TUM067 (This link is being provided for informational/ educational purposes only.) The performance of this assay has not been clinically validated in patients less than 2 years old. Blood Venous blood specimen / Unknown 04/30/2022 1:20 PM EDT 04/30/2022 1:21 PM EDT Narrative [facility] - 05/05/2022 12:29 AM EDT FASTING:YES FASTING: YES Delilah Bridges MD LAB BLOOD ORDERABLES Final Result [facility] [address], [place] [address] [facility] [address] [place] [address] * HPV E6/E7 RFLX DIRK 16 18/45 (09/08/2021 2:01 PM EDT) HPV 16 RNA [facility] HPV 18/45 RNA [facility] HPV E6 E7 ADD [facility] HPV mRNA E6/E7 rflx Not Detected Not Detected [facility] Comment: Methodology: V Belt Curer-Mediated Amplification This assay detects E6/E7 viral messenger RNA (mRNA) from 14 high-risk HPV types (16,18,31,33,35,39,45,51,52,56,58,59,66,68). Cervical sources are required for HPV testing. If a vaginal source from a patient who has had a total hysterectomy with removal of cervix was submitted, please contact the testing laboratory for alternative testing options. For additional information, please refer to http://Tweekaboo.[employer]/faq/RQW795m6 (This link if provided for information/ educational purposes only.) THIS TEST WAS PERFORMED AT: [facility] [address] [facility] [address] [place], [place] ??[phone] TEODORO SCHNEIDER MD 09/08/2021 2:01 PM EDT us Lito Rodas MD HISTORICAL/NON ORDERABLE LABS Fi nal Result [facility] [address] from Last 3 Months or Most Recently Relevant to Health Maintenance Insurance [facility] C3 [facility] MEDICAID STAND [employer] Advance Directives Documents on File Type Date Recorded Patient Garment Sewer Hand Expl anation Advance Directives and Living Will 06/30/2023 Health Care Proxy 06/30/23 Care Teams Mult Au Matic Operator Relationship Specialty Start Date End Date Cyrus, MD Delilah [address] [place] [address] PCP - General Family Medicine 02/15/18 Sharifa Duncan MD [address] [address] Sleep Medicine 01/24/24 Tiffany Smith [address] [place] [address] Gynecology 03/30/24 Lito Rodas MD [address] [place] [address] [place] [phone] Obstetrics and Gynecology 04/20/24
--- OUTSIDE RECORDS SUMMARY | 2024-05-18 12:16 | XMS_ITS | Encounter Summary ---
Author Organization [employer] [facility] Address [address] [place] [address] Care Team Providers Care Spice Mixer Name Role Phone Delilah Bridges MD Primary Care Provider [phone] Sharifa Duncan MD Unavailable Tiffany Smith Unavailable Lito Rodas MD Unavailable Reason for Visit * Reason Onset Date Comments Nurse Triage 03/23/2023 Encounter Details Date Type Department Care Team (Late st Contact Info) Description 03/23/2023 Telephone [facility] [address] [place] [address] Delilah Bridges MD [address] [place] [address] Nurse Triage Social History Tobacco Use Types Packs/Day Years Used Date Smoking Tobacco: Never Passive Smoke Exposure: Never Smokeless Tobacco: Never Alcohol Use Standard Drinks/Week Comments Never 0 (1 standard drink = 0.6 oz pur e alcohol) Depression Answer Date Recorded Patient Health Questionnaire-9 Score 3 04/29/2022 Housing Stability Answer Date Recorded What is your housing situation today? I have sarah lorena 12/02/[address] you li [...] 03/23/2023 1:38 PM EST Triage call with [facility] Intermission Coordinator ID [id number]. Pt reports a lump greater than the size of ping pong ball has erupted on the middle of forehead over night. Pt reports some redness, warm to touch but, not painful. Pt reports it has a feeling of pressure and has been having headaches. Pt has hx of bells palsy for 7 years. Pt is advised to come to [facility] today , open till 8pm, for [...] accepted this outcome Please contact pt at [phone] (arabic) documented in this encounter Plan of Treatment Upcoming Encounters Date Type Department Care Team (Late st Contact Info) Description 07/17/2024 11:30 AM EDT Office Visit [facility] [address] [place] [address] Delilah Bridges MD [address] [place] [address] documented as of this encounter Visit Diagnoses Not on filedocumented in this encounter Additional Health Concerns Assessment Noted Time PHQ-9 Depression Total Score: 3 04/30/19 23 11:45 AM EDT documented as of this encounter Care Teams Spice Mixer Relationship Specialty Start Date End Date Delilah Bridges MD [address] [place] [address] PCP - General Family Medicine 02/15/18 Sharifa Duncan MD [address] [address] Sleep Medicine 01/24/24 Tiffany Smith [address] [place] [phone] Gynecology 03/30/24 Lito Rodas MD [address] [place] [address] [place] [phone] Obstetrics and Gynecology 04/20/24 documented as of this encounter
--- OUTSIDE RECORDS SUMMARY | 2024-05-18 12:16 | XMS_ITS | Encounter Summary ---
Author Organization [employer] [facility] Address [address] [place] [address] 7t [place] [address] Care Team Providers Care Supervisor Drawing Name Role Phone Delilah Bridges MD Primary Care Provider Sharifa Duncan MD Unavailable BentleyTiffany Covarrubias Unavailable Lito Rodas MD Unavailable Encounter Details Date Type Department Care Team (Late st Contact Info) Description 03/26/2022 Abstract [facility] [address] [place] [address] [phone] Delilah Bridges MD [address] [place] [address] [phone] Social History Tobacco Use Types Packs/Day Years [...] Description 07/17/2024 11:30 AM EDT Office Visit [facility] [address] [place] [address] [phone] Delilah Bridges MD [address] [place] [address] [phone] documented as of this encounter Procedures Procedure Name Priority Date/Time Associated Diagnosis Comments PAP SMEAR Routine 09/08/2021 12:00 AM EDT documented in this encounter Results * Pap Smear (09/08/2021 12:00 AM EDT) Swab us Historical Provider LAB CYTOLOGY ORDERABLES F inal Result IMAGING documented in this encounter Visit Diagnoses Not on filedocumented in this encounter Care Teams Supervisor Drawing Relationship Specialty Start Date End Date Delilah Bridges MD [address] [place] [phone] PCP - General Family Medicine 02/15/18 Sharifa Duncan MD [address] [address] Sleep Medicine 01/24/24 Tiffany Smith [address] [place] [address] Gynecology 03/30/24 Lito Rodas MD [address] [place] [address] Obstetrics and Gynecology 04/20/24 documented as of this encounter
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
--- OUTSIDE RECORDS SUMMARY | 2024-05-18 12:16 | XMS_ITS | Encounter Summary ---
Author Organization [employer] [facility] Address [address] [facility] 7t [place] [address] Care Team Providers Care Editor Name Role Phone Delilah Bridges MD Primary Care Provider +1- [phone] Sharifa Duncan MD Unavailable Tiffany Smith Unavailable Lito Rodas MD Unavailable Reason for Visit * Reason Onset Date Comments Nurse Triage 06/08/2023 Encounter Details Date Type Department Care Team (Late st Contact Info) Description 06/08/2023 Telephone [facility] [address] [place] [address] Delilah Bridges MD 230 [place], [place] [phone] Nurse Triage Social History Tobacco Use Types [...] 06/08/2023 4:28 PM EDT Triage call with [employer] [place] [id number] Pt reports migraine which is of chronic [...] accepted this outcome Please contact pt at [phone] documented in this encounter Plan of Treatment Upcoming Encounters Date Type Department Care Team (Late st Contact Info) Description 07/17/2024 11:30 AM EDT Office Visit [facility] [address] [place] [address] Delilah Bridges MD [address] [place] [address] documented as of this encounter Visit Diagnoses Not on filedocumented in this encounter Additional Health Concerns Assessment Noted Time PHQ-9 Depression Total Score: 3 04/30/19 11:45 AM EDT documented as of this encounter Care Teams Editor Relationship Specialty Start Date End Date Delilah Bridges MD 230 [place] [address] PCP - General Family Medicine 02/15/18 Sharifa Duncan MD [address] [address] Sleep Medicine 01/24/24 Tiffany Smith [address] [place] [address] Gynecology 03/30/24 Lito Rodas MD [address] [place] [address] [place] [address] Obstetrics and Gynecology 04/20/24 documented as of this encounter
--- OUTSIDE RECORDS SUMMARY | 2024-05-18 12:16 | XMS_ITS | Encounter Summary ---
Author Organization [facility] Address [address] [facility] 7t [place] [address] Care Team Providers Care Cath Lab Radiology Technician Name Role Phone [place], Delilah ANDRE Primary Care Provider +1- [phone] Sharifa Duncan MD Unavailable Tiffany Smith Unavailable Lito Rodas MD Unavailable Reason for Visit * Reason Onset Date Comments Med Refill 09/27/2023 Encounter Details Date Type Department Care Team (Late st Contact Info) Description 09/27/2023 Refill [facility] ADULT DENTAL [address] [place] [address] Eliezer Urbina, AIME [address] [place] [address] Dental caries Social History Tobacco Use Types [...] Description 07/17/2024 11:30 AM EDT Office Visit [facility] MED[facility]INE [address] [place] [address] Delilah Bridges MD [address] [place] [address] documented as of this encounter Visit Diagnoses Diagnosis Dental caries Unspecified dental caries documented in this encounter Additional Health Concerns Assessment Noted Time PHQ-9 Depression Total Score: 6 06/30/19 24 11:22 AM EDT documented as of this encounter Care Teams Cath Lab Radiology Technician Relationship Specialty Start Date End Date Delilah Bridges MD [address] [place] [address] PCP - General Family Medicine 02/15/18 Sharifa Duncan MD [address] [address] Sleep Medicine 01/24/24 BartholomewTiffany pascal [address] [place] [address] Gynecology 03/30/24 Lito Rodas MD [address] [place] [address] [place] [address] Obstetrics and Gynecology 04/20/24 documented as of this encounter
== END 2024-05-18 11:14 | disposition home or self-care (01) ==
LOC: HO.HWS 10:56
PROVIDERS: PCP Family Medicine; Visit Provider Obstetrics & Gynecology
DX: R87.610 Atypical squamous cells of undetermined significance on cytologic smear of cervix (ASC-US) (principal)
CPT/HCPCS: 99213

== ENCOUNTER → 2024-05-18 10:56 | Outpatient (BNVA) | payer OTHER, SELFPAY | PROVIDERS: PCP Family Medicine; Visit Provider Obstetrics & Gynecology ==

== ENCOUNTER 2024-05-18 11:24 | Outpatient (REF) | payer OTHER, SELFPAY ==
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
--- OUTSIDE RECORDS SUMMARY | 2024-05-18 12:41 | XMS_ITS | Encounter Summary ---
Author Organization [facility] Address [address] [place] [address] 7t [place] [address] Care Team Providers Care Pickle Processor Name Role Phone Delilah Bridges MD Primary Care Provider Sharifa Duncan MD Unavailable Tolovana ParkTiffany Covarrubias Unavailable Lito Rodas MD Unavailable Encounter Details Date Type Department Care Team (Late st Contact Info) Description 03/26/2022 Abstract [facility] [address] [place] [address] [phone] Deillah Bridges MD [address] [place] [address] [phone] Social History Tobacco Use Types Packs/Day Years [...] 11:30 AM EDT Office Visit [facility] [address] [place] [address] [phone] Delilah Bridges MD [address] [place] [address] [phone] documented as of this encounter Procedures Procedure Name Priority Date/Time Associated Diagnosis Comments PAP SMEAR Routine 09/08/2021 12:00 AM EDT documented in this encounter Results * Pap Smear (09/08/2021 12:00 AM EDT) Swab us Historical Provider LAB CYTOLOGY ORDERABLES F inal Result IMAGING documented in this encounter Visit Diagnoses Not on filedocumented in this encounter Care Teams Pickle Processor Relationship Specialty Start Date End Date Delilah Bridges MD [address] [place] [phone] PCP - General Family Medicine 02/15/18 Sharifa Duncan MD [address] [address] Sleep Medicine 01/24/24 Tiffany Smith [address] [place] [address] Gynecology 03/30/24 Lito Rodas MD [address] [place] [address] Obstetrics and Gynecology 04/20/24 documented as of this encounter
--- OUTSIDE RECORDS SUMMARY | 2024-05-18 12:41 | XMS_ITS | Encounter Summary ---
Author Organization [facility] Address [address] [facility] 7t [place] [address] Care Team Providers Care Telemetry Tech Name Role Phone Delilah Bridges MD Primary Care Provider +1- [phone] Sharifa Duncan MD Unavailable Tiffany Smith Unavailable [...] Description 07/17/2024 11:30 AM EDT Office Visit [facility] [address] [place] [address] Delilah Bridges MD [address] [place] [address] documented as of this encounter Visit Diagnoses Not on filedocumented in this encounter Additional Health Concerns Assessment Noted Time PHQ-9 Depression Total Score: 11 025 11:57 AM EDT documented as of this encounter Care Teams Telemetry Tech Relationship Specialty Start Date End Date Delilah Bridges MD [address] [place] [address] PCP - General Family Medicine 02/15/18 Sharifa Duncan MD 100 [facility] [address] [place] [address] Sleep Medicine 01/24/24 Tiffany Smith [address] [address] Gynecology 03/30/24 Lito Rodas MD [address] [place] [address] Obstetrics and Gynecology 04/20/24 documented as of this encounter
--- OUTSIDE RECORDS SUMMARY | 2024-05-18 12:41 | XMS_ITS | Encounter Summary ---
Author Organization [facility] Address [address] [facility] 7t [place] [address] Care Team Providers Care Plaster Mold Maker Name Role Phone Delilah Bridges MD Primary Care Provider +1- [phone] Sharifa Duncan MD Unavailable Tiffany Smith Unavailable Lito Rodas MD Unavailable Reason for Visit * Reason Onset Date Comments Med Refill 05/15/2024 Encounter Details Date Type Department Care Team (Late st Contact Info) Description 05/15/2024 Refill [facility] [address] [place], [place] [phone] Delilah Bridges MD [address] [place], [place] [phone] Right maxillary sinusitis; Mild asthma, unspecified whether [...] 11:30 AM EDT Office Visit [facility] [address] [place] [address] Delilah Bridges MD [address] [place] [address] documented as of this encounter Visit Diagnoses Diagnosis Right maxillary sinusitis Mild asthma, unspecified whether complicated, unspecified whether persistent Major depressive disorder with current active episode, unspecified depression episode severity, unspecified whether recurrent documented in this encounter Additional Health Concerns Assessment Noted Time PHQ-9 Depression Total Score: 11 025 11:57 AM EDT documented as of this encounter Care Teams Plaster Mold Maker Relationship Specialty Start Date End Date Delilah Bridges MD [address] [place] [phone] PCP - General Family Medicine 02/15/18 Sharifa Duncan MD [address] [address] Sleep Medicine 01/24/24 iTffany Smith [address] [place] [address] [phone] Gynecology 03/30/24 Lito Rodas MD [address] [place] [address] [place] [address] Obstetrics and Gynecology 04/20/24 documented as of this encounter
--- OUTSIDE RECORDS SUMMARY | 2024-05-18 12:41 | XMS_ITS | Encounter Summary ---
Author Organization [employer] [facility] Address 75 [facility] 7t [place] [address] Care Team Providers Care Steam Service Inspector Name Role Phone Delilah Bridges MD Primary Care Provider +1- [phone] Sharifa Duncan MD Unavailable Tiffany Smith Unavailable Lito Rodas MD Unavailable Encounter Details Date Type Department Care Team (Late st Contact Info) Description 05/17/2024 Telephone [facility] MEDICINE 230 [place], [place] [phone] Delilah Bridges MD 230 [place], [place] [phone] Social History Tobacco Use Types Packs/Day Years [...] Description 07/17/2024 11:30 AM EDT Office Visit [facility] MEDICINE 230 [place] [address] Delilah Bridges MD 230 [place] [address] documented as of this encounter Visit Diagnoses Not on filedocumented in this encounter Additional Health Concerns Assessment Noted Time PHQ-9 Depression Total Score: 11 025 11:57 AM EDT documented as of this encounter Care Teams Steam Service Inspector Relationship Specialty Start Date End Date Delilah Bridges MD [address] [place] [address] PCP - General Family Medicine 02/15/18 Sharifa Duncan MD [address] [address] Sleep Medicine 01/24/24 Tiffany Smith [address] [place] [address] Gynecology 03/30/24 Lito Rodas MD [address] [place] [address] [place] [address] Obstetrics and Gynecology 04/20/24 documented as of this encounter
--- OUTSIDE RECORDS SUMMARY | 2024-05-18 12:41 | XMS_ITS | Encounter Summary ---
Author Organization [employer] [facility] Address 75 [facility] 7t [place] [address] Care Team Providers Care Electronic Maintenance Supervisor Name Role Phone [place], Delilah ANDRE Primary Care Provider +1- [phone] Sharifa Duncan MD Unavailable Tiffany Smith Unavailable Lito Rodas MD Unavailable Reason for Visit * Reason Onset Date Comments Med Refill 09/27/2023 Encounter Details Date Type Department Care Team (Late st Contact Info) Description 09/27/2023 Refill [facility] ADULT DENTAL 230 [place] [address] Eliezer Urbina, AIME 505 [place] [address] Dental caries Social History Tobacco Use Types [...] Description 07/17/2024 11:30 AM EDT Office Visit [facility] MEDICINE [address] [place] [address] Delilah Bridges MD [address] [place] [address] documented as of this encounter Visit Diagnoses Diagnosis Dental caries Unspecified dental caries documented in this encounter Additional Health Concerns Assessment Noted Time PHQ-9 Depression Total Score: 6 06/30/19 24 11:22 AM EDT documented as of this encounter Care Teams Electronic Maintenance Supervisor Relationship Specialty Start Date End Date Delilah Bridges MD [address] [place] [address] PCP - General Family Medicine 02/15/18 Sharifa Duncan MD [address] [address] Sleep Medicine 01/24/[address] [place] [address] [address] [place] [address] Gynecology 03/30/24 Lito Rodas MD [address] [place] [address] [place] [address] Obstetrics and Gynecology 04/20/24 documented as of this encounter
--- OUTSIDE RECORDS SUMMARY | 2024-05-18 12:41 | XMS_ITS | Encounter Summary ---
Author Organization [employer] [facility] Address 75 [facility] 7t [place] [address] Care Team Providers Care Control Technician Name Role Phone Delilah Bridges MD Primary Care Provider +1- [phone] Sharifa Duncan MD Unavailable Tiffany Smith Unavailable Lito Rodas MD Unavailable Reason for Visit * Reason Comments Med Refill Encounter Details Date Type Department Care Team (Late st Contact Info) Description 04/29/2024 Refill [facility] 230 [place], [place] [phone] Marbella Alcaraz MD 230 [place], [place] [phone] Social History Tobacco Use Types Packs/Day Years [...] 11:30 AM EDT Office Visit [facility] MEDICINE [address] [place] [address] Delilah Bridges MD [address] [place] [address] documented as of this encounter Visit Diagnoses Not on filedocumented in this encounter Additional Health Concerns Assessment Noted Time PHQ-9 Depression Total Score: 6 06/30/19 24 11:22 AM EDT documented as of this encounter Care Teams Control Technician Relationship Specialty Start Date End Date Delilah Bridges MD 230 [place] [address] PCP - General Family Medicine 02/15/18 Sharifa Duncan MD 100 [facility] [address] [place] [address] Sleep Medicine 01/24/24 Tiffany Smith [address] [place] [address] Gynecology 03/30/24 Lito Rodas MD [address] [place] [address] Obstetrics and Gynecology 04/20/24 documented as of this encounter
--- OUTSIDE RECORDS SUMMARY | 2024-05-18 12:41 | XMS_ITS | Encounter Summary ---
Author Organization [facility] Address 75 [facility] 7t [place] [address] Care Team Providers Care Printer Operator Name Role Phone Delilah Bridges MD Primary Care Provider +1- [phone] Sharifa Duncan MD Unavailable Tiffany Smith Unavailable [...] 11:30 AM EDT Office Visit [facility] MEDICINE [address] [place] [address] Delilah Bridges MD [address] [place] [address] documented as of this encounter Visit Diagnoses Not on filedocumented in this encounter Additional Health Concerns Assessment Noted Time PHQ-9 Depression Total Score: 11 025 11:57 AM EDT documented as of this encounter Care Teams Printer Operator Relationship Specialty Start Date End Date Delilah Bridges MD 230 [place] [address] PCP - General Family Medicine 02/15/18 Sharifa Duncan MD 100 [facility] [address] [place] [address] Sleep Medicine 01/24/24 Tiffany Smith [address] [place] [address] Gynecology 03/30/24 Lito Rodas MD [address] [place] [address] Obstetrics and Gynecology 04/20/24 documented as of this encounter
--- OUTSIDE RECORDS SUMMARY | 2024-05-18 12:41 | XMS_ITS | Encounter Summary ---
Author Organization [facility] Address 75 [facility] 7t [place] [address] Care Team Providers Care Jogger Operator Name Role Phone Delilah Bridges MD Primary Care Provider +1- [phone] Sharifa Duncan MD Unavailable Tiffany Smith Unavailable Lito Rodas MD Unavailable Reason for Visit * Reason Onset Date Comments Nurse Triage 06/08/2023 Encounter Details Date Type Department Care Team (Late st Contact Info) Description 06/08/2023 Telephone [facility] MEDICINE 230 [place] [address] Delilah Bridges MD 230 [place], [place] [phone] Nurse Triage Social History Tobacco Use Types [...] 06/08/2023 4:28 PM EDT Triage call with IMANIN Quiller Tender [place] [id number] Pt reports migraine which is of chronic [...] accepted this outcome Please contact pt at [phone] documented in this encounter Plan of Treatment Upcoming Encounters Date Type Department Care Team (Late st Contact Info) Description 07/17/2024 11:30 AM EDT Office Visit [facility] MEDICINE 230 [place] [address] Delilah Bridges MD 230 [place] [address] documented as of this encounter Visit Diagnoses Not on filedocumented in this encounter Additional Health Concerns Assessment Noted Time PHQ-9 Depression Total Score: 3 04/30/19 11:45 AM EDT documented as of this encounter Care Teams Jogger Operator Relationship Specialty Start Date End Date Delilah Bridges MD 230 [place] [address] PCP - General Family Medicine 02/15/18 Sharifa Duncan MD [address] [address] Sleep Medicine 01/24/24 Tiffany Smith [address] [place] [address] Gynecology 03/30/24 Lito Rodas MD [address] [place] [address] [place] [address] Obstetrics and Gynecology 04/20/24 documented as of this encounter
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
[2024-05-18 13:56] LABS: Estimated Average Glucose 100 mg/dL; Hemoglobin A1C 118.1396 umol/L; Hemoglobin A1c % 5.1 % (<6.0); Total Hemoglobin (HGBA1C) 3708.0764 umol/L
[2024-05-18 13:59] LABS: Alanine Aminotransferase 14 U/L (0-31); Albumin Level 3.9 g/dL (3.5-5.0); Alkaline Phosphatase 84 U/L (39-117); Anion Gap 8 (12-20); Aspartate Amino Transferase 17 U/L (5-31); Bilirubin Direct 0.1 mg/dL (0.0-0.5); Bilirubin Total 0.4 mg/dL (0.0-1.0); Blood Urea Nitrogen 13 mg/dL (9-16); Calcium 8.7 mg/dL (8.4-10.2); Carbon Dioxide 23 mmol/L (22-29); Chloride 112 mmol/L (96-108); Cholesterol 184 mg/dL (<200); Estimated Glomerular Filt Rate > 60; Glucose Random 88 mg/dL (60-115); HDL Cholesterol 42 mg/dL (>40); LDL Cholesterol Calculated 129 mg/dL (<100); Sodium 139 mmol/L (135-145); Total Protein 6.8 g/dL (6.5-8.0); Triglycerides 66 mg/dL (<150)
[2024-05-18 14:15] LABS: TSH reflex Free T4 0.99 uIU/mL (0.32-4.0)
== END 2024-05-18 11:25 | disposition home or self-care (01) ==
LOC: HO.HHCL 11:24
PROVIDERS: Visit Provider Family Medicine
DX: E66.811 Obesity, class 1 (principal); E66.09 Other obesity due to excess calories; Z68.34 Body mass index [BMI] 34.0-34.9, adult; M54.50 Low back pain, unspecified; G89.29 Other chronic pain; Z13.1 Encounter for screening for diabetes mellitus
CPT/HCPCS: 36415; 80048; 80061; 80076; 83036; 84443

== ENCOUNTER 2025-01-23 16:39 | Emergency (ER) | payer MEDICAID, SELFPAY ==
[2025-01-23 17:58] VITALS: BP 123/82; PULSE 92; RESP 18; TEMP 36.6; O2SAT 99; BMI 29.9
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
[2025-01-23 18:26] LABS: MANUAL DIFF FLAG NO
[2025-01-23 18:27] LABS: Hematocrit 44.4 % (37.0-47.0); Hemoglobin 14.5 g/dl (12.0-16.0); Imm Gran Abs Auto 0.03 X10*3/uL (0.00-0.03); Imm Gran Pct Auto 0.3 % (0.0-0.4); Lymphocytes Absolute Auto 2.0 X10*3/uL (1.2-4.9); Mean Corpuscular HGB Conc 32.7 g/dl (31.0-35.0); Mean Corpuscular Hemoglobin 29.1 pg (27.0-33.0); Mean Corpuscular Volume 89.0 fL (80.0-98.0); NRBC Abs Auto 0.000 X10*3/uL (0.0-0.012); NRBC Pct Auto 0.0 /100WBC (0.0-0.2); Platelet Count 304 X10*3/uL (160-400); Red Blood Count 4.99 X10*6/uL (4.20-5.50); White Blood Count 9.3 X10*3/uL (4.8-10.8)
[2025-01-23 18:29] LABS: Appearance Urine Cloudy; Glucose Urine UA Negative (Negative); PH 5.5 (5.0-9.0); Specific Gravity - Urine 1.020 (1.005-1.025); UMIC TRIGGER UACC YES
[2025-01-23 18:33] LABS: INTERNATIONAL NORM RATIO 1.0 (0.9-1.1); Prothrombin Time 12.8 SEC (11.2-13.5)
[2025-01-23 18:36] LABS: Partial Thromboplastin Time 28.6 SEC (26.7-34.1)
[2025-01-23 18:50] LABS: UPreg QC Valid YES
[2025-01-23 18:56] LABS: Troponin-I High Sensitivity < 2.7 ng/L (<3.5-17.0)
[2025-01-23 18:57] LABS: Alanine Aminotransferase 18 U/L (0-31); Albumin Level 4.4 g/dL (3.5-5.0); Alkaline Phosphatase 88 U/L (39-117); Anion Gap 9 (12-20); Aspartate Amino Transferase 17 U/L (5-31); Blood Urea Nitrogen 9 mg/dL (9-16); Calcium 9.2 mg/dL (8.4-10.2); Carbon Dioxide 28 mmol/L (22-29); Chloride 108 mmol/L (96-108); Creatinine Clr Calc Pharmacy 120.0; Estimated Glomerular Filt Rate > 60; Potassium 4.3 mmol/L (3.3-5.1); Sodium 141 mmol/L (135-145); Total Protein 7.1 g/dL (6.5-8.0)
[2025-01-23 19:01] LABS: UACC Culture Trigger YES
[2025-01-23 20:11] VITALS: BP 119/78; PULSE 92; RESP 16; TEMP 36.6; O2SAT 98
--- OUTSIDE RECORDS SUMMARY | 2025-01-24 00:01 | XMS_ITS | Encounter Summary ---
Author Organization [email or web address] Address 75 [facility] 7t [place] [address] Care Team Providers Care Security Ambassador Name Role Phone Delilah Bridges MD Primary Care Provider +1- [phone] Sharifa Duncan MD Unavailable Tiffany Smith Unavailable Lito Rodas MD Unavailable Reason for Visit * Reason Onset Date Comments Nurse Triage 06/08/2023 Encounter Details Date Type Department Care Team (Late st Contact Info) Description 06/08/2023 Telephone [facility] MEDICINE 230 [place] [address] Delilah Bridges MD 230 [place], [place] [phone] Nurse Triage Social History Tobacco Use Types Packs/Day Years Used Date Smoking Tobacco: Never Passive Smoke Exposure: Never Smokeless Tobacco: Never Alcohol Use Standard Drinks/Week Comments Never 0 (1 standard drink = 0.6 oz pur e alcohol) Depression Answer Date Recorded Patient Health Questionnaire-9 Score 3 04/29/2022 Housing Stability Answer Date Recorded What is your housing situation today? I have sarah carrillo 12/02/[address] you [...] 06/08/2023 4:28 PM EDT Triage call with [employer] Assignment Editor ID [id number] Pt reports migraine which is of chronic [...] accepted this outcome Please contact pt at [phone] documented in this encounter Plan of Treatment Upcoming Encounters Date Type Department Care Team (Late st Contact Info) Description 03/26/2025 10:30 AM EST Office Visit [facility] MEDICINE 230 [place] [address] Delilah Bridges MD 230 [place] [address] documented as of this encounter Visit Diagnoses Not on filedocumented in this encounter Additional Health Concerns Assessment Noted Time PHQ-9 Depression Total Score: 3 04/30/19 23 11:45 AM EDT documented as of this encounter Care Teams Security Ambassador Relationship Specialty Start Date End Date Delilah Bridges MD [address] [place] [address] PCP - General Family Medicine 02/15/18 Sharifa Duncan MD [address] [address] Sleep Medicine 01/24/24 Tiffany Smith [address] [place] [address] Gynecology 03/30/24 Lito Rodas MD [address] [place] [address] [place] [address] Obstetrics and Gynecology 04/20/24 documented as of this encounter
--- OUTSIDE RECORDS SUMMARY | 2025-01-24 00:01 | XMS_ITS | Encounter Summary ---
Author Organization [employer] Address [address] [facility] [address] 7t [place] [address] Care Team Providers Care Security Shift Manager Name Role Phone [place], Delilah ANDRE Primary Care Provider +1- [phone] Sharifa Duncan MD Unavailable Tiffany Smith Unavailable Lito Rodas MD Unavailable Reason for Visit * Reason Onset Date Comments Med Refill 09/27/2023 Encounter Details Date Type Department Care Team (Late st Contact Info) Description 09/27/2023 Refill [facility] ADULT DENTAL 230 [place] [address] Eliezer Urbina, AIME 505 [place] [address] Dental caries Social History Tobacco Use Types [...] Description 03/26/2025 10:30 AM EST Office Visit [facility] MEDICINE [address] [place] [address] Delilah Bridges MD [address] [place] [address] documented as of this encounter Visit Diagnoses Diagnosis Dental caries Unspecified dental caries documented in this encounter Additional Health Concerns Assessment Noted Time PHQ-9 Depression Total Score: 6 06/30/19 24 11:22 AM EDT documented as of this encounter Care Teams Security Shift Manager Relationship Specialty Start Date End Date Delilah Bridges MD [address] [place] [address] PCP - General Family Medicine 02/15/18 Sharifa Duncan MD [address] [address] Sleep Medicine 01/24/24 Tiffany Smith [address] [place] [address] Gynecology 03/30/24 Lito Rodas MD [address] [place] [address] Obstetrics and Gynecology 04/20/24 documented as of this encounter
--- OUTSIDE RECORDS SUMMARY | 2025-01-24 00:01 | XMS_ITS | Clinical Summary ---
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 [facility] [place] [facility] Comment: HCV antibody was non-reactive. There is no laboratory evidence of HCV infection. In most cases, no further action is required. However, if recent HCV exposure is suspected, a test for HCV RNA (test code 69672) is suggested. For additional information please refer to http://education.[employer]ac[employer]/faq/HSM43z5 (This link is being provided for informational/ educational purposes only.) Blood Venous blood specimen / Unknown 04/30/2022 1:20 PM EDT 04/30/2022 1:21 PM EDT Narrative [facility] - 05/05/2022 12:29 AM EDT FASTING:YES FASTING: YES Delilah Bridges MD LAB BLOOD ORDERABLES Final Result [facility] [address], [facility] [place] [address] [facility] [employer]t [address] [place] [address] * HIV-1/2 Antigen and Antibodies, Fourth Generation, with Reflexes (04/30/2022 1:20 PM EDT) [facility] HIV Antigen/Antibody, 4th Generation NON-REAC TIVE NON-REAC TIVE [facility] [employer] Comment: HIV-1 antigen and HIV-1/HIV-2 antibodies were not detected. There is no laboratory evidence of HIV infection. PLEASE NOTE: This information has been disclosed to you from records whose confidentiality may be protected by state law. If your state requires such protection, then the state law prohibits you from making any further disclosure of the information without the specific written consent of the person to whom it pertains, or as otherwise permitted by law. A general authorization for the release of medical or other information is NOT sufficient for this purpose. For additional information please refer to http://education.[employer]Our Security Team/faq/HIN173 (This link is being provided for informational/ educational purposes only.) The performance of this assay has not been clinically validated in patients less than 2 years old. Blood Venous blood specimen / Unknown 04/30/2022 1:20 PM EDT 04/30/2022 1:21 PM EDT Narrative [facility] - 05/05/2022 12:29 AM EDT FASTING:YES FASTING: YES Delilah Bridges MD LAB BLOOD ORDERABLES Final Result [facility] [address], [facility] [place] [address] [facility] [place] [employer] [address] [place] [address] * HPV E6/E7 RFLX DIRK 16 18/45 (09/08/2021 2:01 PM EDT) HPV 16 RNA [facility] HPV 18/45 RNA [facility] HPV E6 E7 ADD [facility] HPV mRNA E6/E7 rflx Not Detected Not Detected [facility] Comment: Methodology: Toll Line Mechanic-Mediated Amplification This assay detects E6/E7 viral messenger RNA (mRNA) from 14 high-risk HPV types (16,18,31,33,35,39,45,51,52,56,58,59,66,68). Cervical sources are required for HPV testing. If a vaginal source from a patient who has had a total hysterectomy with removal of cervix was submitted, please contact the testing laboratory for alternative testing options. For additional information, please refer to http://education.Modacruz/faq/PIJ821q5 (This link if provided for information/ educational purposes only.) THIS TEST WAS PERFORMED AT: [facility] [address] [place] [address] [address]RD FLOOR,[place] [address] TEODORO SCHNEIDER MD 09/08/2021 2:01 PM EDT Lito Rodas MD HISTORICAL/NON ORDERABLE LABS Fi nal Result [facility] [address] from Last 3 Months or Most Recently Relevant to Health Maintenance Insurance [facility] [place] STAND ADULT [employer]IVE [employer]URANCE Advance Directives Documents on File Type Date Recorded Patient Futures Trader Expl anation Advance Directives and Living Will 06/30/2023 Health Care Proxy 06/30/23 Care Teams Propellant Assembler Relationship Specialty Start Date End Date Delilah Bridges MD [address] [place] [address] PCP - General Family Medicine 02/15/18 Sharifa Duncan MD [address] [address] Sleep Medicine 01/24/24 Tiffany Smith [address] [place] [address] Gynecology 03/30/24 Lito Rodas MD [address] [place] [address] Obstetrics and Gynecology 04/20/24
--- OUTSIDE RECORDS SUMMARY | 2025-01-24 00:02 | XMS_ITS | Encounter Summary ---
Author Organization [employer] Address 75 [facility] 7t [place] [address] Care Team Providers Care Stamping Mill Tender Name Role Phone Delilah Bridges MD Primary Care Provider +1- [phone] Sharifa Duncan MD Unavailable Tiffany Smith Unavailable Lito Rodas MD Unavailable Reason for Visit * Reason Onset Date Comments Nurse Triage 01/23/2025 Encounter Details Date Type Department Care Team (Late st Contact Info) Description 01/23/2025 Telephone [facility] [address] [place] [address] Delilah Bridges MD [address] [place], [place] [phone] Nurse Triage Social History Tobacco Use Types [...] encounter Miscellaneous Notes * Telephone Encounter - Sara Veras RN - 01/23/2025 12:02 PM EST Called pt to triage, 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 Pt states was in the bathroom getting ready yesterday and she passed out. Her boyfriend was there and said there was LOC but not sure how long. Pt denies previous history, skipping meals, getting over heated in the BR, recent illness, or other associated symptoms. Advised with no clear reason she may have passed out, she would need ER evaluation with follow up later this week. Advised home care: rest, fluids, lie down, and seek ER evaluation. Pt understands and agrees with plan. * Telephone Encounter - Landy Cabello - 01/23/2025 11:24 AM EST Symptom: Fainted (Passed Out) Outcome: Talk to a nurse or provider within 15 minutes Reason: Trouble walking The caller accepted this outcome. Contact pt at [phone] (nepali) documented in this encounter Plan of Treatment Upcoming Encounters Date Type Department Care Team ([facility] st Contact Info) Description 03/26/2025 10:30 AM EST Office Visit [facility] [address] [place] [address] Delilah Bridges MD [address] [place] [address] documented as of this encounter Visit Diagnoses Not on filedocumented in this encounter Additional Health Concerns Assessment Noted Time PHQ-9 Depression Total Score: 0 11/28/19 10:38 AM EDT documented as of this encounter Care Teams Stamping Mill Tender Relationship Specialty Start Date End Date Delilah Bridges MD [address] [place] [address] PCP - General Family Medicine 02/15/18 Sharifa Duncan MD [address] [address] Sleep Medicine 01/24/24 Tiffany Smith [address] [place] [address] Gynecology 03/30/24 Lito Rodas MD [address] [place] [address] [place] [address] Obstetrics and Gynecology 04/20/24 documented as of this encounter
--- OUTSIDE RECORDS SUMMARY | 2025-01-24 00:02 | XMS_ITS | Encounter Summary ---
Author Organization [employer] Address 75 [facility] 7t [place] [address] Care Team Providers Care Vending Machine Attendant Name Role Phone Delilah Bridges MD Primary Care Provider +1- [phone] Sharifa Duncan MD Unavailable Tiffany Smith Unavailable Lito Rodas MD Unavailable Reason for Visit * Reason Onset Date Comments Med Refill 08/16/2024 Encounter Details Date Type Department Care Team (Late st Contact Info) Description 08/16/2024 Refill [facility] 230 [place] [address] Delilah Bridges MD 230 [place], [place] [phone] Class 1 obesity due to excess calories without serious comorbidity with body mass index (BMI) of 34.0 to 34.9 in adult Social History Tobacco Use Types Packs/Day Years [...] t he electric, gas, oil or water [employer] threatened to shut off services in your [...] Description 03/26/2025 10:30 AM EST Office Visit [facility] [address] [place] [address] Delilah Bridges MD [address] [place] [address] documented as of this encounter Visit Diagnoses Diagnosis Class 1 obesity due to excess calories without serious comorbidity with body mass index (BMI) of 34.0 to 34.9 in adult documented in this encounter Additional Health Concerns Assessment Noted Time PHQ-9 Depression Total Score: 11 025 11:57 AM EDT documented as of this encounter Care Teams Vending Machine Attendant Relationship Specialty Start Date End Date Delilah Bridges MD [address] [place] [address] PCP - General Family Medicine 02/15/18 Sharifa Duncan MD 100 [facility] [address] [place] [address] Sleep Medicine 01/24/24 [place], Tiffany [address] [place] [address] Gynecology 03/30/24 Lito Rodas MD [address] [place] [address] [place] [address] Obstetrics and Gynecology 04/20/24 documented as of this encounter
--- OUTSIDE RECORDS SUMMARY | 2025-01-24 00:02 | XMS_ITS | Encounter Summary ---
Author Organization [employer] Address [address] [facility] [address] 7t [place] [address] Care Team Providers Care Mastic Sprayer Name Role Phone [place], Delilah ANDRE Primary Care Provider +1- [phone] Sharifa Duncan MD Unavailable Tiffany Smith Unavailable Lito Rodas MD Unavailable Reason for Visit * Reason Comments Med Refill Encounter Details Date Type Department Care Team (Late st Contact Info) Description 04/29/2024 Refill [facility] 230 [place], [place] [phone] Marbella Alcaraz MD 230 [place], [place] [phone] Social History Tobacco Use Types Packs/Day Years [...] Description 03/26/2025 10:30 AM EST Office Visit [facility] [address] [place] [address] Delilah Bridges MD [address] [place] [address] documented as of this encounter Visit Diagnoses Not on filedocumented in this encounter Additional Health Concerns Assessment Noted Time PHQ-9 Depression Total Score: 6 06/30/19 24 11:22 AM EDT documented as of this encounter Care Teams Mastic Sprayer Relationship Specialty Start Date End Date Delilah Bridges MD 230 [place] [address] PCP - General Family Medicine 02/15/18 Sharifa Duncan MD [address] [address] Sleep Medicine 01/24/24 Tiffany Smith [address] [place] [address] Gynecology 03/30/24 Lito Rodas MD [address] [place] [address] Obstetrics and Gynecology 04/20/24 documented as of this encounter
--- OUTSIDE RECORDS SUMMARY | 2025-01-24 00:02 | XMS_ITS | Encounter Summary ---
Author Organization [employer] Address 75 [facility] 7t [place] [address] Care Team Providers Care Digital Recruiter Name Role Phone Delilah Bridges MD Primary Care Provider +1- [phone] Sharifa Duncan MD Unavailable Tiffany Smith Unavailable Lito Rodas MD Unavailable Reason for Visit * Reason Onset Date Comments Med Refill 01/18/2025 Encounter Details Date Type Department Care Team (Late st Contact Info) Description 01/18/2025 Refill [facility] 230 [place] [address] Delilah Bridges MD 230 [place], [place] [phone] Class 1 obesity due to excess calories [...] t he electric, gas, oil or water [employer] threatened to shut off services in your [...] Description 03/26/2025 10:30 AM EST Office Visit [facility] [address] [place] [address] Delilah Bridges MD [address] [place] [address] documented as of this encounter Visit Diagnoses Diagnosis Class 1 obesity due to excess calories without serious comorbidity with body mass index (BMI) of 34.0 to 34.9 in adult documented in this encounter Additional Health Concerns Assessment Noted Time PHQ-9 Depression Total Score: 0 11/28/19 25 10:38 AM EDT documented as of this encounter Care Teams Digital Recruiter Relationship Specialty Start Date End Date Delilah Bridges MD [address] [place] [address] PCP - General Family Medicine 02/15/18 Sharifa Duncan MD 100 [facility] 360 [place] [address] Sleep Medicine 01/24/24 [place], Tiffany [address] [place] [address] Gynecology 03/30/24 Lito Rodas MD [address] [place] [address] [place] [address] Obstetrics and Gynecology 04/20/24 documented as of this encounter
--- OUTSIDE RECORDS SUMMARY | 2025-01-24 00:02 | XMS_ITS | Encounter Summary ---
Author Organization [employer] Address 75 [facility] 7t [place] [address] Care Team Providers Care Senior Controller Name Role Phone Delilah Bridges MD Primary Care Provider +1- [phone] Sharifa Duncan MD Unavailable Tiffany Smith Unavailable Lito Rodas MD Unavailable Reason for Visit * Reason Comments Med Refill Encounter Details Date Type Department Care Team (Late st Contact Info) Description 12/07/[address] [facility] 230 [place] [address] Delilah Bridges MD 230 [place], [place] [phone] Strain of neck muscle, subsequent encounter Social [...] Description 03/26/2025 10:30 AM EST Office Visit [facility] [address] [place] [address] Delilah Bridges MD [address] [place] [address] documented as of this encounter Visit Diagnoses Diagnosis Strain of neck muscle, subsequent encounter documented in this encounter Additional Health Concerns Assessment Noted Time PHQ-9 Depression Total Score: 0 11/28/19 25 10:38 AM EDT documented as of this encounter Care Teams Senior Controller Relationship Specialty Start Date End Date Delilah Bridges MD [address] [place] [address] PCP - General Family Medicine 02/15/18 Sharifa Duncan MD 100 [facility] [address] [place] [address] Sleep Medicine 01/24/24 SarahTiffany [address] [facility] [address] [place] [address] Gynecology 03/30/24 Lito Rodas MD [address] [place] [address] [place] [address] Obstetrics and Gynecology 04/20/24 documented as of this encounter
--- OUTSIDE RECORDS SUMMARY | 2025-01-24 00:02 | XMS_ITS | Encounter Summary ---
Author Organization [facility] Address 75 [facility] 7t [place] [address] Care Team Providers Care Insurance Territory Manager Name Role Phone Delilah Bridges MD Primary Care Provider +- [phone] Sharifa Duncan MD Unavailable GoodmanTiffany pascal Unavailable Lito Rodas MD Unavailable Encounter Details Date Type Department Care Team (Late st Contact Info) Description 03/26/2022 Abstract [facility] [address] [place] [address] [phone] Delilah Bridges MD [address] [place] [address] [phone] Social History Tobacco Use Types Packs/Day Years [...] Description 03/26/2025 10:30 AM EST Office Visit [facility] [address] [place] [address] [phone] Delilah Bridges MD [address] [place] [address] [phone] documented as of this encounter Procedures Procedure Name Priority Date/Time Associated Diagnosis Comments PAP SMEAR Routine 09/08/2021 12:00 AM EDT documented in this encounter Results * Pap Smear (09/08/2021 12:00 AM EDT) Swab us Historical Provider LAB CYTOLOGY ORDERABLES F inal Result IMAGING documented in this encounter Visit Diagnoses Not on filedocumented in this encounter Care Teams Insurance Territory Manager Relationship Specialty Start Date End Date Delilah Bridges MD [address] [place] [address] PCP - General Family Medicine 02/15/18 Sharifa Duncan MD [address] [address] Sleep Medicine 01/24/24 Tiffany Smith [address] [place] [address] Gynecology 03/30/24 Lito Rodas MD [address] [place] [address] Obstetrics and Gynecology 04/20/24 documented as of this encounter
--- OUTSIDE RECORDS SUMMARY | 2025-01-24 00:02 | XMS_ITS | Encounter Summary ---
Author Organization [employer] Address 75 [facility] 7t [place] [address] Care Team Providers Care Certified Neurodiagnostic Technologist Name Role Phone Delilah Bridges MD Primary Care Provider +1- [phone] Sharifa Duncan MD Unavailable Tiffany Smith Unavailable Lito Rodas MD Unavailable Reason for Visit * Reason Onset Date Comments Nurse Triage 03/23/2023 Encounter Details Date Type Department Care Team (Late st Contact Info) Description 03/23/2023 Telephone [facility] 230 [place] [address] Delilah Bridges MD 230 [place], [place] [phone] Nurse Triage Social History Tobacco Use Types [...] 03/23/2023 1:38 PM EST Triage call with [employer] Food Assembler ID [id number]. Pt reports a lump greater than the size of ping pong ball has erupted on the middle of forehead over night. Pt reports some redness, warm to touch but, not painful. Pt reports it has a feeling of pressure and has been having headaches. Pt has hx of bells palsy for 7 years. Pt is advised to come to [facility] today , open till 8pm, for provider [...] accepted this outcome Please contact pt at [phone] (frisian) documented in this encounter Plan of Treatment Upcoming Encounters Date Type Department Care Team (Late st Contact Info) Description 03/26/2025 10:30 AM EST Office Visit [facility] 230 [place] [address] Delilah Bridges MD 230 [place] [address] documented as of this encounter Visit Diagnoses Not on filedocumented in this encounter Additional Health Concerns Assessment Noted Time PHQ-9 Depression Total Score: 3 04/30/19 23 11:45 AM EDT documented as of this encounter Care Teams Certified Neurodiagnostic Technologist Relationship Specialty Start Date End Date Delilah Bridges MD 230 [place] [address] PCP - General Family Medicine 02/15/18 Sharifa Duncan MD [address] [address] Sleep Medicine 01/24/24 Tiffany Smith [address] [place] [address] Gynecology 03/30/24 Lito Rodas MD [address] [place] [address] [place] [address] Obstetrics and Gynecology 04/20/24 documented as of this encounter
--- OUTSIDE RECORDS SUMMARY | 2025-01-24 00:02 | XMS_ITS | Encounter Summary ---
Author Organization [employer] Address [address] [facility] [address] [place] [address] Care Team Providers Care Administrative Underwriter Name Role Phone Cyrus, Delilah ANDRE Primary Care Provider +1- [phone] Sharifa Duncan MD Unavailable Tiffany Smith Unavailable Lito Rodas MD Unavailable Encounter Details Date Type Department Care Team (Late st Contact Info) Description 01/23/2025 Orders Only GENERIC EXTERNAL DATA [...] Description 03/26/2025 10:30 AM EST Office Visit [facility] [address] [place], [place] [phone] Delilah Bridges MD [address] [place] [address] documented as of this encounter Procedures Procedure Name Priority Date/Time Associated Diagnosis Comments HIGH SENSITIVITY TROPONIN I Routine 01/23/2025 6:20 PM EST URINALYSIS, COMPLETE, WITH REFLEX TO CULTURE Routine 01/23/2025 6:20 PM EST CBC WITH AUTO DIFFERENTIAL Routine 01/23/2025 6:20 PM EST HCG, QL, URINE Routine 01/23/2025 6:20 PM EST APTT Routine 01/23/2025 6:20 PM EST PROTHROMBIN TIME-INR Routine 01/23/2025 6:20 PM EST HCG, TOTAL, QN Routine 01/23/2025 6:20 PM EST COMPREHENSIVE METABOLIC PANEL Routine 01/23/2025 6:20 PM EST documented in this encounter Results * hCG, Total, Quantitative (01/23/2025 6:20 PM EST) HCG Quantitative <2 mIU/mL [facility] Comment:Weeks post LMP Appro ximate hCG(Last Menstrual Period) Range (mIU/ml)3 - 4 weeks 9 - 1304 - 5 weeks 75 - 2,6005 - 6 weeks 850 - 20,8006 - 7 weeks 4000 - 100,2007 - 12 weeks 11,500 - 289,86105 - 16 weeks 18,300 - 137,53310 - 29 weeks (2nd trimester) 1,400 - 53,52639 - 41 weeks (3rd trimester) 940 - [...] Provider LAB BLOOD ORDERAB LES Final Result [facility] [address] [place] [phone] * (ABNORMAL) Urinalysis, Complete, with Reflex to Culture (01/23/2025 6:20 PM EST) Color Urine Yellow [facility] Appearance Urine Cloudy [facility] PH 5.5 5.0 - 9.0 [facility] Glucose Urine UA Negative Negative mg/dL [facility] Urine Blood Negative Negative [facility] Specific Remer - Urine 1.020 1.005 - 1.025 [facility] Urine Protein Negative Neg-Trace mg/dL [facility] Urine Ketones Negative Negative mg/dL [facility] Nitrite Urine Positive(A) Negative [facility] Leukocyte Esterase Urine Trace(A) Negative [facility] RBC Urine 3-5(A) 0 - 2 /HPF [facility] Urine WBC 11-20(A) 0 - 5 /HPF [facility] Urine Squamous Epithelial Cell >20 0 - 2 /HPF [facility] Urine Bacteria 4+ None Seen [facility] Hyaline Casts, Urine 0-2 0 - 2 /LPF [facility] 01/23/2025 6:20 PM EST 01/23/2025 6:23 PM EST Narrative [facility] - 01/23/2025 7:03 PM EST [id number], Clean Catch us Generic External Data Provider LAB URINE ORDERAB LES Final Result [facility] [address] [place] [address] [phone] * (ABNORMAL) Comprehensive Metabolic Panel (01/23/2025 6:20 PM EST) Sodium 141 135 - 145 mmol/L [facility] Potassium 4.3 3.3 - 5.1 mmol/L [facility] Chloride 108 96 - 108 mmol/L [facility] Carbon Dioxide 28 22 - 29 mmol/L [facility] Anion Gap 9(L) 12 - 20 [facility] Urea Nitrogen (BUN) 9 9 - 16 mg/dL [facility] Creatinine, Serum 0.70 0.5 - 1.4 mg/dL [facility] Creatinine Clr Calc Pharmacy 120.0 [facility] Comment:Provided height and weight: 167.64 cm,83.9 kg.eGFR (calculated from the MDRD study equation) and eCrCl(calculated from the Cockcroft-Gault equation) are based ondifferent parameters and may not yield comparable results.If eCrCl result is absurd, please check patient'sheight/weight. Estimated Glomerular Filt Rate >60 [facility] Comment:Chronic Kidney Disea se: Estimated GFR < 60 mL/min/1.03e0Jmdmre Kidney Disease: Estimated GFR < 15 mL/min/1.73m2 Glucose 75 60 - 115 mg/dL [facility] Calcium 9.2 8.4 - 10.2 mg/dL [facility] Bilirubin, Total 0.2 0.0 - 1.0 mg/dL [facility] Aspartate Amino Transferase 17 5 - 31 U/L [facility] Alanine Aminotransferase 18 0 - 31 U/L [facility] Total Protein 7.1 6.5 - 8.0 g/dL [facility] Albumin Level 4.4 3.5 - 5.0 g/dL [facility] Alkaline Phosphatase 88 39 - 117 U/L [facility] 01/23/2025 6:20 PM EST 01/23/2025 6:23 PM EST Generic External Data Provider LAB BLOOD ORDERAB LES Final Result Performing Organization Address [facility]/ZIP Co de Phone Number [facility] [address] [place] [phone] * High Sensitivity Troponin I (01/23/2025 6:20 PM EST) TROPONIN I HIGH SENSITIVITY <2.7 <3.5 - 17.0 ng/L [facility] Comment:The Wayne high sens itivity Troponin-I results should beused in conjunction with other diagnostic information suchas ECG, clinical observations and information, and patientsymptoms to aid in the diagnosis of AK. 01/23/2025 6:20 PM EST 01/23/2025 6:23 PM EST us Generic External Data Provider LAB BLOOD ORDERAB LES Final Result Performing Organization Address City/[facility]/ZIP Co de Phone Number [facility] [address] [place] [phone] * HCG, Qualitative, Urine (01/23/2025 6:20 PM EST) Urine NEGATIVE NEGATIVE [facility] Comment:This test was develo ped to detect early . Falsenegative results may occur after the 5th - 7th week ofpregnancy when using this test method. If clinicallyindicated, consider a serum hCG. 01/23/2025 6:20 PM EST 01/23/2025 6:23 PM EST us Generic External Data Provider LAB URINE ORDERAB LES Final Result Performing Organization Address [facility] Co de Phone Number [facility] [address] [place] [phone] * Partial Thromboplastin Time, Activated (APTT) (01/23/2025 6:20 PM EST) Partial Thromboplastin Time 28.6 26.7 - 34.1 SEC [facility] 01/23/2025 6:20 PM EST 01/23/2025 6:23 PM EST Generic External Data Provider LAB BLOOD ORDERAB LES Final Result Performing Organization Address [facility] Co de Phone Number [facility] [address] [place] [phone] * Prothrombin Time-INR (01/23/2025 6:20 PM EST) Prothrombin Time 12.8 11.2 - 13.5 SEC [facility] INTERNATIONAL NORM RATIO 1.0 0.9 - 1.1 [facility] Comment:INTERNATIONAL NORMAL IZED RATIO (INR) REFERENCE [...] Provider LAB BLOOD ORDERAB LES Final Result [facility] [address] [place], [place] [phone] * CBC auto differential (01/23/2025 6:20 PM EST) White Blood Count 9.3 4.8 - 10.8 X10*3/uL [facility] Red Blood Count 4.99 4.20 - 5.50 X10*6/uL [facility] Hemoglobin 14.5 12.0 - 16.0 g/dl [facility] Hematocrit 44.4 37.0 - 47.0 % [facility] Mean Corpuscular Volume 89.0 80.0 - 98.0 fL [facility] Mean Corpuscular Hemoglobin 29.1 27.0 - 33.0 pg [facility] Mean Corpuscular HGB Conc 32.7 31.0 - 35.0 g/dl [facility] Red Cell Distribution Width 13.5 11.0 - 16.0 % [facility] Platelet Count 304 160 - 400 X10*3/uL [facility] Mean Platelet Volume 10.9 9.4 - 12.3 fL [facility] Neutrophils Percent Auto 68.6 45 - 73 % [facility] Imm Gran Pct Auto 0.3 0.0 - 0.4 % [facility] Lymphocytes Percent Auto 21.8 20 - 40 % [facility] Monocytes Percent Auto 7.5 2 - 11 % [facility] Eosinophils Percent Auto 1.3 0 - 4 % [facility] Basophils Percent Auto 0.5 0 - 2 % [facility] NRBC Pct Auto 0.0 0.0 - 0.2 /100WBC [facility] Neutrophils Absolute Auto 6.4 2.0 - 8.3 x10*3/uL [facility] Imm Gran Abs Auto 0.03 0.00 - 0.03 X10*3/uL [facility] Lymphocytes Absolute Auto 2.0 1.2 - 4.9 X10*3/uL [facility] Monocytes Absolute Auto 0.7 0.1 - 1.2 X10*3/uL [facility] Eosinophils Absolute Auto 0.1 0.0 - 0.4 X10*3/uL [facility] Basophils Absolute Auto 0.1 0.0 - 0.2 X10*3/uL [facility] NRBC Abs Auto 0.000 0.0 - 0.012 X10*3/uL [facility] 01/23/2025 6:20 PM EST 01/23/2025 6:23 PM EST us Generic External Data Provider LAB BLOOD ORDERAB LES Final Result [facility] [address] [place] [address] [phone] documented in this encounter Visit Diagnoses Not on filedocumented in this encounter Additional Health Concerns Assessment Noted Time PHQ-9 Depression Total Score: 0 11/28/19 25 10:38 AM EDT documented as of this encounter Care Teams Administrative Underwriter Relationship Specialty Start Date End Date Delilah Bridges MD [address] [place] [address] PCP - General Family Medicine 02/15/18 Sharifa Duncan MD [address] [address] Sleep Medicine 01/24/24 Tiffany Smith [address] [place] [address] Gynecology 03/30/24 Lito Rodas MD [address] [place] [address] [address] [place] [address] Obstetrics and Gynecology 04/20/24 documented as of this encounter
== END 2025-01-24 00:20 | disposition left against medical advice (07) ==
PROVIDERS: Physician Assistant; Emergency Provider Emergency Medicine; PCP Family Medicine
DX: R42 Dizziness and giddiness (principal); Z53.29 Procedure and treatment not carried out because of patient's decision for other reasons; N39.0 Urinary tract infection, site not specified; B96.20 Unspecified Escherichia coli [E. coli] as the cause of diseases classified elsewhere
CPT/HCPCS: 36415; 80053; 81001; 81025; 84484; 84702; 85025; 85610; 85730; 87086; 87088; 87186; 99282; 99283

== ENCOUNTER 2025-01-24 13:44 | Emergency (ER) | payer MEDICAID, SELFPAY ==
[2025-01-24 13:52] VITALS: BP 129/80; PULSE 104; RESP 20; TEMP 36.4; O2SAT 97; BMI 29.5
--- NOTE | 2025-01-24 14:12 | ED_ITS ---
HPI - Dizziness General Chief Complaint: Dizziness Stated Complaint: Dizzy Time Seen by Provider: 01/24/25 17:06 History of Present Illness ED Provider: jovita HPI Narrative: 39-year-old female with no significant medical or surgical history not on any meds no toxic habits reports lightheadedness dizziness some vertiginous symptoms but mostly reporting presyncopal symptoms with standing up feels hot and tingly all over when she gets up quickly. Passed out in a hot shower per the boyfriend yesterday or the day before. She denies chest pain headache around these events. She feels she is drinking a little less than normal but no vomiting no GI loss denies abdominal pain or chest pain no prior similar symptoms Related Data Home Medications ?Medication ?Instructions ?Recorded ?Confirmed albuterol sulfate 90 mcg/actuation 1 inh inhalation QI D 08/06/22 03/29/24 aerosol inhaler loratadine 10 mg tablet (Claritin) 10 mg PO DAILY 07/1703/29/24 acetaminophen 500 mg tablet 500 mg PO Q6H PRN pain 03/29/24 ibuprofen 600 mg tablet 600 mg PO Q8H PRN 10/28/22 0 03/29/24 Previous Rx's ?Medication ?Instructions ?Recorded cyclobenzaprine 5 mg tablet 5 mg PO BEDTIME PRN muscle spasm 05/08/24 #10 tabs dextroamphetamine-amphetamine ER 5 5 mg PO QAM 30 days #30 caps 06/12/24 mg 24hr capsule,extend release (Adderall XR) Allergies Allergy/AdvReac Type Severity Reaction Status Date / Time No Known Allergies Allergy Verified 01/24/25 13:55 [facility] Past Medical History Medical History 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 Dysplasia of cervix, low grade (OLAYINKA 1) Migraine Surgical History History of surgery of uterus Hx of tubal ligation Family History Family History Mother Fibromyalgia Father HTN (hypertension) Maternal Grandmother Uterine cancer Sister Uterine cancer Social History Social History Alcohol intake: never Comment: medicated in pacu Patient Tobacco Use Status: Never used Tobacco Second Hand Smoke Exposure: No Advance Directives: No Advance Directives Information Provided: No Do you have a plan to hurt others: No Plan Gender identity: Female Physical Exam 2 Exam: Exam: EXAM: Gen: Alert, awake, well appearing, well hydrated. Head: Atraumatic Eyes: Anicteric, Normal conjunctiva. ENT: Moist mucosa, no pallor. ? Neck: Supple. Skin: ?No observable rash or bruising on exposed or examined skin Respiratory: Breathing comfortably, No distress.Clear to auscultation bilaterally, symmetric chest expansion, No wheeze, rales, ronchi. Cardiovascular: Regular rate and rhythm. No murmurs or rub. Well perfused periphery, warm extremities. No edema. ? Abdominal: No focal tenderness. Soft, no objective distension. No palpable masses or obvious organomegaly. ?No guarding, no rebound tenderness or other peritoneal findings. : No flank tenderness. Neuro: Alert. Gross movement of all extremities intact. ? Psych: Calm. Cooperative. MSK: No grossly visible deformity. Vital signs: See flowsheet Vital Signs: Vital Signs: Last Vital Signs Temp 97.6 F 01/24/25 19:23 Pulse 104 H 01/24/25 19:23 Resp 20 01/24/25 19:23 BP 129/80 01/24/25 19:23 Pulse Ox 97 01/24/25 19:23 O2 Del Method Room Air 01/24/25 19:23 BMI result Body Mass Index 29.5 Course Course Course Narrative: This is an RME: Additional HPI, ROS, PE not included below will be deferred to primary provider. RME assessment and note performed by: Mary Ellen Singh PA-C This is a 39-year-old female, see's palsy, and migraine, who presents emergency department with concerns of dizziness since yesterday. Patient reports that she has been feeling very dizzy and short of breath, also endorsing upper back pain and head pain. No head strike. 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 No recent travel, surgeries, hospitalizations. Plan: Labs, EKG, further ER eval needed Medications Administered Discontinued Medications Generic Name Dose Route Start Last Admin Trade Name Ricco PRN Reason Stop Dose Admin Lactated Ringer's 1,000 mls @ 999 mls/hr 01/24/25 18:00 01/24/25 19:14 Lr IV 01/24/25 20:00 Infused .Q1H1M [facility] Infusion Medical Decision Making Medical Decision Making MDM Narrative: Medical Decision Makin-year-old female with orthostatic symptoms some vertiginous symptoms but this mostly appears to be related to standing up quickly she also had a syncope or near-syncope in the shower the other day no trauma sustained. No headache or chest pain or other red flag symptoms surrounding these events. She is quite symptomatic standing abruptly during my examination. Likely orthostasis/vasovagal symptomatology more likely to be benign. She is on no meds she appears clinically euvolemic but maybe intravascularly depleted with poor p.o. intake. Labs are reassuring. Plan for aggressive hydration repeat orthostatic. Preliminary Favored Differential Diagnosis: Orthostasis, vasovagal, dehydration, electrolyte derangement among additional considered etiologies Testing Interpreted Independently: ?Sinus rhythm no ischemic changes no RV strain Radiology or Lab testing Results Reviewed: ?See below for details Consults: ?See below for details Independent Historians/External Chart Reviews: ?See below for details Social Determinants of Health Impacting MDM/Planning: ?See below for details Lab Data 01/24/25 14:36 01/24/25 14:36 Labs: Lab Results 01/24/25 Range/Units 14:36 WBC 7.9 (4.8-10.8) X10*3/uL RBC 5.00 (4.20-5.50) X10*6/uL Hgb 14.6 (12.0-16.0) g/dl Hct 44.1 (37.0-47.0) % MCV 88.2 (80.0-98.0) fL MCH 29.2 (27.0-33.0) pg MCHC 33.1 (31.0-35.0) g/dl RDW 13.4 (11.0-16.0) % Plt Count 302 (160-400) X10*3/uL MPV 10.7 (9.4-12.3) fL Immature Gran % (Auto) 0.1 (0.0-0.4) % Neut % (Auto) 67.8 (45-73) % Lymph % (Auto) 23.0 (20-40) % [place] % (Auto) 7.2 (2-11) % Eos % (Auto) 1.4 (0-4) % Baso % (Auto) 0.5 (0-2) % Lymph # (Auto) 1.8 (1.2-4.9) X10*3/uL [place] # (Auto) 0.6 (0.1-1.2) X10*3/uL Eos # (Auto) 0.1 (0.0-0.4) X10*3/uL Baso # (Auto) 0.0 (0.0-0.2) X10*3/uL Abs Immat Gran (auto) 0.01 (0.00-0.03) X10*3/uL Absolute Neuts (auto) 5.4 (2.0-8.3) x10*3/uL Absolute Nucleated RBC 0.000 (0.0-0.012) X10*3/uL Nucleated RBC % (auto) 0.0 (0.0-0.2) /100WBC PT 13.1 (11.2-13.5) SEC INR 1.1 (0.9-1.1) Sodium 138 (135-145) mmol/L Potassium 4.2 (3.3-5.1) mmol/L Chloride 105 (96-108) mmol/L Carbon Dioxide 27 (22-29) mmol/L Anion Gap 10 L (12-20) BUN 11 (9-16) mg/dL Creatinine 0.73 (0.5-1.4) mg/dL Estim Creat Clear Calc 114.5 Estimated GFR > 60 Random Glucose 89 (60-115) mg/dL Calcium 9.0 (8.4-10.2) mg/dL Magnesium 2.1 (1.6-2.6) mg/dL Total Bilirubin 0.4 (0.0-1.0) mg/dL Direct Bilirubin 0.1 (0.0-0.5) mg/dL AST 18 (5-31) U/L ALT 16 (0-31) U/L Alkaline Phosphatase 92 (39-117) U/L Troponin I High Sens < 2.7 (<3.5-17.0) ng/L Total Protein 7.0 (6.5-8.0) g/dL Albumin 4.3 (3.5-5.0) g/dL TSH 0.93 (0.32-4.0) uIU/mL Beta HCG, Quant < 2 mIU/mL Influenza Type A (PCR) NEGATIVE (Negative) Influenza Type B (PCR) NEGATIVE (Negative) RSV RNA Qual (PCR) NEGATIVE (Negative) SARS-CoV-2 RNA (RT-PCR) NEGATIVE (Negative) Discharge Plan Discharge Clinical Impression: Orthostatic hypotension Patient Disposition: Home, Self-Care Instructions: Syncope (ED), Hypotension (DC) Additional Instructions: Stay well hydrated you should drink at least 2-3 L of room temperature water per day. Stay well nourished. Eat small meals throughout the day. Prescriptions: No Action dextroamphetamine-amphetamine [Adderall XR] 5 mg capsule,extended release 24hr 5 mg PO QAM 30 Days Qty: 30 0RF Rx Instructions: Partial Fill upon patient request. cyclobenzaprine 5 mg tablet 5 mg PO BEDTIME PRN (Reason: muscle spasm) Qty: 10 0RF loratadine [Claritin] 10 mg tablet 10 mg PO DAILY albuterol sulfate 90 mcg/actuation HFA aerosol inhaler 1 inh inhalation QID acetaminophen 500 mg tablet 500 mg PO Q6H PRN (Reason: pain) ibuprofen 600 mg tablet 600 mg PO Q8H PRN Interventions: ED Discharge Assessment Last Done: 01/24/25 19:23 Discharge Date/Time: 01/24/25 19:23 Print Language: Chinese
--- NOTE | 2025-01-24 14:14 | ECG_ITS ---
Test Reason : dizziness Blood Pressure : */* mmHG Vent. Rate : 91 BPM Atrial Rate : 91 BPM P-R Int : 130 ms QRS Dur : 72 ms QT Int : 348 ms P-R-T Axes : 59 61 41 degrees QTcB Int : 428 ms Normal sinus rhythm Cannot rule out Anterior infarct , age undetermined Abnormal ECG When compared with ECG of 25-Feb-2016 15:49, No significant change was found Referred By: Mary Ellen Singh Electronically Signed By: RITESH CANTU MD
[2025-01-24 14:45] LABS: MANUAL DIFF FLAG NO
[2025-01-24 14:47] LABS: Hematocrit 44.1 % (37.0-47.0); Hemoglobin 14.6 g/dl (12.0-16.0); Imm Gran Abs Auto 0.01 X10*3/uL (0.00-0.03); Imm Gran Pct Auto 0.1 % (0.0-0.4); Lymphocytes Absolute Auto 1.8 X10*3/uL (1.2-4.9); Mean Corpuscular HGB Conc 33.1 g/dl (31.0-35.0); Mean Corpuscular Hemoglobin 29.2 pg (27.0-33.0); Mean Corpuscular Volume 88.2 fL (80.0-98.0); NRBC Abs Auto 0.000 X10*3/uL (0.0-0.012); NRBC Pct Auto 0.0 /100WBC (0.0-0.2); Platelet Count 302 X10*3/uL (160-400); Red Blood Count 5.00 X10*6/uL (4.20-5.50); White Blood Count 7.9 X10*3/uL (4.8-10.8)
[2025-01-24 14:54] LABS: INTERNATIONAL NORM RATIO 1.1 (0.9-1.1); Prothrombin Time 13.1 SEC (11.2-13.5)
[2025-01-24 15:20] LABS: Alanine Aminotransferase 16 U/L (0-31); Albumin Level 4.3 g/dL (3.5-5.0); Alkaline Phosphatase 92 U/L (39-117); Anion Gap 10 (12-20); Aspartate Amino Transferase 18 U/L (5-31); Blood Urea Nitrogen 11 mg/dL (9-16); Calcium 9.0 mg/dL (8.4-10.2); Carbon Dioxide 27 mmol/L (22-29); Chloride 105 mmol/L (96-108); Creatinine Clr Calc Pharmacy 114.5; Estimated Glomerular Filt Rate > 60; Magnesium 2.1 mg/dL (1.6-2.6); Potassium 4.2 mmol/L (3.3-5.1); Sodium 138 mmol/L (135-145); Total Protein 7.0 g/dL (6.5-8.0)
[2025-01-24 15:21] LABS: Troponin-I High Sensitivity < 2.7 ng/L (<3.5-17.0)
[2025-01-24 15:25] LABS: Resp Syncy Virus RNA Qual PCR NEGATIVE (Negative); SARS COV2 PCR INHOUSE NEGATIVE (Negative)
[2025-01-24] MEDS: Lactated Ringers 1,000 ML 999 ML IV ×2 (18:10→19:10)
[2025-01-24 18:39] LABS: Thyroid Stimulating Hormone 0.93 uIU/mL (0.32-4.0)
[2025-01-24 19:23] VITALS: BP 129/80; PULSE 104; RESP 20; TEMP 36.4; O2SAT 97
--- OUTSIDE RECORDS SUMMARY | 2025-01-25 00:58 | XMS_ITS | Encounter Summary ---
Author Organization [employer] Address [address] [place] [address] Care Team Providers Care Patrol Supervisor Name Role Phone [place]ress, Delilah ANDRE Primary Care Provider [phone]- [phone] Sharifa Duncan MD Unavailable Tiffany Smith Unavailable Lito Rodas MD Unavailable Pinky Clancy RN Unavailable [phone] Yajaira López Unavailable Reason for Visit * Reason Onset Date Comments Med Refill 09/27/2023 Encounter Details Date Type Department Care Team (Late st Contact Info) Description 09/27/2023 Refill [facility] [address] [place] [address] Eliezer Urbina, DMD [address] [place] [address] Dental caries Social History Tobacco Use Types [...] Description 03/26/2025 10:30 AM EST Office Visit [facility] [address] [place] [address] Delilah Bridges MD [address] [place] [address] documented as of this encounter Visit Diagnoses Diagnosis Dental caries Unspecified dental caries documented in this encounter Additional Health Concerns Assessment Noted Time PHQ-9 Depression Total Score: 6 06/30/19 24 11:22 AM EDT documented as of this encounter Care Teams Patrol Supervisor Relationship Specialty Start Date End Date Delilah Bridges MD [address] [place] [address] PCP - General Family Medicine 02/15/18 Sharifa Duncan MD [address] [address] Sleep Medicine 01/24/24 Tiffany Smith [address] [place] [address] Gynecology 03/30/24 Lito Rodas MD [address] [place] [address] [place] [address] Obstetrics and Gynecology 04/20/24 Pinky Clancy, NITISH [address] [place] [address] Registered Nurse Family Medicine 01/24/25 Yajaira López 01/24/25 documented as of this encounter
--- OUTSIDE RECORDS SUMMARY | 2025-01-25 00:58 | XMS_ITS | Encounter Summary ---
Author Organization [employer] Address [address] [facility] 7t [place] [address] Care Team Providers Care Weather Forecaster Name Role Phone Delilah Bridges MD Primary Care Provider [phone]- [phone] Sharifa Duncan MD Unavailable Tiffany Smith Unavailable Lito Rodas MD Unavailable Pinky Clancy RN Unavailable [phone] Yajaira López Unavailable Reason for Visit * Reason Onset Date Comments Nurse Triage 06/08/2023 Encounter Details Date Type Department Care Team (Late st Contact Info) Description 06/08/[address] [facility] [address] [place], [place] [phone] Delilah Bridges MD [address] [place], [place] [phone] Nurse Triage Social History Tobacco Use Types [...] 06/08/2023 4:28 PM EDT Triage call with [facility] [employer] Associate ID [id number] Pt reports migraine which is of chronic [...] accepted this outcome Please contact pt at [phone] documented in this encounter Plan of Treatment Upcoming Encounters Date Type Department Care Team ([facility] st Contact Info) Description 03/26/2025 10:30 AM EST Office Visit [facility] [address] [place] [address] Delilah Bridges MD [address] [place] [address] documented as of this encounter Visit Diagnoses Not on filedocumented in this encounter Additional Health Concerns Assessment Noted Time PHQ-9 Depression Total Score: 3 04/30/19 23 11:45 AM EDT documented as of this encounter Care Teams Weather Forecaster Relationship Specialty Start Date End Date Delilah Bridges MD [address] [place] [address] PCP - General Family Medicine 02/15/18 Sharifa Duncan MD [address] [place] [address] Sleep Medicine 01/24/24 Tiffany Smith [address] [place] [address] Gynecology 03/30/24 Lito Rodas MD [address] [place] [address] [place] [address] Obstetrics and Gynecology 04/20/24 Pinky Clancy, NITISH [address] [place] [address] Registered Nurse Family Medicine 01/24/25 Yajaira López 01/24/25 documented as of this encounter
--- OUTSIDE RECORDS SUMMARY | 2025-01-25 00:59 | XMS_ITS | Encounter Summary ---
Author Organization [employer] Address [address] [facility] 7t [place] [address] Care Team Providers Care Payroll Tax Analyst Name Role Phone Delilah Bridges MD Primary Care Provider [phone] Sharifa Duncan MD Unavailable Tiffany Smith Unavailable Lito Rodas MD Unavailable Pinky Clancy RN Unavailable [phone] Yajaira López Unavailable Reason for Visit * Reason Onset Date Comments Med Refill 01/18/2025 Encounter Details Date Type Department Care Team (Late st Contact Info) Description 01/18/2025 Refill [facility] [address] [place], [place] [phone] Delilah Bridges MD [address] [place], [place] [phone] Class 1 obesity due to excess calories [...] Description 03/26/2025 10:30 AM EST Office Visit [facility] [address] [place] [address] Delilah Bridges MD [address] [place] [address] documented as of this encounter Visit Diagnoses Diagnosis Class 1 obesity due to excess calories without serious comorbidity with body mass index (BMI) of 34.0 to 34.9 in adult documented in this encounter Additional Health Concerns Assessment Noted Time PHQ-9 Depression Total Score: 0 11/28/19 25 10:38 AM EDT documented as of this encounter Care Teams Payroll Tax Analyst Relationship Specialty Start Date End Date Delilah Bridges MD [address] [place] [address] PCP - General Family Medicine 02/15/18 Sharifa Duncan MD [address] [address] Sleep Medicine 01/24/24 Tiffany Smith [address] [place] [address] Gynecology 03/30/24 Lito Rodas MD [address] [place] [address] [place] [address] Obstetrics and Gynecology 04/20/24 Pinky Clancy, NITISH [address] [place] [address] Registered Nurse Family Medicine 01/24/25 Yajaira López 01/24/25 documented as of this encounter
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
--- OUTSIDE RECORDS SUMMARY | 2025-01-25 00:59 | XMS_ITS | Encounter Summary ---
Author Organization [employer] [facility] Address [address] [facility] 7t [place] [address] Care Team Providers Care Data Collection Technician Name Role Phone Delilah Bridges MD Primary Care Provider [phone]- [phone] Sharifa Duncan MD Unavailable Tiffany Smith Unavailable Lito Rodas MD Unavailable Pinky Clancy RN Unavailable [phone] Yajaira López Unavailable Reason for Visit * Reason Comments Care Management C3- chart review Encounter Details Date Type Department Care Team (Late st Contact Info) Description 01/24/2025 Patient Outreach [facility] 230 [place], [place] [phone] Delilah Bridges MD 230 [place], [place] [phone] Care Management (C3- chart review) Social History Tobacco Use Types Packs/Day Years [...] AM EDT documented as of this encounter Progress Notes * Pinky Clancy RN - 01/24/2025 7:47 AM EST MARIE Clancy RN, performed chart review, in anticipation of initial assessment with patient, as patient has stratified for C3 Adult Complex Care through the ADT feed. History significant for Patient Active Problem List Diagnosis Date Noted Candidal intertrigo 06/20/2024 ASCUS of cervix with negative high risk HPV 06/19/2024 Class 1 obesity due to excess calories without serious comorbidity with body mass index (BMI) of 34.0 to 34.9 in adult 05/17/2024 Spasm of thoracic back muscle 03/14/2024 Blepharitis of left lower eyelid 12/21/2023 Dyslipidemia 10/08/2023 Narcolepsy with cataplexy 06/10/2023 Chronic sacroiliac pain 04/08/2022 Iron deficiency 04/08/2022 Vitamin D deficiency 04/08/2022 HGSIL on cytologic smear of cervix 06/30/2021 Migraine without aura 06/30/2021 Other specified health status 12/24/2022 Seasonal allergies 08/05/2022 Asthma 08/05/2022 Moderate episode of recurrent major depressive disorder (CMS/HCC) (HCC) 08/05/2022 Specialists include PT, Sleep Medicine, [facility], and Neurology. ED visits within the last 12 monthsinclude [facility] 01/[facility]/25 and [facility] 05[place]08[place]24. Last appointment in PCP office on 11/27/24. Next appointment scheduled for 03/26/25 at 10:30am for follow up with PCP. documented in this encounter Plan of Treatment Upcoming Encounters Date Type Department Care Team (Late st Contact Info) Description 03/26/2025 10:30 AM EST Office Visit [facility] 230 [place] [address] Delilah Bridges MD [address] [place] [address] documented as of this encounter Visit Diagnoses Not on filedocumented in this encounter Additional Health Concerns Assessment Noted Time PHQ-9 Depression Total Score: 0 11/28/19 10:38 AM EDT documented as of this encounter Care Teams Data Collection Technician Relationship Specialty Start Date End Date Delilah Bridges MD 230 [place] [address] PCP - General Family Medicine 02/15/18 Sharifa Duncan MD 100 [facility] [address] [place] [address] Sleep Medicine 01/24/24 Tiffany Smith [address] [place] [address] [place] [address] Gynecology 03/30/24 Lito Rodas MD [address] [place] [address] Obstetrics and Gynecology 04/20/24 Pinky Clancy RN [address] [place] [address] Registered Nurse Family Medicine 01/24/25 Yajaira López 01/24/25 documented as of this encounter
--- OUTSIDE RECORDS SUMMARY | 2025-01-25 00:59 | XMS_ITS | Encounter Summary ---
Author Organization [employer] Address 75 [facility] 7t [place] [address] Care Team Providers Care Clinical Outcomes Manager Name Role Phone Delilah Bridges MD Primary Care Provider [phone]- [phone] Sharifa Duncan MD Unavailable Tiffany Smith Unavailable Lito Rodas MD Unavailable Reason for Visit * Reason Onset Date Comments Nurse Triage 01/23/2025 Encounter Details Date Type Department Care Team (Late st Contact Info) Description 01/23/2025 Telephone [facility]INE 230 [place] [address] Delilah Bridges MD 230 [place], [place] [phone] Nurse Triage Social History Tobacco Use Types [...] pt to triage, spoke to pt through [employer] Worker. Pt states was in the bathroom getting [...] caller accepted this outcome. Contact pt at [phone] (upper sorbian) documented in this encounter Plan of Treatment Upcoming Encounters Date Type Department Care Team ([facility] st Contact Info) Description 03/26/2025 10:30 AM EST Office Visit [facility] 230 [place] [address] Delilah Bridges MD 230 [place] [address] documented as of this encounter Visit Diagnoses Not on filedocumented in this encounter Additional Health Concerns Assessment Noted Time PHQ-9 Depression Total Score: 0 11/28/19 10:38 AM EDT documented as of this encounter Care Teams Clinical Outcomes Manager Relationship Specialty Start Date End Date Delilah Bridges MD 230 [place] [address] PCP - General Family Medicine 02/15/18 Sharifa Duncan MD [address] [address] Sleep Medicine 01/24/24 Tiffany Smith [address] [place] [address] Gynecology 03/30/24 Lito Rodas MD [address] [place] [address] [place] [address] Obstetrics and Gynecology 04/20/24 documented as of this encounter
--- OUTSIDE RECORDS SUMMARY | 2025-01-25 00:59 | XMS_ITS ---
Author Organization [employer] Address 75 [facility] 7t [place] [address] Care Team Providers Care Commercial Estimator Name Role Phone [place], Delilah ANDRE Primary Care Provider [phone]- [phone] Sharifa Duncan MD Unavailable Tiffany Smith Unavailable Lito Rodas MD Unavailable Pinky Clancy RN Unavailable [phone] Yajaira López Unavailable CM Complex Status:Outreach In Progress (Enrolling) Start date:01/24/2025 Enrollment reason:ADT Feed Overview ED- Pt went [facility] on 01/23/25. Case Team Name Relationship Phone Pinky Clancy RN(Responsible Staff) Registered Nurse [phone] Continued Care and Services Coordination
--- OUTSIDE RECORDS SUMMARY | 2025-01-25 00:59 | XMS_ITS | Encounter Summary ---
Author Organization [employer] Address 75 [facility] 7t [place] [address] Care Team Providers Care Assault Boat Coxswain Name Role Phone Delilah Bridges MD Primary Care Provider [phone]- [phone] Sharifa Duncan MD Unavailable Tiffany Smith Unavailable Lito Rodas MD Unavailable Pinky Clancy RN Unavailable [phone] Yajaira López Unavailable Reason for Visit * Reason Onset Date Comments Med Refill 08/16/2024 Encounter Details Date Type Department Care Team (Late st Contact Info) Description 08/16/2024 Refill [facility] 230 [place], [place] [phone] Delilah Bridges MD 230 [place], [place] [phone] Class 1 obesity due to excess calories [...] 10:30 AM EST Office Visit [facility] 230 [place] [address] Delilah Bridges MD 230 [place] [address] documented as of this encounter Visit Diagnoses Diagnosis Class 1 obesity due to excess calories without serious comorbidity with body mass index (BMI) of 34.0 to 34.9 in adult documented in this encounter Additional Health Concerns Assessment Noted Time PHQ-9 Depression Total Score: 11 025 11:57 AM EDT documented as of this encounter Care Teams Assault Boat Coxswain Relationship Specialty Start Date End Date Delilah Bridges MD [address] [place] [address] PCP - General Family Medicine 02/15/18 Sharifa Duncan MD [address] [address] Sleep Medicine 01/24/24 Tiffany Smith [address] [place] [address] Gynecology 03/30/24 Lito Rodas MD [address] [place] [address] [place] [address] Obstetrics and Gynecology 04/20/24 Pinky Clancy, NITISH [address] [place] [address] Registered Nurse Family Medicine 01/24/25 Yajaira López 01/24/25 documented as of this encounter
--- OUTSIDE RECORDS SUMMARY | 2025-01-25 00:59 | XMS_ITS | Encounter Summary ---
Author Organization [employer] Address [address] [facility] [address] 7t [place] [address] Care Team Providers Care Head Of Talent Management Name Role Phone Cyrus, Delilah ANDRE Primary Care Provider [phone]- [phone] Sharifa Duncan MD Unavailable Tiffany Smith Unavailable [...] Description 03/26/2025 10:30 AM EST Office Visit [facility] 230 [place] [address] Delilah Bridges MD 230 [place] [address] Pending Results Name Type Priority Associated Diagnoses Date /Time Culture, Urine, Routine Microbiology Routine 01/23/2025 12:00 AM EST documented as of this encounter Procedures Procedure [...] METABOLIC PANEL Routine 01/23/2025 6:20 PM EST CULTURE, URINE, ROUTINE Routine 01/23/2025 12:00 AM EST documented in this encounter Results * hCG, Total, Quantitative (01/23/2025 6:20 PM EST) HCG Quantitative <2 mIU/mL [facility] Comment:Weeks post LMP Appro ximate hCG(Last Menstrual Period) Range (mIU/ml)3 - 4 weeks 9 - 1304 - 5 weeks 75 - 2,6005 - 6 weeks 850 - 20,8006 - 7 weeks 4000 - 100,2007 - 12 weeks 11,500 - 289,17966 - 16 weeks 18,300 - 137,80077 - 29 weeks (2nd trimester) 1,400 - 53,46651 - 41 weeks (3rd trimester) 940 - [...] Provider LAB BLOOD ORDERAB LES Final Result [facility] [address] [place] [phone] * (ABNORMAL) Urinalysis, Complete, with Reflex to Culture (01/23/2025 6:20 PM EST) Color Urine Yellow [facility] Appearance Urine Cloudy [facility] PH 5.5 5.0 - 9.0 [facility] Glucose Urine UA Negative Negative mg/dL [facility] Urine Blood Negative Negative [facility] Specific [place] - Urine 1.020 1.005 - 1.025 [facility] Urine Protein Negative Neg-Trace mg/dL [facility] Urine Ketones Negative Negative mg/dL [facility] Nitrite Urine Positive(A) Negative [facility] Leukocyte Esterase Urine Trace(A) Negative [facility] RBC Urine 3-5(A) 0 - 2 /HPF [facility] Urine WBC 11-20(A) 0 - 5 /HPF [facility] Urine Squamous Epithelial Cell >20 0 - 2 /HPF [facility] Urine Bacteria 4+ None Seen [facility] Hyaline Casts, Urine 0-2 0 - 2 /LPF [facility] 01/23/2025 6:20 PM EST 01/23/2025 6:23 PM EST Narrative [facility] - 01/23/2025 7:03 PM EST [id number], Clean C[employer] us Generic External Data Provider LAB URINE ORDERAB LES Final Result [facility] [address] [place] [phone] * (ABNORMAL) Comprehensive Metabolic Panel (01/23/2025 6:20 PM EST) Sodium 141 135 - 145 mmol/L [facility] Potassium 4.3 3.3 - 5.1 mmol/L [facility] Chloride 108 96 - 108 mmol/L [facility] Carbon Dioxide 28 22 - 29 mmol/L [facility] Anion Gap 9(L) 12 - 20 [facility] Urea Nitrogen (BUN) 9 9 - 16 mg/dL [facility] Creatinine, Serum 0.70 0.5 - 1.4 mg/dL [facility] Creatinine Clr Calc Pharmacy 120.0 [facility] Comment:Provided height and weight: 167.64 cm,83.9 kg.eGFR (calculated from the MDRD study equation) and eCrCl(calculated from the Cockcroft-Gault equation) are based ondifferent parameters and may not yield comparable results.If eCrCl result is absurd, please check patient'sheight/weight. Estimated Glomerular Filt Rate >60 [facility] Comment:Chronic Kidney Disea se: Estimated GFR < 60 mL/min/1.91f5Efjqau Kidney Disease: Estimated GFR < 15 mL/min/1.73m2 Glucose 75 60 - 115 mg/dL [facility] Calcium 9.2 8.4 - 10.2 mg/dL [facility] Bilirubin, Total 0.2 0.0 - 1.0 mg/dL [facility] Aspartate Amino Transferase 17 5 - 31 U/L [facility] Alanine Aminotransferase 18 0 - 31 U/L [facility] Total Protein 7.1 6.5 - 8.0 g/dL [facility] Albumin Level 4.4 3.5 - 5.0 g/dL [facility] Alkaline Phosphatase 88 39 - 117 U/L [facility] 01/23/2025 6:20 PM EST 01/23/2025 6:23 PM EST us Generic External Data Provider LAB BLOOD ORDERAB LES Final Result Performing Organization Address City/[facility]/ZIP Co de Phone Number [facility] [address] [place] [address] [phone] * High Sensitivity Troponin I (01/23/2025 6:20 PM EST) TROPONIN I HIGH SENSITIVITY <2.7 <3.5 - 17.0 ng/L [facility] Comment:The Wayne high sens itivity Troponin-I results should beused in conjunction with other diagnostic information suchas ECG, clinical observations and information, and patientsymptoms to aid in the diagnosis of [place]. 01/23/2025 6:20 PM EST 01/23/2025 6:23 PM EST us Generic External Data Provider LAB BLOOD ORDERAB LES Final Result Performing Organization Address [facility]/ZIP Co de Phone Number [facility] [address] [place] [address] [phone] * HCG, Qualitative, Urine (01/23/2025 6:20 PM EST) Urine NEGATIVE NEGATIVE [facility] Comment:This test was develo ped to detect early . Falsenegative results may occur after the 5th - 7th week ofpregnancy when using this test method. If clinicallyindicated, consider a serum hCG. 01/23/2025 6:20 PM EST 01/23/2025 6:23 PM EST Generic External Data Provider LAB URINE ORDERAB LES Final Result Performing Organization Address [facility] Co de Phone Number [facility] [address] [place] [phone] * Partial Thromboplastin Time, Activated (APTT) (01/23/2025 6:20 PM EST) Partial Thromboplastin Time 28.6 26.7 - 34.1 SEC [facility] 01/23/2025 6:20 PM EST 01/23/2025 6:23 PM EST Generic External Data Provider LAB BLOOD ORDERAB LES Final Result Performing Organization Address [facility] de Phone Number [facility] [address] [place] [phone] * Prothrombin Time-INR (01/23/2025 6:20 PM EST) Prothrombin Time 12.8 11.2 - 13.5 SEC [facility] INTERNATIONAL NORM RATIO 1.0 0.9 - 1.1 [facility] Comment:INTERNATIONAL NORMAL IZED RATIO (INR) REFERENCE [...] Provider LAB BLOOD ORDERAB LES Final Result [facility] [address] [place] [address] [phone] * CBC auto differential (01/23/2025 6:20 PM EST) White Blood Count 9.3 4.8 - 10.8 X10*3/uL [facility] Red Blood Count 4.99 4.20 - 5.50 X10*6/uL [facility] Hemoglobin 14.5 12.0 - 16.0 g/dl [facility] Hematocrit 44.4 37.0 - 47.0 % [facility] Mean Corpuscular Volume 89.0 80.0 - 98.0 fL [facility] Mean Corpuscular Hemoglobin 29.1 27.0 - 33.0 pg [facility] Mean Corpuscular HGB Conc 32.7 31.0 - 35.0 g/dl [facility] Red Cell Distribution Width 13.5 11.0 - 16.0 % [facility] Platelet Count 304 160 - 400 X10*3/uL [facility] Mean Platelet Volume 10.9 9.4 - 12.3 fL [facility] Neutrophils Percent Auto 68.6 45 - 73 % [facility] Imm Gran Pct Auto 0.3 0.0 - 0.4 % [facility] Lymphocytes Percent Auto 21.8 20 - 40 % [facility] Monocytes Percent Auto 7.5 2 - 11 % [facility] Eosinophils Percent Auto 1.3 0 - 4 % [facility] Basophils Percent Auto 0.5 0 - 2 % [facility] NRBC Pct Auto 0.0 0.0 - 0.2 /100WBC [facility] Neutrophils Absolute Auto 6.4 2.0 - 8.3 x10*3/uL [facility] Imm Gran Abs Auto 0.03 0.00 - 0.03 X10*3/uL [facility] Lymphocytes Absolute Auto 2.0 1.2 - 4.9 X10*3/uL [facility] Monocytes Absolute Auto 0.7 0.1 - 1.2 X10*3/uL [facility] Eosinophils Absolute Auto 0.1 0.0 - 0.4 X10*3/uL [facility] Basophils Absolute Auto 0.1 0.0 - 0.2 X10*3/uL [facility] NRBC Abs Auto 0.000 0.0 - 0.012 X10*3/uL [facility] 01/23/2025 6:20 PM EST 01/23/2025 6:23 PM EST us Generic External Data Provider LAB BLOOD ORDERAB LES Final Result [facility] [address] [place] [address] [phone] documented in this encounter Visit Diagnoses Not on filedocumented in this encounter Additional Health Concerns Assessment Noted Time PHQ-9 Depression Total Score: 0 11/28/19 25 10:38 AM EDT documented as of this encounter Care Teams Head Of Talent Management Relationship Specialty Start Date End Date Delilah Bridges MD [address] [place] [address] PCP - General Family Medicine 02/15/18 Sharifa Duncan MD [address] [address] Sleep Medicine 01/24/24 Tiffany Smith [address] [place] [address] Gynecology 03/30/24 Lito Rodas MD [address] [place] [address] [place] [address] Obstetrics and Gynecology 04/20/24 documented as of this encounter
--- OUTSIDE RECORDS SUMMARY | 2025-01-25 00:59 | XMS_ITS | Encounter Summary ---
Author Organization [employer] [facility] Address [address] [facility] 7t [place] [address] Care Team Providers Care Fruit Rancher Name Role Phone Delilah Bridges MD Primary Care Provider Sharifa Duncan MD Unavailable Tiffany Smith Unavailable Lito Rodas MD Unavailable Pinky Clancy RN Unavailable [phone] Yajaira López Unavailable Encounter Details Date Type Department Care Team (Late st Contact Info) Description 03/26/2022 Abstract [facility] [address] [place] [address] [phone] Delilah Bridges MD [address] [place] [address] [phone] Social History Tobacco Use Types Packs/Day Years [...] Description 03/26/2025 10:30 AM EST Office Visit [facility] [address] [place] [address] [phone] Delilah Bridges MD [address] [place] [address] [phone] documented as of this encounter Procedures Procedure Name Priority Date/Time Associated Diagnosis Comments PAP SMEAR Routine 09/08/2021 12:00 AM EDT documented in this encounter Results * Pap Smear (09/08/2021 12:00 AM EDT) Swab us Historical Provider LAB CYTOLOGY ORDERABLES F inal Result IMAGING documented in this encounter Visit Diagnoses Not on filedocumented in this encounter Care Teams Fruit Rancher Relationship Specialty Start Date End Date Delilah Bridges MD [address] [place] [address] [phone] PCP - General Family Medicine 02/15/18 Sharifa Duncan MD [address] [address] Sleep Medicine 01/24/24 Tiffany Smith [address] [place] [address] Gynecology 03/30/24 Lito Rodas MD [address] [place] [address] Obstetrics and Gynecology 04/20/24 Pinky Clancy, NITISH [address] [place] [address] Registered Nurse Family Medicine 01/24/25 Yajaira López 01/24/25 documented as of this encounter
--- OUTSIDE RECORDS SUMMARY | 2025-01-25 00:59 | XMS_ITS | Encounter Summary ---
Author Organization [employer] Address [address] [facility] 7t [place] [address] Care Team Providers Care Automatic Corn Grinder Operator Name Role Phone Delilah Bridges MD Primary Care Provider [phone] Sharifa Duncan MD Unavailable Tiffany Smith Unavailable Lito Rodas MD Unavailable Pinky Clancy RN Unavailable [phone] Yajaira López Unavailable Reason for Visit * Reason Comments Care Coordination CHW chart review Encounter Details Date Type Department Care Team (Latest Contact Info) Description 01/24/2025 Patient Outreach [facility] [address] [place], [place] [phone] Delilah Bridges MD 230 [place], [place] [phone] Care Coordination (CHW chart review) Social History Tobacco Use Types [...] as of this encounter Progress Notes * Yajaira López - 01/24/2025 8:51 AM EST CM/C3 EVELYNW Yajaira López Chart review CHW Yajaira López reviewed chart review completed by MARIE Clancy RN, performed chart review, in [...] (HCC) 08/05/2022 Specialists include PT, Sleep Medicine, [facility], and Neurology. ED visits within the last 12 monthsinclude [facility] 01/23/25 and [facility] 05/08/24. Last appointment in PCP office on 11/27/24. Next appointment scheduled for 03/26/25 at 10:30am for follow up with PCP. documented in this encounter Plan of Treatment Upcoming Encounters Date Type Department Care Team (Late st Contact Info) Description 03/26/2025 10:30 AM EST Office Visit [facility] [address] [place] [address] Delilah Bridges MD 230 [place] [address] documented as of this encounter Visit Diagnoses Not on filedocumented in this encounter Additional Health Concerns Assessment Noted Time PHQ-9 Depression Total Score: 0 11/28/19 10:38 AM EDT documented as of this encounter Care Teams Automatic Corn Grinder Operator Relationship Specialty Start Date End Date Delilah Bridges MD [address] [place] [address] PCP - General Family Medicine 02/15/18 Sharifa Duncan MD 100 [facility] [address] [place] [address] Sleep Medicine 01/24/24 Tiffany Smith [address] [address] Gynecology 03/30/24 Lito Rodas MD [address] [place] [address] [place] [address] Obstetrics and Gynecology 04/20/24 Pinky Clancy RN [address] [place] [address] Registered Nurse Family Medicine 01/24/25 Yajaira López 01/24/25 documented as of this encounter
--- OUTSIDE RECORDS SUMMARY | 2025-01-25 00:59 | XMS_ITS | Encounter Summary ---
Author Organization [employer] Address 75 [facility] [address] 7t [place] [address] Care Team Providers Care Veterinary Surgery Technician Name Role Phone Cyrus, Delilah ANDRE Primary Care Provider [phone]- [phone] Sharifa Duncan MD Unavailable Tiffany Smith Unavailable Lito Rodas MD Unavailable Pinky Clancy RN Unavailable [phone] Yajaira López Unavailable Encounter Details Date Type Department Care Team (Late st Contact Info) Description 01/24/2025 Orders Only GENERIC EXTERNAL DATA [...] Description 03/26/2025 10:30 AM EST Office Visit [facility] [address] [place] [address] Delilah Bridges MD 230 [place] [address] documented as of this encounter Procedures Procedure Name Priority Date/Time Associated Diagnosis Comments HIGH SENSITIVITY TROPONIN I Routine 01/24/2025 2:36 PM EST SARS COV2/INFLUENZA A/B AND RSV RNA QL NAAT Routine 01/24/2025 2:36 PM EST CBC WITH AUTO DIFFERENTIAL Routine 01/24/2025 2:36 PM EST PROTHROMBIN TIME-INR Routine 01/24/2025 2:36 PM EST HCG, TOTAL, QN Routine 01/24/2025 2:36 PM EST TSH Routine 01/24/2025 2:36 PM EST MAGNESIUM Routine 01/24/2025 2:36 PM EST HEPATIC FUNCTION PANEL Routine 01/24/2025 2:36 PM EST BASIC METABOLIC PANEL Routine 01/24/2025 2:36 PM EST documented in this encounter Results * TSH (01/24/2025 2:36 PM EST) Thyroid Stimulating Hormone 0.93 0.32 - 4.0 uIU/mL [facility] Comment:TSH 3rd Generation ( [facility]) 01/24/2025 2:36 PM EST 01/24/2025 2:43 PM EST us Generic External Data Provider LAB BLOOD ORDERAB LES Final Result [facility] [address] [place] [address] [phone] * SARS-CoV-2 RNA, Influenza A/B, and RSV RNA, Ql NAAT (01/24/2025 2:36 PM EST) Influenza A PCR NEGATIVE Negative [facility] Influenza B PCR NEGATIVE Negative [facility] Resp Syncy Virus RNA Qual PCR NEGATIVE Negative [facility] SARS COV2 PCR NEGATIVE Negative [facility] Comment:All test results mus t [...] use by authorized laboratories.Testing performed on the [employer] GeneXpert utilizingreal-time RT-PCR.All SARS CoV2 and positive influenza A/B results arereported to [facility]. 01/24/2025 2:36 PM EST 01/24/2025 2:43 PM EST Generic External Data Provider LAB MICROBIOLOGY - GENERAL ORDERABLES Final Result Performing Organization Address [facility] de Phone Number [facility] [address] [place] [phone] * High Sensitivity Troponin I (01/24/2025 2:36 PM EST) Pathologist [facility] TROPONIN I HIGH SENSITIVITY <2.7 <3.5 - 17.0 ng/L [facility] Comment:The [facility] high sens itivity Troponin-I results should beused in conjunction with other diagnostic information suchas ECG, clinical observations and information, and patientsymptoms to aid in the diagnosis of NE. 01/24/2025 2:36 PM EST 01/24/2025 2:43 PM EST Generic External Data Provider LAB BLOOD ORDERAB LES Final Result Performing Organization Address [facility] de Phone Number [facility] [address] [place] [phone] * hCG, Total, Quantitative (01/24/2025 2:36 PM EST) Pathologist [facility] HCG Quantitative <2 mIU/mL [facility] Comment:Weeks post LMP Appr oximate hCG(Last Menstrual Period) Range (mIU/ml)3 - 4 weeks 9 - 1304 - 5 weeks 75 - 2,6005 - 6 weeks 850 - 20,8006 - 7 weeks 4000 - 100,2007 - 12 weeks 11,500 - 289,41633 - 16 weeks 18,300 - 137,54744 - 29 weeks (2nd trimester) 1,400 - 53,11792 - 41 weeks (3rd trimester) 940 - 60,000The [facility] B-hCG assay is used for the early detection ofpregnancy; it cannot be used to diagnose any conditionunrelated to . If a B-hCG level is not supportedby the clinical evidence, results should be confirmed by analternative method (qualitative urine hCG, for example). 01/24/2025 2:36 PM EST 01/24/2025 2:43 PM EST us Generic External Data Provider LAB BLOOD ORDERAB LES Final Result Performing Organization Address [facility] de Phone Number [facility] [address] [place] [phone] * Magnesium (01/24/2025 2:36 PM EST) Magnesium 2.1 1.6 - 2.6 mg/dL [facility] 01/24/2025 2:36 PM EST 01/24/2025 2:43 PM EST Generic External Data Provider LAB BLOOD ORDERAB LES Final Result Performing Organization Address [facility] de Phone Number [facility] [address] [place] [address] [phone] * (ABNORMAL) Basic Metabolic Panel (01/24/2025 2:36 PM EST) Sodium 138 135 - 145 mmol/L [facility] Potassium 4.2 3.3 - 5.1 mmol/L [facility] Chloride 105 96 - 108 mmol/L [facility] Carbon Dioxide 27 22 - 29 mmol/L [facility] Anion Gap 10(L) 12 - 20 [facility] Urea Nitrogen (BUN) 11 9 - 16 mg/dL [facility] Creatinine, Serum 0.73 0.5 - 1.4 mg/dL [facility] Creatinine Clr Calc Pharmacy 114.5 [facility] Comment:Provided height and weight: 167.64 cm,83 kg.eGFR (calculated from the MDRD study equation) and eCrCl(calculated from the Cockcroft-Gault equation) are based ondifferent parameters and may not yield comparable results.If eCrCl result is absurd, please check patient'sheight/weight. Estimated Glomerular Filt Rate >60 [facility] Comment:Chronic Kidney Disea se: Estimated GFR < 60 mL/min/1.91g6Qugkfy Kidney Disease: Estimated GFR < 15 mL/min/1.73m2 Glucose 89 60 - 115 mg/dL [facility] Calcium 9.0 8.4 - 10.2 mg/dL [facility] 01/24/2025 2:36 PM EST 01/24/2025 2:43 PM EST Generic External Data Provider LAB BLOOD ORDERAB LES Final Result Performing Organization Address [facility] de Phone Number [facility] [address] [place] [phone] * Hepatic Function Panel (01/24/2025 2:36 PM EST) Bilirubin, Total 0.4 0.0 - 1.0 mg/dL [facility] Bilirubin, Direct 0.1 0.0 - 0.5 mg/dL [facility] Aspartate Amino Transferase 18 5 - 31 U/L [facility] Alanine Aminotransferase 16 0 - 31 U/L [facility] Total Protein 7.0 6.5 - 8.0 g/dL [facility] Albumin Level 4.3 3.5 - 5.0 g/dL [facility] Alkaline Phosphatase 92 39 - 117 U/L [facility] 01/24/2025 2:36 PM EST 01/24/2025 2:43 PM EST [employer] External Data Provider LAB BLOOD ORDERAB LES Final Result Performing Organization Address [facility] de Phone Number [facility] [address] [place] [phone] * Prothrombin Time-INR (01/24/2025 2:36 PM EST) Prothrombin Time 13.1 11.2 - 13.5 SEC [facility] INTERNATIONAL NORM RATIO 1.1 0.9 - 1.1 [facility] Comment:INTERNATIONAL NORMAL IZED RATIO (INR) [...] Provider LAB BLOOD ORDERAB LES Final Result [facility] [address] [place] [address] [phone] * CBC auto differential (01/24/2025 2:36 PM EST) White Blood Count 7.9 4.8 - 10.8 X10*3/uL [facility] Red Blood Count 5.00 4.20 - 5.50 X10*6/uL [facility] Hemoglobin 14.6 12.0 - 16.0 g/dl [facility] Hematocrit 44.1 37.0 - 47.0 % [facility] Mean Corpuscular Volume 88.2 80.0 - 98.0 fL [facility] Mean Corpuscular Hemoglobin 29.2 27.0 - 33.0 pg [facility] Mean Corpuscular HGB Conc 33.1 31.0 - 35.0 g/dl [facility] Red Cell Distribution Width 13.4 11.0 - 16.0 % [facility] Platelet Count 302 160 - 400 X10*3/uL [facility] Mean Platelet Volume 10.7 9.4 - 12.3 fL [facility] Neutrophils Percent Auto 67.8 45 - 73 % [facility] Imm Gran Pct Auto 0.1 0.0 - 0.4 % [facility] Lymphocytes Percent Auto 23.0 20 - 40 % [facility] Monocytes Percent Auto 7.2 2 - 11 % [facility] Eosinophils Percent Auto 1.4 0 - 4 % [facility] Basophils Percent Auto 0.5 0 - 2 % [facility] NRBC Pct Auto 0.0 0.0 - 0.2 /100WBC [facility] Neutrophils Absolute Auto 5.4 2.0 - 8.3 x10*3/uL [facility] Imm Gran Abs Auto 0.01 0.00 - 0.03 X10*3/uL [facility] Lymphocytes Absolute Auto 1.8 1.2 - 4.9 X10*3/uL [facility] Monocytes Absolute Auto 0.6 0.1 - 1.2 X10*3/uL [facility] Eosinophils Absolute Auto 0.1 0.0 - 0.4 X10*3/uL [facility] Basophils Absolute Auto 0.0 0.0 - 0.2 X10*3/uL [facility] NRBC Abs Auto 0.000 0.0 - 0.012 X10*3/uL [facility] 01/24/2025 2:36 PM EST 01/24/2025 2:43 PM EST us Generic External Data Provider LAB BLOOD ORDERAB LES Final Result [facility] [address] [place] [address] [phone] documented in this encounter Visit Diagnoses Not on filedocumented in this encounter Additional Health Concerns Assessment Noted Time PHQ-9 Depression Total Score: 0 11/28/19 25 10:38 AM EDT documented as of this encounter Care Teams Veterinary Surgery Technician Relationship Specialty Start Date End Date Delilah Bridges MD [address] [place] [address] PCP - General Family Medicine 02/15/18 Sharifa Duncan MD [address] [address] Sleep Medicine 01/24/24 Tiffany Smith [address] [place] [address] Gynecology 03/30/24 Lito Rodas MD [address] [place] [address] [address] [place] [address] Obstetrics and Gynecology 04/20/24 Pinky Clancy RN [address] [place] [address] [place] [address] Registered Nurse Family Medicine 01/24/25 Yajaira López 01/24/25 documented as of this encounter
--- OUTSIDE RECORDS SUMMARY | 2025-01-25 00:59 | XMS_ITS | Encounter Summary ---
Author Organization [employer] Address 75 [facility] 7t [place] [address] Care Team Providers Care Egg Gatherer Name Role Phone Delilah Bridges MD Primary Care Provider [phone]- [phone] Sharifa Duncan MD Unavailable Tiffany Smith Unavailable Lito Rodas MD Unavailable Pinky Clancy RN Unavailable [phone] Yajaira López Unavailable Encounter Details Date Type Department Care Team (Late st Contact Info) Description 01/24/2025 Patient Outreach [facility] [address] [place], [place] [phone] Delilah Bridges MD [address], [place] [phone] Social History Tobacco Use Types Packs/Day Years [...] the past 12 months, has t he [employer], gas, oil or water [employer] threatened to shut off services in your [...] Description 03/26/2025 10:30 AM EST Office Visit [facility] [address] [place] [address] Delilah Bridges MD [address] [place] [address] documented as of this encounter Visit Diagnoses Not on filedocumented in this encounter Additional Health Concerns Assessment Noted Time PHQ-9 Depression Total Score: 0 11/28/19 25 10:38 AM EDT documented as of this encounter Care Teams Egg Gatherer Relationship Specialty Start Date End Date Delilah Bridges MD [address] [place] [address] PCP - General Family Medicine 02/15/18 Sharifa Duncan MD 100 [facility] [address] [place] [address] Sleep Medicine 01/24/24 Sarah Tiffany [address] [place] [address] Gynecology 03/30/24 Lito Rodas MD [address] [place] [address] [place] [address] Obstetrics and Gynecology 04/20/24 Pinky Clancy, NITISH [address] [place] [address] Registered Nurse Family Medicine 01/24/25 Yajaira López 01/24/25 documented as of this encounter
--- OUTSIDE RECORDS SUMMARY | 2025-01-25 00:59 | XMS_ITS | Encounter Summary ---
Author Organization [employer] [facility] Address 75 [facility] 7t [place] [address] Care Team Providers Care Collections Professional Name Role Phone Delilah Bridges MD Primary Care Provider [phone] Sharifa Duncan MD Unavailable Tiffany Smith Unavailable Lito Rodas MD Unavailable Pinky Clancy RN Unavailable [phone] Yajaira López Unavailable Reason for Visit * Reason Onset Date Comments Nurse Triage 01/24/2025 Encounter Details Date Type Department Care Team (Late st Contact Info) Description 01/24/2025 Telephone [facility] [address] [place], [place] [phone] Delilah Bridges MD [address] [place], [place] [phone] Nurse Triage Social History Tobacco Use Types [...] the past 12 months, has t he [email or web address], gas, oil or water [employer] threatened to shut off services in your [...] encounter Miscellaneous Notes * Telephone Encounter - Mara Aguilar RN - 01/24/2025 1:12 PM EST Noted pt. Called to report syncopal episode yesterday that occurred 2 days ago now, pt. Was advisedto seek emergency care and went to [facility] reporting the syncope occurred in the shower and was still feeling lightheaded. Bloodwork and UA were performed, bloodwork normal but UA showed + nitrites, trace leukocytes, high WBC, and 4+ bacteria. Pt. Left without treatment. TC returned to pt. Pt. Reports she continues to feel constant lightheadedness even at rest, headache and fatigue. Inquired about urinary symptoms and pt. Reports only strongly malodorous urine, no other urinary symptoms. Advised pt. Based on symptoms, recommended is to return to ED. Pt. Agrees to plan and states she will seek care at a different ED aside from [facility], reports she waited 4:30p- 12a without seeing provider. Pt. Is unsure which ED she will be going to but will f/up after discharge prn. Protocol Used: Fainting (Adult) Protocol-Based Disposition: Go to ED Now Positive Triage Question: * Fainted > 15 minutes ago and still feels weak or dizzy * All higher-acuity triage questions were negative. * Telephone Encounter - Jaz López - 01/24/2025 11:10 AM EST Symptoms: Fainted (Passed Out), Headache Outcome: Schedule an urgent appointment (within 1 hour) or talk to a nurse or provider soon Reason: Caller denied all higher acuity questions Please contact at [phone] Israeli speak documented in this encounter Plan of Treatment Upcoming Encounters Date Type Department Care Team (Late st Contact Info) Description 03/26/2025 10:30 AM EST Office Visit [facility] [address] [place] [address] Delilah Bridges MD [address] [place] [address] documented as of this encounter Visit Diagnoses Not on filedocumented in this encounter Additional Health Concerns Assessment Noted Time PHQ-9 Depression Total Score: 0 11/28/19 25 10:38 AM EDT documented as of this encounter Care Teams Collections Professional Relationship Specialty Start Date End Date Delilah Bridges MD [address] [place] [address] PCP - General Family Medicine 02/15/18 Sharifa Duncan MD [address] [facility] [address] [facility] [address] [place] [address] Sleep Medicine 01/24/24 Tiffany Smith [address] [address] Gynecology 03/30/24 Lito Rodas MD [address] [place] [address] [place] [address] Obstetrics and Gynecology 04/20/24 Pinky Clancy RN [address] [place] [address] Registered Nurse Family Medicine 01/24/25 Yajaira López 01/24/25 documented as of this encounter
--- OUTSIDE RECORDS SUMMARY | 2025-01-25 00:59 | XMS_ITS | Encounter Summary ---
Author Organization [employer] Address 75 [facility] 7t [place] [address] Care Team Providers Care Car Unloader Helper Name Role Phone Delilah Bridges MD Primary Care Provider [phone] Sharifa Duncan MD Unavailable Tiffany Smith Unavailable Lito Rodas MD Unavailable Pinky Clancy RN Unavailable [phone] Yajaira López Unavailable Reason for Visit * Reason Onset Date Comments Nurse Triage 03/23/2023 Encounter Details Date Type Department Care Team (Late st Contact Info) Description 03/23/2023 Telephone [facility] [address] [place], [place] [phone] Delilah Bridges MD 230 [place], [place] [phone] Nurse Triage Social History Tobacco Use Types [...] 03/23/2023 1:38 PM EST Triage call with [employer] Estimator ID [id number]. Pt reports a lump greater than the size of ping pong ball has erupted on the middle of forehead over night. Pt reports some redness, warm to touch but, not painful. Pt reports it has a feeling of pressure and has been having headaches. Pt has hx of bells palsy for 7 years. Pt is advised to come to [facility] today , open till 8pm, [...] accepted this outcome Please contact pt at [phone] (kenyan) documented in this encounter Plan of Treatment Upcoming Encounters Date Type Department Care Team ([facility] st Contact Info) Description 03/26/2025 10:30 AM EST Office Visit [facility] [address] [place] [address] Delilah Bridges MD 230 [place] [address] documented as of this encounter Visit Diagnoses Not on filedocumented in this encounter Additional Health Concerns Assessment Noted Time PHQ-9 Depression Total Score: 3 04/30/19 23 11:45 AM EDT documented as of this encounter Care Teams Car Unloader Helper Relationship Specialty Start Date End Date Delilah Bridges MD [address] [place] [address] PCP - General Family Medicine 02/15/18 Sharifa Duncan MD [address] [place] [address] Sleep Medicine 01/24/24 Tiffany Smith [address] [place] [address] Gynecology 03/30/24 Lito Rodas MD [address] [place] [address] Obstetrics and Gynecology 04/20/24 Pinky Clancy, RN [address] [place] [address] Registered Nurse Family Medicine 01/24/25 Yajaira López 01/24/25 documented as of this encounter
--- OUTSIDE RECORDS SUMMARY | 2025-01-25 00:59 | XMS_ITS | Encounter Summary ---
Author Organization [employer] Address [address] [facility] [address] 7t [place] [address] Care Team Providers Care Sonography Technician Name Role Phone Gallia, Delilah ANDRE Primary Care Provider [phone] Sharifa Duncan MD Unavailable Tiffany Smith Unavailable Lito Rodas MD Unavailable Pinky Clancy RN Unavailable [phone] Yajaira López Unavailable Reason for Visit * Reason Comments Med Refill Encounter Details Date Type Department Care Team (Late st Contact Info) Description 04/29/2024 Refill [facility] [address] [place] [address] [phone] Marbella Alcaraz MD 230 [place], [place] [phone] Social History Tobacco Use Types Packs/Day Years [...] Description 03/26/2025 10:30 AM EST Office Visit [facility] [address] [place] [address] Delilah Bridges MD [address] [place] [address] documented as of this encounter Visit Diagnoses Not on filedocumented in this encounter Additional Health Concerns Assessment Noted Time PHQ-9 Depression Total Score: 6 06/30/19 24 11:22 AM EDT documented as of this encounter Care Teams Sonography Technician Relationship Specialty Start Date End Date Delilah Bridges MD [address] [place] [address] PCP - General Family Medicine 02/15/18 Sharifa Duncan MD [address] [place] [address] [address] [place] [address] Sleep Medicine 01/24/24 Tiffany Smith [address] [place] [address] [place] [address] Gynecology 03/30/24 Lito Rodas MD [address] [place] [address] [place] [address] Obstetrics and Gynecology 04/20/24 Pinky Clancy RN [address] [place] [address] Registered Nurse Family Medicine 01/24/25 Yajaira López 01/24/25 documented as of this encounter
--- OUTSIDE RECORDS SUMMARY | 2025-01-25 00:59 | XMS_ITS | Encounter Summary ---
Author Organization [employer] Address 75 [facility] 7t [place] [address] Care Team Providers Care Rug Setter Velvet Name Role Phone Delilah Bridges MD Primary Care Provider [phone] Sharifa Duncan MD Unavailable Tiffany Smith Unavailable Lito Rodas MD Unavailable Pinky Clancy RN Unavailable [phone] Yajaira López Unavailable Reason for Visit * Reason Comments Med Refill Encounter Details Date Type Department Care Team (Late st Contact Info) Description 12/07/2024 Refill [facility] 230 [place], [place] [phone] Delilah Bridges MD 230 [place], [place] [phone] Strain of neck muscle, subsequent encounter Social [...] 03/26/2025 10:30 AM EST Office Visit [facility] [address] [place] [address] Delilah Bridges MD [address] [place] [address] documented as of this encounter Visit Diagnoses Diagnosis Strain of neck muscle, subsequent encounter documented in this encounter Additional Health Concerns Assessment Noted Time PHQ-9 Depression Total Score: 0 11/28/19 25 10:38 AM EDT documented as of this encounter Care Teams Rug Setter Velvet Relationship Specialty Start Date End Date Delilah Bridges MD [address] [place] [address] PCP - General Family Medicine 02/15/18 Sharifa Duncan MD [address] [place] [address] Sleep Medicine 01/24/24 Tiffany Smith [address] [place] [address] Gynecology 03/30/24 Lito Rodas MD [address] [place] [address] Obstetrics and Gynecology 04/20/24 Pinky Clancy RN [address] [place] [address] Registered Nurse Family Medicine 01/24/25 Yajaira López 01/24/25 documented as of this encounter
--- OUTSIDE RECORDS SUMMARY | 2025-01-25 00:59 | XMS_ITS ---
Author Organization [employer] Address 75 [facility] 7t [place] [address] Care Team Providers Care Heel Seat Pounder Name Role Phone Carter, Delilah ANDRE Primary Care Provider [phone] Sharifa Duncan MD Unavailable Tiffany Smith Unavailable Lito Rodas MD Unavailable Pinky Clancy RN Unavailable [phone] Yajaira López Unavailable [facility] Status:Outreach In Progress (Enrolling) Start date:01/24/2025 Enrollment reason:ADT Feed Overview ED- Pt went to [facility] ED on 01/23/25. Please outreach for enrollment. Case Team Name Relationship Phone Yajaira López(Responsible Staff) [phone] Continued Care and Services Coordination
== END 2025-01-24 19:23 | disposition home or self-care (01) ==
PROVIDERS: Physician Assistant Medical; Emergency Provider Emergency Medicine; PCP Family Medicine
DX: I95.1 Orthostatic hypotension (principal); R42 Dizziness and giddiness; Z03.818 Encounter for observation for suspected exposure to other biological agents ruled out; Z79.899 Other long term (current) drug therapy
CPT/HCPCS: 36415; 80048; 80076; 83735; 84443; 84484; 84702; 85025; 85610; 87637; 93005; 96360; 99283; 99284; J7120

== ENCOUNTER → 2025-01-24 14:14 | Outpatient (BNV) | payer MEDICAID, SELFPAY | PROVIDERS: Emergency Provider Emergency Medicine; PCP Family Medicine; Visit Provider Internal Medicine Cardiovascular Disease | DX: R94.31 Abnormal electrocardiogram [ECG] [EKG] (principal); R42 Dizziness and giddiness | CPT/HCPCS: 93010 ==